=== PATIENT | male | born 1965 | race Caucasian/White ===

== ENCOUNTER 2017-06-20 23:52 | Emergency (ER) | payer OTHER ==
[2017-06-21 00:27] VITALS: BP 143/94; PULSE 102; O2SAT 96
[2017-06-21] MEDS ORDERED: PHENERGAN 25 MG PO ONE (00:47)
[2017-06-21] MEDS ORDERED: PHENERGAN 25 MG ONE (00:48)
--- NOTE | 2017-06-21 00:53 | ERPHSYRPT ---
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 pt states he lost his father a month ago and has been struggling to cope with his loss and today he had a really rough day and argued with his mother and family; pt states he was just drinking alcohol to cope with his loss and family issues. Triage Nursing Assessment: pt ambulated to room per self; a&o x3; skin p, w, & d ; pt's speech slightly slurred and slow but answers appropriately; pt denies any other distress or discomfort other than states he feels slightly nauseous. 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 pt states he lost his father a month ago and has been struggling to cope with his loss and today he had a really rough day and argued with his mother and family; pt states he was just drinking alcohol to cope with his loss and family issues. Timing/Duration: today Severity of Symptoms-Max: none Severity of Symptoms-Current: none Context related to: parent, recent Associated Symptoms: depressed, frustrated, No agitated, No anxiety, No confused , No hostile, No hallucinating, No impaired concentration, No ingestion, No injury, No insomnia, No paranoid, No suicidal ideation Previous symptoms: no prior history Allergies/Adverse Reactions: Penicillins Allergy (Mild, Verified 06/21/17 00:27) Home Medications: Pravastatin Sodium [Pravachol] 10 mg PO HS 11/14/15 [History] Hx Tetanus, Diphtheria Vaccination/Date Given: No Hx Influenza Vaccination/Date Given: No Hx Pneumococcal Vaccination/Date Given: No Immunizations Up to Date: No - Past Medical History Pertinent Past Medical History: No Cardiac History: Other Other Medical History: tendonitis rt arm. pericarditis - Past Surgical History Past Surgical History: Yes Musculoskeletal: Amputation Other Surgical History: left fifth finger amputation at [facility] - Social History Smoking Status: Current every day smoker How long have you smoked: 25 Exposure to second hand smoke: No Drug Use: none Patient Lives Alone: No - Review of Systems Constitutional: No Fever, No Chills Eyes: No Symptoms Ears, Nose, & Throat: No Symptoms Respiratory: No Cough, No Dyspnea Cardiac: No Chest Pain, No Edema, No Syncope Abdominal/Gastrointestinal: No Abdominal Pain, No Nausea, No Vomiting, No Diarrhea Genitourinary Symptoms: No Dysuria Musculoskeletal: No Back Pain, No Neck Pain Skin: No Rash Neurological: No Dizziness, No Focal Weakness, No Sensory Changes Psychological: Alcohol Abuse, Depression Endocrine: No Symptoms All Other Systems: Reviewed and Negative - Nursing Vital Signs Nursing Vital Signs: Initial Vital Signs Temperature 98 F 06/21/17 00:05 Pulse Rate 102 H 06/21/17 00:05 Respiratory Rate 14 06/21/17 00:05 Blood Pressure 143/94 06/21/17 00:05 O2 Sat by Pulse Oximetry 96 06/21/17 00:05 Pain Scale Pain Intensity 3 - Physical Exam General Appearance: no apparent distress Eyes, Ears, Nose, Throat Exam: normal ENT inspection Neck Exam: normal inspection Gastrointestinal/Abdominal Exam: soft Neurological Exam: alert, normal mood/affect, calm Appearance: appropriate appearance, no memory impairment, denies illness Behavior/Eye Contact/Speech: alert & cooperative Thoughts/Hallucinations: normal thought pattern, no apparent hallucination Skin Exam: normal color SpO2 Interpretation: normal SpO2: 96 Oxygen Delivery: Room Air - Course Nursing assessment & vital signs reviewed: Yes Ordered Tests: Medication Summary Generic Name Dose Route Start Last Admin Trade Name Freq PRN Reason Stop Dose Admin Promethazine HCl 25 mg 06/21/17 00:47 Phenergan 25 Mg PO 06/21/17 00:48 STAT ONE - Progress Progress: improved Progress Note: 06/21/17 00:50 I have a long discussion with patient and his about patient. Current situation with his mother and recent of his father. Patient is very cooperative and he understand the consequences of alcohol use and hydrocodone use to gather. I advise patient to go to [facility] for counseling which patient and his . They both agreed. Patient also agreed that he will not take anymore hydrocodone, as well as he will not drink anymore and his confirms that too. Patient wants to go home and I advised him to stay away from alcohol and hydrocodone, as well as his also agreed and she is going to take away all those hydrocodone's and alcohol of a from him and see Will take him to [facility] on Friday. She is advised that if situation worsens, she can bring him back to the emergency room. Counseled pt/family regarding: diagnosis, need for follow-up ([facility]) - Departure Time of Disposition: 00:53 Departure Disposition: Home Clinical Impression: Alcohol cessation counseling, Depressed affect, Other, mixed, or unspecified nondependent drug abuse, episodic Condition: Stable Critical Care Time: Yes Critical Care Time(excluding separately billable procedures): 30-74 minutes Referrals: GEOVANY LUX [Primary Care Provider] - Instructions: Alcohol Abuse and Alcoholism (DC), Adjustment Disorder, Depression, Screening for Depression, Tips for How to Help Your Mood Additional Instructions: Please do not drink any more alcohol, as well as do not take any more hydrocodone with alcohol, which is dangerous to your health and can cause factor liver damage. You are suffering from situational depression and you do need counseling. He should follow-up at [facility] on Friday as you can have a walk-in appointment. If your symptoms, and situation get worse. you always can come back to the emergency room KEYSNEIL was seen on 06/21/17 n the Emergency Room. At that time you were treated for an emergent condition, during your visit Laboratory, Radiology and/or other procedures may have been ordered. It is very important that you follow-up with your Primary Care Physician GEOVANY LUX within the next 24- 48 hours to review your Emergency Room visit and the final results of testing that was ordered. Some test results such as Urine Cultures, Blood Cultures, and other cultures if ordered will not be finalized for 24-48 hours. If you do not have a Primary Care Provider please call the medical records department at [phone] to obtain a copy of your results or you may sign into our patient portal to obtain these results by visiting us @ [email or web address] and completing the following steps: 1. Click on the Patient Portal link 2. Click the Patient Self Enrollment Link to complete the enrollment form and entering your 3. Once the enrollment form is completed you will receive an email with a temporary ID and password at the email address you provided. 4. Next choose a user name and password. Your user name must be at least 4 characters long and your password must be at least 4 characters long. 5. Choose a security question from the list and provide your answer to the question. If you already have signed into the Health Portal you may access your Health Care Information 14/10 by the following steps: 1. Login to our website @ [email or web address] 2. Enter your original user name and password. FAQS The [facility] Health Portal is an online tool that contains your Lab Results, Radiology Reports, Visit History, Discharge Instructions and Health Summary Lab and Radiology Results will not be available for 72 hours on the portal. The Portal is a secure site, passwords are encryted and URLs are re-written so they cannot be copied and pasted. You and authorized family members are the only ones who can access your Portal. Also there is a timeout feature that protects your information if you leave the Portal page open. If you have technical difficulty please use the Contact Us link on the page this will allow you to submit any questions you have regarding the Portal or you may contact the Medical Record Department at [phone]. Prescriptions: Promethazine HCl 12.5 mg PO Q6H PRN #20 tablet PRN Reason: Nausea
== END 2017-06-21 01:04 | disposition home or self-care (01) ==
LOC: ED 23:52
DX: F39 Unspecified mood [affective] disorder (principal); F19.10 Other psychoactive substance abuse, uncomplicated; Z71.41 Alcohol abuse counseling and surveillance of alcoholic; F10.10 Alcohol abuse, uncomplicated
CPT/HCPCS: 99283; A9270-GY

== ENCOUNTER 2018-09-07 10:11 | Emergency (ER) | payer OTHER ==
[2018-09-07] MEDS ORDERED: Sodium Chloride 0.9% 1000 ML 1,000 ML IV STA (10:20)
[2018-09-07] MEDS ORDERED: Zofran 4 MG/2 ML VIAL IV ONE (10:20)
[2018-09-07] MEDS ORDERED: PROTONIX 40 MG IV IV ONE (10:20)
--- NOTE | 2018-09-07 10:20 | ERPHSYRPT ---
- History of Present Illness Time Seen by Provider: 09/07/18 10:18 Historian: patient, EMS Exam Limitations: no limitations Physician History: 53 y/o white male presents via EMS for feeling weak, shaky and hot. sx began this am. no vomiting but has nausea. no diarrhea. no cp and no abd pain. pt denies new meds. pt does drink beer every day. last alcohol intake was at 2230 last night. pt denies illicit drug use but pt is prescribed benzodiazepines and hydrocodone. pt denies new emotional stressors Timing/Duration: today Activities at Onset: none Abdominal Pain Onset Location: other (no pain) Pain Radiation: no radiation Severity of Pain-Max: none Severity of Pain-Current: none Modifying Factors: Improves With: nothing Associated Symptoms: diaphoresis, nausea Previous symptoms: no prior history Allergies/Adverse Reactions: Penicillins Allergy (Mild, Verified 09/07/18 10:26) Home Medications: Alprazolam 0.5 mg [xanAX 0.5 MG] 0.5 mg DAILY 09/07/18 [History] Hx Tetanus, Diphtheria Vaccination/Date Given: No Hx Influenza Vaccination/Date Given: No Hx Pneumococcal Vaccination/Date Given: No - Review of Systems Constitutional: Weakness Eyes: No Symptoms Ears, Nose, & Throat: No Symptoms Cardiac: No Symptoms Abdominal/Gastrointestinal: Nausea Genitourinary Symptoms: No Symptoms Musculoskeletal: No Symptoms Skin: Other (diaphoresis) Neurological: No Symptoms Psychological: No Symptoms Endocrine: No Symptoms Hematologic/Lymphatic: No Symptoms Immunological/Allergic: No Symptoms All Other Systems: Reviewed and Negative - Past Medical History Pertinent Past Medical History: No Neurological History: No Pertinent History ENT History: No Pertinent History Cardiac History: Other Respiratory History: No Pertinent History Endocrine Medical History: No Pertinent History Musculoskeletal History: No Pertinent History GI Medical History: No Pertinent History History: No Pertinent History Psycho-Social History: No Pertinent History Male Reproductive Disorders: No Pertinent History Other Medical History: tendonitis rt arm. pericarditis - Past Surgical History Past Surgical History: Yes Neuro Surgical History: No Pertinent History Cardiac: No Pertinent History Respiratory: No Pertinent History Gastrointestinal: No Pertinent History Musculoskeletal: Amputation Male Surgical History: No Pertinent History Other Surgical History: left fifth finger amputation at [facility] - Social History Smoking Status: Current every day smoker How long have you smoked: 25 Exposure to second hand smoke: No Drug Use: none Patient Lives Alone: No - Nursing Vital Signs Nursing Vital Signs: Initial Vital Signs Temperature 97.9 F 09/07/18 10:11 Pulse Rate 74 09/07/18 10:11 Respiratory Rate 16 09/07/18 10:11 Blood Pressure 151/103 09/07/18 10:11 O2 Sat by Pulse Oximetry 100 09/07/18 10:11 Pain Scale Pain Intensity 0 - Physical Exam General Appearance: mild distress, alert, anxiety Eye Exam: PERRL/EOMI, eyes nml inspection Ears, Nose, Throat Exam: normal ENT inspection, moist mucous membranes Neck Exam: normal inspection, non-tender, supple, full range of motion Respiratory Exam: normal breath sounds, lungs clear, airway intact, No chest tenderness, No respiratory distress Cardiovascular Exam: regular rate/rhythm, normal heart sounds, normal peripheral pulses Gastrointestinal/Abdomen Exam: soft, normal bowel sounds, No tenderness Rectal Exam: not done Back Exam: normal inspection, normal range of motion, No CVA tenderness, No vertebral tenderness Extremity Exam: normal inspection, normal range of motion, pelvis stable Neurologic Exam: alert, oriented x 3, cooperative, barrel lapper II-XII nml as tested Skin Exam: normal color, warm, dry Lymphatic Exam: No adenopathy SpO2 Interpretation: normal SpO2: 100 O2 Delivery: Room Air - Course Nursing assessment & vital signs reviewed: Yes EKG Interpreted by Me: RATE ([id number]), Sinus Rhythm, NORMAL AXIS, NORMAL INTERVALS, NORMAL QRS Ordered Tests: Active Orders 24 hr Category Date Time Status Clean Catch Urine Specimen STAT Care 09/07/18 10:20 Active EKG-ER Only STAT Care 09/07/18 10:36 Active IV Insertion STAT Care 09/07/18 10:20 Active AMYLASE Stat Lab 09/07/18 10:45 Completed Alcohol [ETHYL ALCOHOL] Stat Lab 09/07/18 10:35 Completed CBC W DIFF Stat Lab 09/07/18 10:45 Completed CMP Stat Lab 09/07/18 10:45 Completed LIPASE Stat Lab 09/07/18 10:45 Completed Lactic Acid Stat Lab 09/07/18 10:45 Results UA W/RFX UR CULTURE Stat Lab 09/07/18 11:09 Completed Urine Triage Profile Stat Lab 09/07/18 11:09 Ordered Medication Summary Discontinued Medications Generic Name Dose Route Start Last Admin Trade Name Freq PRN Reason Stop Dose Admin Famotidine 20 mg 09/07/18 10:44 09/07/18 10:51 Pepcid 20 Mg Vial IV 09/07/18 10:45 20 mg STAT ONE Administration Famotidine Confirm 09/07/18 10:43 Pepcid 20 Mg Vial Administered 09/07/18 10:44 Dose 20 mg IV .STK-MED ONE Sodium Chloride 1,000 mls @ 999 mls/hr 09/07/18 10:20 09/07/18 10:51 Sodium Chloride 0.9% 1000 Ml IV 09/07/18 11:20 999 mls/hr .Q1H1M STA Administration Sodium Chloride Confirm 09/07/18 10:37 Sodium Chloride 0.9% 1000 Ml Administered 09/07/18 10:38 Dose 1,000 mls @ ud .ROUTE .STK-MED ONE Ondansetron HCl 4 mg 09/07/18 10:20 09/07/18 11:08 Zofran 4 Mg/2 Ml Vial IV 09/07/18 10:21 Not Given STAT ONE Ondansetron HCl Confirm 09/07/18 10:36 Zofran 4 Mg/2 Ml Vial Administered 09/07/18 10:37 Dose 4 mg .ROUTE .STK-MED ONE Pantoprazole Sodium 40 mg 09/07/18 10:20 09/07/18 10:40 Protonix 40 Mg Iv IV 09/07/18 10:21 Not Given STAT ONE Lab/Rad Data: Laboratory Result Diagrams 09/07/18 10:45 09/07/18 10:45 Laboratory Results 09/07/18 09/07/18 09/07/18 Range/Units 11:09 10:45 10:45 WBC (4.0-10.5) K/mm3 RBC (4.1-5.6) M/mm3 Hgb (12.5-18.0) gm/dl Hct (42-50) % MCV (78-100) fl MCH (26-32) pg MCHC (32-36) g/dl RDW (11.5-14.0) % Plt Count (150-450) K/mm3 MPV (6-9.5) fl Gran % (36.0-66.0) % Eos # (Auto) (0-0.5) Absolute Lymphs (auto) (1.0-4.6) Absolute Monos (auto) (0.0-1.3) Lymphocytes % (24.0-44.0) % Monocytes % (0.0-12.0) % Eosinophils % (0.00-5.0) % Basophils % (0.0-0.4) % Absolute Granulocytes (1.4-6.9) Basophils # (0-0.4) Sodium 140 (137-145) mmol/L Potassium 4.0 (3.5-5.1) mmol/L Chloride 105 (98-107) mmol/L Carbon Dioxide 25 (22-30) mmol/L Anion Gap 14.0 (5-15) MEQ/L BUN 6 L (9-20) mg/dL Creatinine 0.58 L (0.66-1.25) mg/dL Estimated GFR > 60.0 ML/MIN Glucose 72 L (74-106) mg/dL Lactic Acid 2.0 (0.4-2.0) Calcium 8.4 (8.4-10.2) mg/dL Total Bilirubin 0.20 (0.2-1.3) mg/dL AST 58 (17-59) U/L ALT 50 (0-50) U/L Alkaline Phosphatase 63 (38-126) U/L Serum Total Protein 6.5 (6.3-8.2) g/dL Albumin 3.6 (3.5-5.0) g/dL Amylase 39 (30-110) U/L Lipase 78 (23-300) U/L Urine Color YELLOW (YELLOW) Urine Appearance CLEAR (CLEAR) Urine pH 5.0 (5-6) Ur Specific [place] 1.013 (1.005-1.025) Urine Protein NEGATIVE (Negative) Urine Ketones NEGATIVE (NEGATIVE) Urine Blood NEGATIVE (0-5) Cristino/ul Urine Nitrite NEGATIVE (NEGATIVE) Urine Bilirubin NEGATIVE (NEGATIVE) Urine Urobilinogen NEGATIVE (0-1) mg/dL Ur Leukocyte Esterase NEGATIVE (NEGATIVE) Urine WBC (Auto) NONE (0-5) /HPF Urine RBC (Auto) NONE SEEN (0-2) /HPF U Hyaline Cast (Auto) 0-2 (0-2) /LPF U Epithel Cells (Auto) RARE (FEW) /HPF Urine Bacteria (Auto) NONE SEEN (NEGATIVE) /HPF Urine Mucus (Auto) SLIGHT (NEGATIVE) /HPF Urine Culture Reflexed NO (NO) Urine Glucose NEGATIVE (NEGATIVE) mg/dL Ethyl Alcohol (0-10) mg/dL 09/07/18 09/07/18 Range/Units 10:45 10:35 WBC 3.8 L (4.0-10.5) K/mm3 RBC 3.86 L (4.1-5.6) M/mm3 Hgb 12.8 (12.5-18.0) gm/dl Hct 38.7 L (42-50) % MCV 100.3 H (78-100) fl MCH 33.1 H (26-32) pg MCHC 33.1 (32-36) g/dl RDW 12.4 (11.5-14.0) % Plt Count 227 (150-450) K/mm3 MPV 8.4 (6-9.5) fl Gran % 55.9 (36.0-66.0) % Eos # (Auto) 0.04 (0-0.5) Absolute Lymphs (auto) 1.18 (1.0-4.6) Absolute Monos (auto) 0.44 (0.0-1.3) Lymphocytes % 31.1 (24.0-44.0) % Monocytes % 11.6 (0.0-12.0) % Eosinophils % 1.1 (0.00-5.0) % Basophils % 0.3 (0.0-0.4) % Absolute Granulocytes 2.12 (1.4-6.9) Basophils # 0.01 (0-0.4) Sodium (137-145) mmol/L Potassium (3.5-5.1) mmol/L Chloride (98-107) mmol/L Carbon Dioxide (22-30) mmol/L Anion Gap (5-15) MEQ/L BUN (9-20) mg/dL Creatinine (0.66-1.25) mg/dL Estimated GFR ML/MIN Glucose (74-106) mg/dL Lactic Acid (0.4-2.0) Calcium (8.4-10.2) mg/dL Total Bilirubin (0.2-1.3) mg/dL AST (17-59) U/L ALT (0-50) U/L Alkaline Phosphatase (38-126) U/L Serum Total Protein (6.3-8.2) g/dL Albumin (3.5-5.0) g/dL Amylase (30-110) U/L Lipase (23-300) U/L Urine Color (YELLOW) Urine Appearance (CLEAR) Urine pH (5-6) Ur Specific [place] (1.005-1.025) Urine Protein (Negative) Urine Ketones (NEGATIVE) Urine Blood (0-5) Cristino/ul Urine Nitrite (NEGATIVE) Urine Bilirubin (NEGATIVE) Urine Urobilinogen (0-1) mg/dL Ur Leukocyte Esterase (NEGATIVE) Urine WBC (Auto) (0-5) /HPF Urine RBC (Auto) (0-2) /HPF U Hyaline Cast (Auto) (0-2) /LPF U Epithel Cells (Auto) (FEW) /HPF Urine Bacteria (Auto) (NEGATIVE) /HPF Urine Mucus (Auto) (NEGATIVE) /HPF Urine Culture Reflexed (NO) Urine Glucose (NEGATIVE) mg/dL Ethyl Alcohol 94 H (0-10) mg/dL - Progress Progress: improved, re-examined Counseled pt/family regarding: lab results, diagnosis, need for follow-up - Departure Departure Disposition: Home Clinical Impression: Weakness Condition: Stable Critical Care Time: No Referrals: GEOVANY LUX [Primary Care Provider] - Additional Instructions: avoid alcohol ingestion. take your medications as prescribed. follow up with your primary doctor for further management
[2018-09-07] MEDS ORDERED: Zofran 4 MG/2 ML VIAL ONE (10:36)
[2018-09-07] MEDS ORDERED: Sodium Chloride 0.9% 1000 ML 1,000 ML ONE (10:37)
[2018-09-07] MEDS ORDERED: Pepcid 20 MG VIAL IV ONE ×2 (10:43→10:44)
[2018-09-07 10:53] LABS: BASOPHIL % 0.3 % (0.0-0.4); Basophil (Absolute #) 0.01 (0-0.4); Eosinophil % 1.1 % (0.00-5.0); Eosinophil (Absolute #) 0.04 (0-0.5); Granulocyte Absolute (ANC) 2.12 (1.4-6.9); Granulocytes % 55.9 % (36.0-66.0); Hematocrit 38.7 % (42-50); Hemoglobin 12.8 gm/dl (12.5-18.0); Lymphocyte (Absolute #) 1.18 (1.0-4.6); Lymphocytes % 31.1 % (24.0-44.0); Mean Cell Volume 100.3 fl (78-100); Mean Corpuscular Hgb Concent. 33.1 g/dl (32-36); Mean Platelet Volume 8.4 fl (6-9.5); Monocytes % 11.6 % (0.0-12.0); Platelet Count 227 K/mm3 (150-450); Red Blood Count 3.86 M/mm3 (4.1-5.6); Red Cell Distribution Width 12.4 % (11.5-14.0); White Blood Count 3.8 K/mm3 (4.0-10.5)
[2018-09-07 10:58] LABS: ALBUMIN 3.6 g/dL (3.5-5.0); ALKALINE PHOSPHATASE 63 U/L (38-126); AMYLASE 39 U/L (30-110); BLOOD UREA NITROGEN 6 mg/dL (9-20); CHLORIDE 105 mmol/L (98-107); Calcium 8.4 mg/dL (8.4-10.2); Carbon Dioxide 25 mmol/L (22-30); Creatinine 1 0.58 mg/dL (0.66-1.25); Glucose 72 mg/dL (74-106); LIPASE 78 U/L (23-300); SGOT/AST 58 U/L (17-59); SGPT/ALT 50 U/L (0-50); SODIUM 140 mmol/L (137-145); Total Protein 6.5 g/dL (6.3-8.2)
[2018-09-07 10:59] LABS: Mean Corpuscular Hemoglobin 33.1 pg (26-32)
[2018-09-07 11:55] LABS: Appearance CLEAR (CLEAR); Bacteria NONE SEEN /HPF (NEGATIVE); Bilirubin NEGATIVE (NEGATIVE); Blood NEGATIVE Ery/ul (0-5); Glucose NEGATIVE (NEGATIVE); Hyaline Casts 0-2 /LPF (0-2); Ketones NEGATIVE (NEGATIVE); Leukocyte Esterase NEGATIVE (NEGATIVE); Mucus SLIGHT /HPF (NEGATIVE); Nitrite NEGATIVE (NEGATIVE); Protein,Urine Dip NEGATIVE (Negative); RBC NONE SEEN /HPF (0-2); Specific Gravity 1.013 (1.005-1.025); Urobilinogen NEGATIVE mg/dL (0-1)
[2018-09-07 11:56] LABS: Epithelial Cells RARE /HPF (FEW)
[2018-09-07 12:35] LABS: Amphetamine,Urine NEGATIVE (NEGATIVE); Barbiturate,Urine NEGATIVE (NEGATIVE); Benzodiazepine,Urine NEGATIVE (NEGATIVE); Cocaine,Urine NEGATIVE (NEGATIVE); Methadone,Urine NEGATIVE (NEGATIVE); Opiate,Urine POSITIVE (NEGATIVE); PCP,Urine NEGATIVE (NEGATIVE); THC,Urine POSITIVE (NEGATIVE)
[2018-09-07 13:11] VITALS: BP 137/88; PULSE 86; O2SAT 98
== END 2018-09-07 13:27 | disposition home or self-care (01) ==
LOC: ED 10:11
DX: R53.1 Weakness (principal)
CPT/HCPCS: 36415; 80053; 80307; 81001; 82150; 83605; 83690; 85025; 93005; 96360; 96361; 96374; 99284; G0480; 96375; J2405

== ENCOUNTER 2019-09-02 20:14 | Emergency (ER) | payer OTHER ==
[2019-09-02] MEDS ORDERED: Sodium Chloride 0.9% 1000 ML 1,000 ML IV STA (20:18)
[2019-09-02] MEDS ORDERED: Ativan 2 MG/1 ML VIAL IV ONE (20:18)
[2019-09-02] MEDS ORDERED: Ativan 2 MG/1 ML VIAL ONE (20:26)
[2019-09-02] MEDS ORDERED: Sodium Chloride 0.9% 1000 ML 1,000 ML ONE (20:29)
[2019-09-02] MEDS ORDERED: Vitamins For Infusion 10 ML INJECTION*** 10 ML, THIAMINE 200 MG/2 ML*** 100 MG, FOLNATE... IV SCH ×4 (20:30)
[2019-09-02 20:34] LABS: Absolute Neutrophil Ct (ANC) 3.63 (1.4-6.9); BASOPHIL % 0.2 % (0.0-0.4); Basophil (Absolute #) 0.01 (0-0.4); Eosinophil % 0.5 % (0.00-5.0); Eosinophil (Absolute #) 0.03 (0-0.5); Hematocrit 42.1 % (42-50); Hemoglobin 14.2 gm/dl (12.5-18.0); Lymphocytes % 23.1 % (24.0-44.0); Mean Cell Volume 99.5 fl (78-100); Mean Corpuscular Hemoglobin 33.6 pg (26-32); Mean Corpuscular Hgb Concent. 33.7 g/dl (32-36); Mean Platelet Volume 9.1 fl (7.5-11.0); Monocyte (Absolute #) 0.66 (0.0-1.3); Monocytes % 11.7 % (0.0-12.0); Neutrophil % 64.5 % (36.0-66.0); Platelet Count 150 K/mm3 (150-450); Red Blood Count 4.23 M/mm3 (4.1-5.6); Red Cell Distribution Width 13.2 % (11.5-14.0); White Blood Count 5.6 K/mm3 (4.0-10.5)
[2019-09-02] MEDS ORDERED: THIAMINE 200 MG/2 ML ONE (20:34)
[2019-09-02] MEDS ORDERED: THIAMINE 200 MG/2 ML IV ONE (20:35)
[2019-09-02 20:45] LABS: ALBUMIN 4.7 g/dL (3.5-5.0); ALKALINE PHOSPHATASE 109 U/L (38-126); ANION GAP 22.5 MEQ/L (5-15); BLOOD UREA NITROGEN 7 mg/dL (9-20); CHLORIDE 98 mmol/L (98-107); Calcium 9.8 mg/dL (8.4-10.2); Carbon Dioxide 18 mmol/L (22-30); Creatinine 1 0.65 mg/dL (0.66-1.25); Glucose 137 mg/dL (74-106); Potassium 3.5 mmol/L (3.5-5.1); SGOT/AST 121 U/L (17-59); SODIUM 135 mmol/L (137-145); Total Protein 8.1 g/dL (6.3-8.2)
[2019-09-02 21:01] LABS: ETHYL ALCOHOL < 10 mg/dL (0-10); SGPT/ALT 101 U/L (0-50)
[2019-09-02 21:17] LABS: Appearance CLEAR (CLEAR); Bilirubin NEGATIVE (NEGATIVE); Blood SMALL Ery/ul (0-5); Glucose NEGATIVE (NEGATIVE); Ketones NEGATIVE (NEGATIVE); Leukocyte Esterase NEGATIVE (NEGATIVE); Mucus SLIGHT /HPF (NEGATIVE); Nitrite NEGATIVE (NEGATIVE); Protein,Urine Dip 30 (Negative); Specific Gravity 1.005 (1.005-1.025); Urobilinogen NEGATIVE mg/dL (0-1)
[2019-09-02 21:24] LABS: Amphetamine,Urine NEGATIVE (NEGATIVE); Barbiturate,Urine NEGATIVE (NEGATIVE); Benzodiazepine,Urine NEGATIVE (NEGATIVE); Cocaine,Urine NEGATIVE (NEGATIVE); Methadone,Urine NEGATIVE (NEGATIVE); Opiate,Urine POSITIVE (NEGATIVE); PCP,Urine NEGATIVE (NEGATIVE); THC,Urine POSITIVE (NEGATIVE)
--- NOTE | 2019-09-02 21:55 | ERPHSYRPT ---
- History of Present Illness Time Seen by Provider: 09/02/19 20:40 Patient Subjective Stated Complaint: called 911 stated she found patient ( ) on floor shaking and what appeared to be convulsing. Triage Nursing Assessment: Patient arrived via ambulance. Patient awake and A/O times 4. Patient able to answer questions appropriatley. Patient did have urinary incontinence upon arrival to ER. Patient sof spoken. Patient does not recall the incident. at bedside stated they were in [place] and were playing a dice game when she noticed his tremors got worse and then she stated he started seizing. Upon arrival patient requested bedpan that he needed to have a BM. Lungs clear bilateral A/P throughout. Patient denies SOB. Patient denies chest pain. Cap refill < 3 seconds. No S/S of respiratory distress noted. + BS times 4 quads. ABD soft flat nondistended. Patient denies any pain or discomfort upon palpitation. Bilateral pedal pulses noted. Hand bottom filler strong and equal. Bilateral pupils brisk and reactive to light. Patient able to follow commands. Patient denies any N/V. stated patient did not hit head. Patient denies pain or discomfort. Patient denies H/A. Patient denies any numbness or tingling. Physician History: Patient is a 54-year-old white male who was noted to have seizure activity. It was felt this was probably related to alcohol withdrawal. Although the patient who is somewhat jittery and anxious. Apparently he had had no alcohol for 3 days. Does not report any previous history of seizure activity. Seizure was brief lasting about 15 seconds. Seizure was observed by his . Timing/Duration: today Severity: moderate Character of Deficits: none Deficits: no difficulties Baseline/Normal Cognition: alert oriented x 3 Current Cognition: alert oriented x 3 Baseline Gait: walks w/o assistance Associated Symptoms: loss of consciousness, seizures Allergies/Adverse Reactions: Penicillins Allergy (Mild, Verified 09/02/19 20:50) Home Medications: Alprazolam 0.5 mg [xanAX 0.5 MG] 0.5 mg DAILY 09/07/18 [History] Aspirin [Aspirin EC] 81 mg PO DAILY 09/02/19 [History] Baclofen 10 mg PO HS 09/02/19 [History] Cyanocobalamin (Vitamin B-12) [B-12] 5,000 mcg PO DAILY 09/02/19 [History] Gabapentin 600 mg PO DAILY 09/02/19 [History] Metoprolol Succinate 25 mg PO DAILY 09/02/19 [History] Sertraline HCl 50 mg PO DAILY 09/02/19 [History] Trazodone HCl 50 mg [Desyrel 50 mg] 50 mg PO HS 09/02/19 [History] Hx Tetanus, Diphtheria Vaccination/Date Given: Yes Hx Influenza Vaccination/Date Given: No Hx Pneumococcal Vaccination/Date Given: No Immunizations Up to Date: Yes Travel Risk - International Travel Have you traveled outside of the country in past 3 weeks: No - Coronavirus Screening Close contact with a COVID-19 positive Pt in past 14-21 Days: No - Review of Systems Constitutional: No Fever, No Chills Eyes: No Symptoms Ears, Nose, & Throat: No Symptoms Respiratory: No Cough, No Dyspnea Cardiac: No Chest Pain, No Edema, No Syncope Abdominal/Gastrointestinal: No Abdominal Pain, No Nausea, No Vomiting, No Diarrhea Genitourinary Symptoms: No Dysuria Musculoskeletal: No Back Pain, No Neck Pain Skin: No Rash Neurological: Seizure, No Dizziness, No Focal Weakness, No Sensory Changes Psychological: No Symptoms Endocrine: No Symptoms All Other Systems: Reviewed and Negative - Past Medical History Pertinent Past Medical History: No Neurological History: No Pertinent History ENT History: No Pertinent History Cardiac History: Other Respiratory History: No Pertinent History Endocrine Medical History: No Pertinent History Musculoskeletal History: No Pertinent History GI Medical History: No Pertinent History History: No Pertinent History Psycho-Social History: No Pertinent History Male Reproductive Disorders: No Pertinent History Other Medical History: tendonitis rt arm. pericarditis - Past Surgical History Past Surgical History: Yes Neuro Surgical History: No Pertinent History Cardiac: No Pertinent History Respiratory: No Pertinent History Gastrointestinal: No Pertinent History Genitourinary: No Pertinent History Musculoskeletal: Amputation Male Surgical History: No Pertinent History Other Surgical History: left fifth finger amputation at [facility] - Social History Smoking Status: Current every day smoker How long have you smoked: 25 years Exposure to second hand smoke: Yes Drug Use: none Patient Lives Alone: No - Nursing Vital Signs Nursing Vital Signs: Initial Vital Signs Temperature 97.8 F 09/02/19 20:23 Pulse Rate 91 H 09/02/19 20:23 Respiratory Rate 17 09/02/19 20:23 Blood Pressure 152/98 09/02/19 20:23 O2 Sat by Pulse Oximetry 99 09/02/19 20:23 Pain Scale Pain Intensity 0 - [place] Coma Scale Best Eye Response ([place]): (4) open spontaneously Best Verbal Response ([place]): (5) oriented Best Motor Response ([place]): (6) obeys commands [place] Total: 15 - Physical Exam General Appearance: mild distress Eye Exam: bilateral eye: PERRL, EOMI Ears, Nose, Throat Exam: normal ENT inspection, moist mucous membranes Neck Exam: normal inspection, non-tender, supple Respiratory: normal breath sounds, lungs clear, airway intact, No respiratory distress Cardiovascular: regular rate/rhythm, No edema Gastrointestinal: soft, No tenderness, No distention Back Exam: normal inspection Extremity Exam: normal inspection, No pedal edema Mental Status: alert, 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 Coordination/Gait: normal finger to nose, normal gait Motor/Sensory: no motor deficit, no sensory deficit Skin Exam: normal color SpO2 Interpretation: normal SpO2: 97 O2 Delivery: Room Air - Course Nursing assessment & vital signs reviewed: Yes - CT Exams Head CT Interpretation: Negative Ordered Tests: Active Orders 24 hr Category Date Time Status Accucheck STAT Care 09/02/19 20:18 Active IV Insertion STAT Care 09/02/19 20:18 Active IV Insertion-2nd Peripheral STAT Care 09/02/19 20:30 Active Seizure Precautions -SCCHED STAT Care 09/02/19 20:18 Active CHEST 1 VIEW (PORTABLE) Stat Exams 09/02/19 20:19 Ordered HEAD WITHOUT CONTRAST [CT] Stat Exams 09/02/19 20:19 Ordered CBC W DIFF Stat Lab 09/02/19 20:20 Completed CMP Stat Lab 09/02/19 20:20 Completed ETHYL ALCOHOL Stat Lab 09/02/19 20:20 Completed Lactic Acid Stat Lab 09/02/19 21:52 Completed UA W/RFX UR CULTURE Stat Lab 09/02/19 21:02 Completed Urine Triage Profile Stat Lab 09/02/19 21:02 Completed Medication Summary Generic Name Dose Route Start Last Admin Trade Name Freq PRN Reason Stop Dose Admin Multivitamins/Minerals 10 ml/ 1,000 mls @ 100 mls/hr 09/02/19 20:30 09/02/19 20:34 Thiamine HCl 100 mg/ Folic IV 10/02/19 20:29 Not Given Acid 1 mg/ Sodium Chloride .Q10H VERA Discontinued Medications Generic Name Dose Route Start Last Admin Trade Name Félix PRN Reason Stop Dose Admin Sodium Chloride 1,000 mls @ 999 mls/hr 09/02/19 20:18 09/02/19 21:06 Sodium Chloride 0.9% 1000 Ml IV 09/02/19 21:18 Infused .Q1H1M STA Infusion Sodium Chloride Confirm 09/02/19 20:29 Sodium Chloride 0.9% 1000 Ml Administered 09/02/19 20:30 Dose 1,000 mls @ ud .ROUTE .STK-MED ONE Lorazepam 2 mg 09/02/19 20:18 09/02/19 20:28 Ativan 2 Mg/1 Ml Vial IV 09/02/19 20:19 2 mg STAT ONE Administration Lorazepam Confirm 09/02/19 20:26 Ativan 2 Mg/1 Ml Vial Administered 09/02/19 20:27 Dose 2 mg .ROUTE .STK-MED ONE Thiamine HCl 100 mg 09/02/19 20:35 09/02/19 20:36 Thiamine 200 Mg/2 Ml IV 09/02/19 20:36 100 mg STAT ONE Administration Thiamine HCl Confirm 09/02/19 20:34 Thiamine 200 Mg/2 Ml Administered 09/02/19 20:35 Dose 200 mg .ROUTE .STK-MED ONE Lab/Rad Data: Laboratory Result Diagrams 09/02/19 20:20 09/02/19 20:20 Laboratory Results 09/02/19 09/02/19 09/02/19 Range/Units 21:52 21:02 21:02 WBC (4.0-10.5) K/mm3 RBC (4.1-5.6) M/mm3 Hgb (12.5-18.0) gm/dl Hct (42-50) % MCV (78-100) fl MCH (26-32) pg MCHC (32-36) g/dl RDW (11.5-14.0) % Plt Count (150-450) K/mm3 MPV (7.5-11.0) fl Gran % (36.0-66.0) % Eos # (Auto) (0-0.5) Absolute Lymphs (auto) (1.0-4.6) Absolute Monos (auto) (0.0-1.3) Lymphocytes % (24.0-44.0) % Monocytes % (0.0-12.0) % Eosinophils % (0.00-5.0) % Basophils % (0.0-0.4) % Absolute Granulocytes (1.4-6.9) Basophils # (0-0.4) Sodium (137-145) mmol/L Potassium (3.5-5.1) mmol/L Chloride (98-107) mmol/L Carbon Dioxide (22-30) mmol/L Anion Gap (5-15) MEQ/L BUN (9-20) mg/dL Creatinine (0.66-1.25) mg/dL Estimated GFR ML/MIN Glucose (74-106) mg/dL Lactic Acid 1.6 (0.4-2.0) Calcium (8.4-10.2) mg/dL Total Bilirubin (0.2-1.3) mg/dL AST (17-59) U/L ALT (0-50) U/L Alkaline Phosphatase (38-126) U/L Serum Total Protein (6.3-8.2) g/dL Albumin (3.5-5.0) g/dL Urine Color YELLOW (YELLOW) Urine Appearance CLEAR (CLEAR) Urine pH 6.0 (5-6) Ur Specific [place] 1.005 (1.005-1.025) Urine Protein 30 (Negative) Urine Ketones NEGATIVE (NEGATIVE) Urine Blood SMALL (0-5) Cristino/ul Urine Nitrite NEGATIVE (NEGATIVE) Urine Bilirubin NEGATIVE (NEGATIVE) Urine Urobilinogen NEGATIVE (0-1) mg/dL Ur Leukocyte Esterase NEGATIVE (NEGATIVE) Urine WBC (Auto) 3-5 (0-5) /HPF Urine RBC (Auto) NONE (0-2) /HPF U Hyaline Cast (Auto) 3-5 (0-2) /LPF U Epithel Cells (Auto) NONE (FEW) /HPF Urine Bacteria (Auto) NONE (NEGATIVE) /HPF Urine Mucus (Auto) SLIGHT (NEGATIVE) /HPF Urine Culture Reflexed NO (NO) Urine Glucose NEGATIVE (NEGATIVE) mg/dL Urine Opiates Level POSITIVE (NEGATIVE) Ur Methadone NEGATIVE (NEGATIVE) Urine Barbiturates NEGATIVE (NEGATIVE) Ur Phencyclidine (PCP) NEGATIVE (NEGATIVE) Urine Amphetamine NEGATIVE (NEGATIVE) U Benzodiazepine Level NEGATIVE (NEGATIVE) Urine Cocaine NEGATIVE (NEGATIVE) Urine Marijuana (THC) POSITIVE (NEGATIVE) Ethyl Alcohol (0-10) mg/dL 09/02/19 09/02/19 Range/Units 20:20 20:20 WBC 5.6 (4.0-10.5) K/mm3 RBC 4.23 (4.1-5.6) M/mm3 Hgb 14.2 (12.5-18.0) gm/dl Hct 42.1 (42-50) % MCV 99.5 (78-100) fl MCH 33.6 H (26-32) pg MCHC 33.7 (32-36) g/dl RDW 13.2 (11.5-14.0) % Plt Count 150 (150-450) K/mm3 MPV 9.1 (7.5-11.0) fl Gran % 64.5 (36.0-66.0) % Eos # (Auto) 0.03 (0-0.5) Absolute Lymphs (auto) 1.30 (1.0-4.6) Absolute Monos (auto) 0.66 (0.0-1.3) Lymphocytes % 23.1 L (24.0-44.0) % Monocytes % 11.7 (0.0-12.0) % Eosinophils % 0.5 (0.00-5.0) % Basophils % 0.2 (0.0-0.4) % Absolute Granulocytes 3.63 (1.4-6.9) Basophils # 0.01 (0-0.4) Sodium 135 L (137-145) mmol/L Potassium 3.5 (3.5-5.1) mmol/L Chloride 98 (98-107) mmol/L Carbon Dioxide 18 L (22-30) mmol/L Anion Gap 22.5 H (5-15) MEQ/L BUN 7 L (9-20) mg/dL Creatinine 0.65 L (0.66-1.25) mg/dL Estimated GFR > 60.0 ML/MIN Glucose 137 H (74-106) mg/dL Lactic Acid (0.4-2.0) Calcium 9.8 (8.4-10.2) mg/dL Total Bilirubin 0.70 (0.2-1.3) mg/dL AST 121 H (17-59) U/L ALT 101 H (0-50) U/L Alkaline Phosphatase 109 (38-126) U/L Serum Total Protein 8.1 (6.3-8.2) g/dL Albumin 4.7 (3.5-5.0) g/dL Urine Color (YELLOW) Urine Appearance (CLEAR) Urine pH (5-6) Ur Specific [place] (1.005-1.025) Urine Protein (Negative) Urine Ketones (NEGATIVE) Urine Blood (0-5) Cristino/ul Urine Nitrite (NEGATIVE) Urine Bilirubin (NEGATIVE) Urine Urobilinogen (0-1) mg/dL Ur Leukocyte Esterase (NEGATIVE) Urine WBC (Auto) (0-5) /HPF Urine RBC (Auto) (0-2) /HPF U Hyaline Cast (Auto) (0-2) /LPF U Epithel Cells (Auto) (FEW) /HPF Urine Bacteria (Auto) (NEGATIVE) /HPF Urine Mucus (Auto) (NEGATIVE) /HPF Urine Culture Reflexed (NO) Urine Glucose (NEGATIVE) mg/dL Urine Opiates Level (NEGATIVE) Ur Methadone (NEGATIVE) Urine Barbiturates (NEGATIVE) Ur Phencyclidine (PCP) (NEGATIVE) Urine Amphetamine (NEGATIVE) U Benzodiazepine Level (NEGATIVE) Urine Cocaine (NEGATIVE) Urine Marijuana (THC) (NEGATIVE) Ethyl Alcohol < 10 (0-10) mg/dL - Progress Progress: improved Counseled pt/family regarding: drug and/or alcohol abuse, lab results, diagnosis , need for follow-up - Departure Departure Disposition: Home Clinical Impression: Alcohol withdrawal seizure Condition: Stable Critical Care Time: No Referrals: GEOVANY LUX [Primary Care Provider] - Instructions: Seizures, Adult (DC) Prescriptions: Lorazepam 1 mg [Ativan 1 MG] 2 mg PO Q8H PRN PRN #24 tablet PRN Reason: Agitation
[2019-09-02] MEDS ORDERED: Ativan 1 MG ONE (23:11)
[2019-09-02 23:28] VITALS: BP 141/93; PULSE 78; O2SAT 98
--- NOTE | 2019-09-03 13:33 | XRAY ---
Exam: AP upright portable chest film from 09/02/2019. Comparison: Two-view chest from 12/16/2015. Indication: Seizure. Findings: The transverse heart size is normal. There is mild tortuosity of the aortic arch and distal descending thoracic aorta. The meggan and mediastinal structures appear unremarkable. Costochondral calcification is seen at the anterior margin of both first ribs. The lungs are adequately inflated. No air space infiltrates, vascular congestion, pneumothorax, or pleural fluid is seen. Slight mid thoracic dextroscoliosis is again seen. No acute osseous process is seen. Impression: 1. No infiltrates to suggest focal pneumonia or other acute cardiopulmonary disease is seen. The radiographic appearance is essentially unchanged from 12/16/2015.
--- NOTE | 2019-09-03 18:15 | XRAY ---
Exam: CT of the head without IV contrast from 09/02/2019. CTDI: 53.92 mGy Comparison: CT of the head without IV contrast from 08/20/2015. Indication: 54-year-old male with seizures/convulsions. No known injury. Technique: Non-IV contrast axial images were obtained through the brain. Reconstructed coronal and sagittal images were created and reviewed. Findings: The ventricles appear of unremarkable size. No focal mass effect or midline shift is seen. No acute intracranial bleed or abnormal extra-axial fluid collection is seen. Some subtle scattered foci of decreased attenuation are noted within the periventricular and subcortical white matter which may represent mild chronic microvascular disease. This is slightly more prominent on the current study as compared to the prior exam. Specifically, there is more apparent focal decreased attenuation within the white matter just above the right lateral ventricle on coronal images #42 and #43 and sagittal images #36 through #38. I believe this is partially seen on axial image #45 as well. No low attenuation territorial infarct is seen within a major cerebral or cerebellar artery distribution. There is occasional prominence of the cortical sulci. The basilar cisterns appear unremarkable. The calvarium of the skull appears intact without fracture. The right maxillary sinus appears extremely small, perhaps due to the sequela of chronic sinusitis. This is unchanged. There is moderate scattered mucosal thickening within the left maxillary sinus, most prominent inferiorly. There also appears to be a 1.5 cm in diameter retention cyst or polyp within the inferior aspect of the left maxillary sinus. A mild amount of scattered mucosal thickening is seen within the ethmoid sinuses, right slightly greater than left, which is unchanged. No paranasal sinus air-fluid levels are seen. The mastoid air cells appear clear without effusion. Mild deviation of the anterior nasal septum toward the right is seen. The orbits appear unremarkable. Impression: 1. There are subtle changes suggesting chronic microvascular disease. Compared to 08/20/2015, this is a bit more prominent just superior to the right lateral ventricle within the upper right parietal white matter. See above. 2. No acute intracranial bleed or other acute intracranial process is seen. 3. Stable chronic paranasal sinus disease, as discussed above.
[2019-09-03] MEDS ORDERED: Ativan 1 MG PO ONE (23:10)
== END 2019-09-02 23:25 | disposition home or self-care (01) ==
LOC: ED 20:14
DX: F10.239 Alcohol dependence with withdrawal, unspecified (principal); G40.89 Other seizures
CPT/HCPCS: 36000; 36415; 70450; 71045; 80053; 80307; 81001; 82962; 83605; 84146; 85025; 96374; 96375; 99284; G0480; J2060; A9270-GY

== ENCOUNTER 2019-10-26 11:09 | Emergency (ER) | payer OTHER ==
[2019-10-26 11:42] VITALS: O2SAT 100
[2019-10-26] MEDS: Catapres-TTS 1 PATCH TOP SCH (11:57)
--- NOTE | 2019-10-26 11:58 | ERPHSYRPT ---
- History of Present Illness Source: patient Exam Limitations: other (Poor historian) Patient Subjective Stated Complaint: HTN, FATIGUE Triage Nursing Assessment: PT AMBULATED TO ROOM, A/O, DENIES PAIN, LUNGS CLEAR, DENIES SOB, HEART SOUNDS NORMAL REGULAR Physician History: 54 yo wm who is a poor historian presents w elevated BP. He denies CP/focal weakness/Shortness of breath/AYALA/fever/neck stiffness. Pt is supposed to be taking Lopressor 25mg Qd and aldactone 25mg daily. He seems a little confused about his htn regimen, as he appears to take one or the other, instead of both daily. Timing/Duration: other (1-2 wks) Modifying Factors: Improves With: nothing Associated Symptoms: No nausea, No vomiting, No abdominal pain, No shortness of breath, No heartburn, No diaphoresis, No cough, No chills, No chest pain, No fever, No headaches, No loss of appetite, No malaise, No rash, No syncope, No seizure Allergies/Adverse Reactions: Penicillins Allergy (Mild, Verified 09/02/19 20:50) Home Medications: Alprazolam 0.5 mg [xanAX 0.5 MG] 0.5 mg DAILY 09/07/18 [History] Aspirin [Aspirin EC] 81 mg PO DAILY 09/02/19 [History] Baclofen 10 mg PO HS 09/02/19 [History] Cyanocobalamin (Vitamin B-12) [B-12] 5,000 mcg PO DAILY 09/02/19 [History] Gabapentin 600 mg PO DAILY 09/02/19 [History] Metoprolol Succinate 25 mg PO DAILY 09/02/19 [History] Sertraline HCl 50 mg PO DAILY 09/02/19 [History] Trazodone HCl 50 mg [Desyrel 50 mg] 50 mg PO HS 09/02/19 [History] Spironolactone 25 mg PO DAILY 10/26/19 [History] Hx Tetanus, Diphtheria Vaccination/Date Given: Yes Hx Influenza Vaccination/Date Given: No Hx Pneumococcal Vaccination/Date Given: No Immunizations Up to Date: Yes Travel Risk - International Travel Have you traveled outside of the country in past 3 weeks: No - Coronavirus Screening Are you exhibiting any of the following symptoms?: No Close contact with a COVID-19 positive Pt in past 14-21 Days: No - Review of Systems Constitutional: No Symptoms Eyes: No Symptoms Ears, Nose, & Throat: No Symptoms Respiratory: No Symptoms Cardiac: No Symptoms Abdominal/Gastrointestinal: No Symptoms Genitourinary Symptoms: No Symptoms Musculoskeletal: No Symptoms Skin: No Symptoms Neurological: No Symptoms Psychological: No Symptoms Endocrine: No Symptoms Hematologic/Lymphatic: No Symptoms Immunological/Allergic: No Symptoms - Past Medical History Pertinent Past Medical History: No Neurological History: No Pertinent History ENT History: No Pertinent History Cardiac History: Other Respiratory History: No Pertinent History Endocrine Medical History: No Pertinent History Musculoskeletal History: No Pertinent History GI Medical History: No Pertinent History History: No Pertinent History Psycho-Social History: No Pertinent History Male Reproductive Disorders: No Pertinent History Other Medical History: tendonitis rt arm. pericarditis - Past Surgical History Past Surgical History: Yes Neuro Surgical History: No Pertinent History Cardiac: No Pertinent History Respiratory: No Pertinent History Gastrointestinal: No Pertinent History Genitourinary: No Pertinent History Musculoskeletal: Amputation Male Surgical History: No Pertinent History Other Surgical History: left fifth finger amputation at [facility], [facility] - Social History Smoking Status: Current every day smoker How long have you smoked: 30 YRS Exposure to second hand smoke: Yes Drug Use: none Patient Lives Alone: No Significant Family History: no pertinent family hx - Nursing Vital Signs Nursing Vital Signs: Initial Vital Signs Temperature 98.0 F 10/26/19 11:23 Pulse Rate 80 10/26/19 11:23 Respiratory Rate 18 10/26/19 11:23 Blood Pressure 177/104 10/26/19 11:23 O2 Sat by Pulse Oximetry 100 10/26/19 11:23 - Physical Exam General Appearance: no apparent distress Eye Exam: PERRL/EOMI, eyes nml inspection Ears, Nose, Throat Exam: normal ENT inspection, TMs normal, pharynx normal, moist mucous membranes Neck Exam: normal inspection, non-tender, supple, full range of motion, No meningismus, No Brudzinski, No Kernig's, No carotid bruit Respiratory Exam: normal breath sounds, lungs clear, airway intact Cardiovascular Exam: regular rate/rhythm, normal heart sounds, normal peripheral pulses, No murmur Gastrointestinal/Abdomen Exam: soft, normal bowel sounds, No tenderness Back Exam: normal inspection, normal range of motion, No CVA tenderness Extremity Exam: normal inspection, normal range of motion Neurologic Exam: alert, oriented x 3, cooperative, 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 He is supposed to see his PCP on . Pt advised to thoroughly review his hypertensive meds with his PCP. He is instructed to return to ER for chest pain/focal weakness/AYALA. Counseled pt/family regarding: need for follow-up - Departure Departure Disposition: Home Clinical Impression: Hypertension Condition: Stable Critical Care Time: No Referrals: GEOVANY LUX [Primary Care Provider] - Instructions: High Blood Pressure in Adults, High Blood Pressure (DC) Additional Instructions: Follow up with your family MD on Keep patch on for one week or as direcrted by your doctor on Return to ER for focal weakness/chest pain/bad headaches/shortness of breath/heart rate less than 55
[2019-10-26] MEDS: Catapres-TTS 1 PATCH TOP STA (12:01)
[2019-10-26 12:04] VITALS: BP 142/94; PULSE 92
== END 2019-10-26 12:10 | disposition home or self-care (01) ==
LOC: ED 11:09
DX: I10 Essential (primary) hypertension (principal)
CPT/HCPCS: 99283; A9270-GY

== ENCOUNTER 2019-11-22 15:16 | Emergency (ER) | payer OTHER ==
--- NOTE | 2019-11-22 15:23 | ERPHSYRPT ---
- History of Present Illness Time Seen by Provider: 11/22/19 15:23 Source: patient, police Exam Limitations: no limitations Physician History: Is a 54-year-old gentleman who has a history of hypertension and chronic back problems who presents to the emergency department escorted by police because of suicidal ideation with a threat of hanging himself. The patient and his spouse are having difficulties. The patient called [facility] and made that statement. Patient states his mind is not right. Timing/Duration: today Severity of Symptoms-Max: mild Severity of Symptoms-Current: mild Context related to: spouse Suicidal thoughts: specific plan (Hanging himself) Associated Symptoms: suicidal ideation Previous symptoms: no prior history Allergies/Adverse Reactions: Penicillins Allergy (Mild, Verified 11/22/19 15:51) Home Medications: Aspirin [Aspirin EC] 81 mg PO DAILY 09/02/19 [History] Baclofen 10 mg PO HS 09/02/19 [History] Cyanocobalamin (Vitamin B-12) [B-12] 5,000 mcg PO DAILY 09/02/19 [History] Gabapentin 600 mg PO DAILY 09/02/19 [History] Metoprolol Succinate 25 mg PO DAILY 09/02/19 [History] Sertraline HCl 50 mg PO DAILY 09/02/19 [History] Trazodone HCl 50 mg [Desyrel 50 mg] 50 mg PO HS 09/02/19 [History] Spironolactone 25 mg PO DAILY 10/26/19 [History] Lorazepam 0.5 mg [Ativan 0.5 MG] 0.5 mg PO BID 11/22/19 [History] Hx Tetanus, Diphtheria Vaccination/Date Given: Yes Hx Influenza Vaccination/Date Given: No Hx Pneumococcal Vaccination/Date Given: No Travel Risk - International Travel Have you traveled outside of the country in past 3 weeks: No - Coronavirus Screening Are you exhibiting any of the following symptoms?: No Close contact with a COVID-19 positive Pt in past 14-21 Days: No - Past Medical History Pertinent Past Medical History: No Neurological History: No Pertinent History ENT History: No Pertinent History Cardiac History: Other Respiratory History: No Pertinent History Endocrine Medical History: No Pertinent History Musculoskeletal History: No Pertinent History GI Medical History: No Pertinent History History: No Pertinent History Psycho-Social History: No Pertinent History Male Reproductive Disorders: No Pertinent History Other Medical History: tendonitis rt arm. pericarditis - Past Surgical History Past Surgical History: Yes Neuro Surgical History: No Pertinent History Cardiac: No Pertinent History Respiratory: No Pertinent History Gastrointestinal: No Pertinent History Genitourinary: No Pertinent History Musculoskeletal: Amputation Male Surgical History: No Pertinent History Other Surgical History: left fifth finger amputation at [facility] - Social History Smoking Status: Current every day smoker How long have you smoked: 25 years Exposure to second hand smoke: Yes Drug Use: none Patient Lives Alone: No Significant Family History: no pertinent family hx - Review of Systems Constitutional: No Symptoms Eyes: No Symptoms Ears, Nose, & Throat: No Symptoms Respiratory: No Symptoms Cardiac: No Symptoms Abdominal/Gastrointestinal: No Symptoms Genitourinary Symptoms: No Symptoms Musculoskeletal: No Symptoms Skin: No Symptoms Neurological: No Symptoms Psychological: Suicidal Ideations Endocrine: No Symptoms Hematologic/Lymphatic: No Symptoms Immunological/Allergic: No Symptoms All Other Systems: Reviewed and Negative - Nursing Vital Signs Nursing Vital Signs: Initial Vital Signs Temperature 98.6 F 11/22/19 15:50 Pulse Rate 116 H 11/22/19 15:50 Blood Pressure 134/100 11/22/19 15:50 O2 Sat by Pulse Oximetry 98 11/22/19 15:50 Pain Scale Pain Intensity 0 - Physical Exam General Appearance: no apparent distress, alert, anxiety Eyes, Ears, Nose, Throat Exam: normal ENT inspection, moist mucous membranes Neck Exam: normal inspection, non-tender, supple, full range of motion Respiratory Exam: normal breath sounds, lungs clear, airway intact, No chest tenderness, No respiratory distress Cardiovascular Exam: regular rate/rhythm, normal heart sounds, normal peripheral pulses Gastrointestinal/Abdominal Exam: soft, normal bowel sounds, No tenderness Extremities Exam: normal inspection, normal range of motion, No evidence of injury Current Suicidality: has suicide plan (Hanging himself) Neurological Exam: alert, normal mood/affect, calm, mandrel cleaner II-XII nml as tested, oriented x 3 Appearance: appropriate appearance, appropriate insight Behavior/Eye Contact/Speech: alert & cooperative, avoids eye contact Thoughts/Hallucinations: no apparent hallucination Skin Exam: normal color, warm, dry SpO2 Interpretation: normal O2 Delivery: Room Air Ordered Tests: Active Orders 24 hr Category Date Time Status Clean Catch Urine Specimen STAT Care 08/31/20 15:23 Active EKG-ER Only STAT Care 11/22/19 15:23 Active Psychiatric Consult STAT Cons 11/22/19 15:24 Active ACETAMINOPHEN Stat Lab 11/22/19 15:40 Completed Alcohol [ETHYL ALCOHOL] Stat Lab 11/22/19 20:05 Completed CBC W DIFF Stat Lab 11/22/19 15:40 Completed CMP Stat Lab 11/22/19 15:40 Completed ETHYL ALCOHOL Stat Lab 11/22/19 15:40 Completed SALICYLATE Stat Lab 11/22/19 15:40 Completed UA W/RFX UR CULTURE Stat Lab 11/22/19 15:30 Completed Urine Triage Profile Stat Lab 11/22/19 15:30 Completed Lab/Rad Data: Laboratory Result Diagrams 11/22/19 15:40 11/22/19 15:40 Laboratory Results 11/22/19 11/22/19 11/22/19 Range/Units 20:05 15:40 15:40 WBC 6.3 (4.0-10.5) K/mm3 RBC 4.40 (4.1-5.6) M/mm3 Hgb 14.9 (12.5-18.0) gm/dl Hct 42.8 (42-50) % MCV 97.3 (78-100) fl MCH 33.9 H (26-32) pg MCHC 34.8 (32-36) g/dl RDW 13.2 (11.5-14.0) % Plt Count 226 (150-450) K/mm3 MPV 8.4 (7.5-11.0) fl Gran % 64.8 (36.0-66.0) % Eos # (Auto) 0.05 (0-0.5) Absolute Lymphs (auto) 1.32 (1.0-4.6) Absolute Monos (auto) 0.82 (0.0-1.3) Lymphocytes % 21.1 L (24.0-44.0) % Monocytes % 13.1 H (0.0-12.0) % Eosinophils % 0.8 (0.00-5.0) % Basophils % 0.2 (0.0-0.4) % Absolute Granulocytes 4.06 (1.4-6.9) Basophils # 0.01 (0-0.4) Sodium 135 L (137-145) mmol/L Potassium 3.7 (3.5-5.1) mmol/L Chloride 100 (98-107) mmol/L Carbon Dioxide 20 L (22-30) mmol/L Anion Gap 18.0 H (5-15) MEQ/L BUN 3 L (9-20) mg/dL Creatinine 0.56 L (0.66-1.25) mg/dL Estimated GFR > 60.0 ML/MIN Glucose 107 H (74-106) mg/dL Calcium 9.3 (8.4-10.2) mg/dL Total Bilirubin 0.40 (0.2-1.3) mg/dL AST 64 H (17-59) U/L ALT 46 (0-50) U/L Alkaline Phosphatase 98 (38-126) U/L Serum Total Protein 8.7 H (6.3-8.2) g/dL Albumin 4.9 (3.5-5.0) g/dL Urine Color (YELLOW) Urine Appearance (CLEAR) Urine pH (5-6) Ur Specific [place] (1.005-1.025) Urine Protein (Negative) Urine Ketones (NEGATIVE) Urine Blood (0-5) Cristino/ul Urine Nitrite (NEGATIVE) Urine Bilirubin (NEGATIVE) Urine Urobilinogen (0-1) mg/dL Ur Leukocyte Esterase (NEGATIVE) Urine WBC (Auto) (0-5) /HPF Urine RBC (Auto) (0-2) /HPF U Epithel Cells (Auto) (FEW) /HPF Urine Bacteria (Auto) (NEGATIVE) /HPF Urine Mucus (Auto) (NEGATIVE) /HPF Urine Culture Reflexed (NO) Urine Glucose (NEGATIVE) mg/dL Salicylates 1.1 L (2-20) mg/dL Urine Opiates Level (NEGATIVE) Ur Methadone (NEGATIVE) Acetaminophen < 10 L (10-30) ug/ml Urine Barbiturates (NEGATIVE) Ur Phencyclidine (PCP) (NEGATIVE) Urine Amphetamine (NEGATIVE) U Benzodiazepine Level (NEGATIVE) Urine Cocaine (NEGATIVE) Urine Marijuana (THC) (NEGATIVE) Ethyl Alcohol 167 H 259 H (0-10) mg/dL 11/22/19 11/22/19 Range/Units 15:30 15:30 WBC (4.0-10.5) K/mm3 RBC (4.1-5.6) M/mm3 Hgb (12.5-18.0) gm/dl Hct (42-50) % MCV (78-100) fl MCH (26-32) pg MCHC (32-36) g/dl RDW (11.5-14.0) % Plt Count (150-450) K/mm3 MPV (7.5-11.0) fl Gran % (36.0-66.0) % Eos # (Auto) (0-0.5) Absolute Lymphs (auto) (1.0-4.6) Absolute Monos (auto) (0.0-1.3) Lymphocytes % (24.0-44.0) % Monocytes % (0.0-12.0) % Eosinophils % (0.00-5.0) % Basophils % (0.0-0.4) % Absolute Granulocytes (1.4-6.9) Basophils # (0-0.4) Sodium (137-145) mmol/L Potassium (3.5-5.1) mmol/L Chloride (98-107) mmol/L Carbon Dioxide (22-30) mmol/L Anion Gap (5-15) MEQ/L BUN (9-20) mg/dL Creatinine (0.66-1.25) mg/dL Estimated GFR ML/MIN Glucose (74-106) mg/dL Calcium (8.4-10.2) mg/dL Total Bilirubin (0.2-1.3) mg/dL AST (17-59) U/L ALT (0-50) U/L Alkaline Phosphatase (38-126) U/L Serum Total Protein (6.3-8.2) g/dL Albumin (3.5-5.0) g/dL Urine Color STRAW (YELLOW) Urine Appearance CLEAR (CLEAR) Urine pH 6.0 (5-6) Ur Specific [place] 1.002 (1.005-1.025) Urine Protein NEGATIVE (Negative) Urine Ketones NEGATIVE (NEGATIVE) Urine Blood NEGATIVE (0-5) Cristino/ul Urine Nitrite NEGATIVE (NEGATIVE) Urine Bilirubin NEGATIVE (NEGATIVE) Urine Urobilinogen NEGATIVE (0-1) mg/dL Ur Leukocyte Esterase NEGATIVE (NEGATIVE) Urine WBC (Auto) NONE (0-5) /HPF Urine RBC (Auto) NONE (0-2) /HPF U Epithel Cells (Auto) NONE (FEW) /HPF Urine Bacteria (Auto) NONE (NEGATIVE) /HPF Urine Mucus (Auto) SLIGHT (NEGATIVE) /HPF Urine Culture Reflexed NO (NO) Urine Glucose NEGATIVE (NEGATIVE) mg/dL Salicylates (2-20) mg/dL Urine Opiates Level NEGATIVE (NEGATIVE) Ur Methadone NEGATIVE (NEGATIVE) Acetaminophen (10-30) ug/ml Urine Barbiturates NEGATIVE (NEGATIVE) Ur Phencyclidine (PCP) NEGATIVE (NEGATIVE) Urine Amphetamine NEGATIVE (NEGATIVE) U Benzodiazepine Level NEGATIVE (NEGATIVE) Urine Cocaine NEGATIVE (NEGATIVE) Urine Marijuana (THC) NEGATIVE (NEGATIVE) Ethyl Alcohol (0-10) mg/dL - Progress Progress Note: 11/22/19 17:23 Medical decision making: This patient eloped in the presence of the police here in the emergency department. They retrieved him. Patient will be placed on a 72-hour hold. 11/22/19 22:37 Patient is under emergency long term. Dr. Reina accepts the patient for transfer/admission. Counseled pt/family regarding: lab results, diagnosis - Departure Departure Disposition: Transfer Clinical Impression: Suicidal ideation Condition: Stable Critical Care Time: No Referrals: GEOVANY LUX [Primary Care Provider] -
[2019-11-22 15:47] LABS: Absolute Neutrophil Ct (ANC) 4.06 (1.4-6.9); BASOPHIL % 0.2 % (0.0-0.4); Basophil (Absolute #) 0.01 (0-0.4); Eosinophil % 0.8 % (0.00-5.0); Eosinophil (Absolute #) 0.05 (0-0.5); Hematocrit 42.8 % (42-50); Hemoglobin 14.9 gm/dl (12.5-18.0); Lymphocyte (Absolute #) 1.32 (1.0-4.6); Lymphocytes % 21.1 % (24.0-44.0); Mean Cell Volume 97.3 fl (78-100); Mean Corpuscular Hemoglobin 33.9 pg (26-32); Mean Corpuscular Hgb Concent. 34.8 g/dl (32-36); Mean Platelet Volume 8.4 fl (7.5-11.0); Monocyte (Absolute #) 0.82 (0.0-1.3); Monocytes % 13.1 % (0.0-12.0); Neutrophil % 64.8 % (36.0-66.0); Platelet Count 226 K/mm3 (150-450); Red Cell Distribution Width 13.2 % (11.5-14.0); White Blood Count 6.3 K/mm3 (4.0-10.5)
[2019-11-22 15:50] LABS: Appearance CLEAR (CLEAR); Bilirubin NEGATIVE (NEGATIVE); Blood NEGATIVE Ery/ul (0-5); Glucose NEGATIVE (NEGATIVE); Ketones NEGATIVE (NEGATIVE); Leukocyte Esterase NEGATIVE (NEGATIVE); Mucus SLIGHT /HPF (NEGATIVE); Nitrite NEGATIVE (NEGATIVE); Protein,Urine Dip NEGATIVE (Negative); Specific Gravity 1.002 (1.005-1.025); Urobilinogen NEGATIVE mg/dL (0-1)
[2019-11-22 15:59] LABS: ALBUMIN 4.9 g/dL (3.5-5.0); ALKALINE PHOSPHATASE 98 U/L (38-126); BLOOD UREA NITROGEN 3 mg/dL (9-20); CHLORIDE 100 mmol/L (98-107); Calcium 9.3 mg/dL (8.4-10.2); Carbon Dioxide 20 mmol/L (22-30); Creatinine 1 0.56 mg/dL (0.66-1.25); EST GLOMERULAR FILTRATION RATE > 60.0 ML/MIN; ETHYL ALCOHOL 259 mg/dL (0-10); Glucose 107 mg/dL (74-106); Potassium 3.7 mmol/L (3.5-5.1); SALICYLATE 1.1 mg/dL (2-20); SGOT/AST 64 U/L (17-59); SGPT/ALT 46 U/L (0-50); SODIUM 135 mmol/L (137-145); Total Protein 8.7 g/dL (6.3-8.2)
[2019-11-22 16:01] LABS: ACETAMINOPHEN < 10 ug/ml (10-30)
[2019-11-22 16:10] LABS: Amphetamine,Urine NEGATIVE (NEGATIVE); Barbiturate,Urine NEGATIVE (NEGATIVE); Benzodiazepine,Urine NEGATIVE (NEGATIVE); Cocaine,Urine NEGATIVE (NEGATIVE); Methadone,Urine NEGATIVE (NEGATIVE); Opiate,Urine NEGATIVE (NEGATIVE); PCP,Urine NEGATIVE (NEGATIVE); THC,Urine NEGATIVE (NEGATIVE)
[2019-11-23 00:17] VITALS: BP 158/98
[2019-11-23] MEDS ORDERED: Toprol-Xl 25MG Tablets PO ONE (00:24)
[2019-11-23] MEDS ORDERED: Toprol-Xl 25MG Tablets ONE (00:35)
[2019-11-23 01:41] VITALS: PULSE 99; O2SAT 98
== END 2019-11-23 02:00 | disposition short-term general hospital (02) ==
LOC: ED 15:16
DX: R45.851 Suicidal ideations (principal); I10 Essential (primary) hypertension
CPT/HCPCS: 36415; 80053; 80307; 81001; 85025; 93005; 99285; G0480; A9270-GY

== ENCOUNTER 2020-11-13 01:20 | Emergency (ER) | payer OTHER ==
[2020-11-13 01:25] VITALS: BP 135/87; PULSE 100; O2SAT 98
--- NOTE | 2020-11-13 02:21 | ERPHSYRPT ---
- History of Present Illness Time Seen by Provider: 11/13/20 01:57 Historian: patient Exam Limitations: no limitations Patient Subjective Stated Complaint: Patient states " My stomach has been hurting since yesterday but the pain got worse after I ate French this evening to the point I was scared to go to sleep." Triage Nursing Assessment: Patient arrived to ED via Ambulance. Patient A/O times 4. Patient able to follow instructions without difficulty. Patient able to ambulate without difficulty with steady gait. Patient states the left side of ABD has been hurting since yesterday but after eating French it became worse. Patient stated he tried to go home and go to sleep but the pain continued to get worse and then he was scared to go to sleep so he called 911. + BS times 4 quads. ABD soft, flat, non-distended. Patient complains of tenderness when RN palpitated upper and lower left side of ABD. Patient denies any pain or burning upon urination. Patient stated he was nauseated yesterday and vomited several times of undigested food but no further vomiting today. Patient stated he has had about 5-6 alcoholic drinks throughout the day. RN can smell alcohol on breath during assessment. Patient denies any chest pain or SOB. Patient with no edema present. + Radial and pedal pulses noted bilateral. Patient denies ABD pain radiates into back or bilateral flanks. Patient states pain is localized on left side of ABD. Patient denies any pain or trauma to ABD. Patient denies any loose stools. Physician History: 55 years old male with history of alcohol abuse presented in the ER by EMS with chief complaint of left-sided abdominal pain since yesterday. Patient report having multiple episodes of nonprojectile, nonbilious vomiting yesterday but no vomiting since morning and did eat some French food and his pain got worse. Patient reports earlier it was 7/10 intensity and currently 34/10 without any known significant aggravating or relieving factors. Denies any nausea or vomiting today. Did have 6-8 beers in all day last drink was almost 4 hours ago. Denies any urinary symptoms. No fever or chills reported. Patient is anxious and does not want anything to be done as he is scared of needles. Patient states "I am feeling much better and do not think I need to be in here and I would like to go home". Patient is not confused or altered at all although breath smells of alcohol. Timing/Duration: yesterday, intermittent, gradual onset, worse Activities at Onset: rest Quality: burning, cramping, dullness Abdominal Pain Onset Location: LUQ, LLQ Pain Radiation: no radiation Severity of Pain-Max: moderate Severity of Pain-Current: mild Modifying Factors: Worsens With: eating Associated Symptoms: heartburn, nausea, vomiting Previous symptoms: same symptoms as today Allergies/Adverse Reactions: Penicillins Allergy (Mild, Verified 11/13/20 01:26) Home Medications: No Reportable Medications [No Reported Medications] 11/13/20 [History] Hx Tetanus, Diphtheria Vaccination/Date Given: Yes Hx Influenza Vaccination/Date Given: No Hx Pneumococcal Vaccination/Date Given: No Travel Risk - International Travel Have you traveled outside of the country in past 3 weeks: No - Coronavirus Screening Are you exhibiting any of the following symptoms?: No Close contact with a COVID-19 positive Pt in past 14-21 Days: No - Vaccine Status Have you recieved a Covid-19 vaccination: Yes 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: [employer] - Review of Systems Constitutional: No Symptoms Eyes: No Symptoms Ears, Nose, & Throat: No Symptoms Respiratory: No Symptoms Cardiac: No Symptoms Abdominal/Gastrointestinal: Abdominal Pain, Nausea, Vomiting Genitourinary Symptoms: No Symptoms Musculoskeletal: No Symptoms Skin: No Symptoms Neurological: No Symptoms Psychological: Alcohol Abuse, Anxiety Endocrine: No Symptoms Hematologic/Lymphatic: No Symptoms Immunological/Allergic: No Symptoms - Past Medical History Pertinent Past Medical History: Yes Neurological History: No Pertinent History ENT History: No Pertinent History Cardiac History: Hypertension Respiratory History: No Pertinent History Endocrine Medical History: No Pertinent History Musculoskeletal History: No Pertinent History GI Medical History: No Pertinent History History: No Pertinent History Psycho-Social History: No Pertinent History Male Reproductive Disorders: No Pertinent History Other Medical History: tendonitis rt arm. pericarditis - Past Surgical History Past Surgical History: Yes Neuro Surgical History: No Pertinent History Cardiac: No Pertinent History Respiratory: No Pertinent History Gastrointestinal: No Pertinent History Genitourinary: No Pertinent History Musculoskeletal: Amputation Male Surgical History: No Pertinent History Other Surgical History: left fifth finger amputation at [facility] - Social History Smoking Status: Current every day smoker How long have you smoked: 15 years Exposure to second hand smoke: Yes Drug Use: none Patient Lives Alone: Yes Significant Family History: no pertinent family hx - Nursing Vital Signs Nursing Vital Signs: Initial Vital Signs Temperature 98.2 F 11/13/20 01:21 Pulse Rate 100 H 11/13/20 01:21 Respiratory Rate 20 11/13/20 01:21 Blood Pressure 135/87 11/13/20 01:21 O2 Sat by Pulse Oximetry 98 11/13/20 01:21 Pain Scale Pain Intensity 6 - Physical Exam General Appearance: no apparent distress, alert Eye Exam: PERRL/EOMI, eyes nml inspection Ears, Nose, Throat Exam: normal ENT inspection, pharynx normal Neck Exam: normal inspection, supple, full range of motion Respiratory Exam: normal breath sounds, lungs clear Cardiovascular Exam: regular rate/rhythm, normal heart sounds Gastrointestinal/Abdomen Exam: soft, normal bowel sounds, tenderness (Minimal tenderness in the left flank area/left lower quadrant.) Back Exam: normal inspection, normal range of motion Extremity Exam: normal inspection, normal range of motion, pelvis stable Neurologic Exam: alert, oriented x 3, cooperative Skin Exam: normal color SpO2 Interpretation: normal SpO2: 98 O2 Delivery: Room Air - Course EKG Interpreted by Me: RATE (92), Sinus Rhythm, NORMAL AXIS, NORMAL INTERVALS, Non-specific ST Changes - Progress Progress: unchanged Progress Note: Patient did not want anything to be done. Discussed with patient about risk of leaving without any work-up and he might have some serious pathology going on but he reports "I will come back if I have worsening in the right now I am feeling much better". Patient is not confused or altered. He is scared of needles and cannot wait for any imaging. He walked out of the ER in stable condition. Counseled pt/family regarding: diagnosis, need for follow-up - Departure Departure Disposition: AMA Clinical Impression: Left sided abdominal pain Condition: Stable Critical Care Time: No Referrals: GEOVANY LUX [Primary Care Provider] - Instructions: Acute Abdomen (Belly Pain), Adult (DC)
== END 2020-11-13 02:16 | disposition left against medical advice (07) ==
LOC: ED 01:20
DX: R10.9 Unspecified abdominal pain (principal)
CPT/HCPCS: 99283

== ENCOUNTER 2021-04-30 06:14 | Emergency (ER) | payer OTHER ==
--- NOTE | 2021-04-30 06:39 | ERPHSYRPT ---
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 He takes BP med in form of a patch. He feels tight spasm in left pectoralis. he has reproducible pain in the left chest and left upper abdomen to palpation in these areas. chest is clear. Ht is regular without murmur . abdomen is very tender with guarding. He reports a hx of pericarditis 4 years ago but no other heart problems. As pain is not typical for cardiac and there could be internal bleeding as a source we are holding ASA and nitro at this time. Timing/Duration: today Activities at Onset: other (after reaching to tile picker object ) Quality: sharpness, stabbing Location: other (left chest and abdomen) Chest Pain Radiation: abdomen Severity of Pain-Max: moderate Severity of Pain-Current: moderate Modifying Factors: Improves With: breathing, coughing, palpation Associated Symptoms: abdominal pain Nitro Today/Relief: no nitro taken today (could be internal chest or abd condition) Aspirin Treatment Today: no aspirin today (not typical cardiac pain - could be internal bleeding) Allergies/Adverse Reactions: Penicillins Allergy (Mild, Verified 04/30/21 07:00) Home Medications: Bp Patch 1 patch TD WEEKLY 04/30/21 [History] Lorazepam 0.5 mg [Ativan 0.5 MG] 0.5 mg PO BID 04/30/21 [History] Metoprolol Succinate 25 mg Xl* [Toprol-Xl 25MG Tablets] 25 mg PO BID 04/30/21 [History] Sertraline HCl 50 mg [Zoloft 50 mg Tablet] 50 mg PO DAILY 04/30/21 [History] Hx Tetanus, Diphtheria Vaccination/Date Given: Yes Hx Influenza Vaccination/Date Given: No Hx Pneumococcal Vaccination/Date Given: No Travel Risk - Vaccine Status Have you recieved a Covid-19 vaccination: Yes [employer]: [employer] - Review of Systems Constitutional: No Fever, No Chills Eyes: No Symptoms Ears, Nose, & Throat: No Symptoms Respiratory: No Cough, No Dyspnea Cardiac: Chest Pain, No Edema, No Syncope Abdominal/Gastrointestinal: Abdominal Pain, No Nausea, No Vomiting, No Diarrhea Genitourinary Symptoms: No Dysuria Musculoskeletal: No Back Pain, No Neck Pain Skin: No Rash Neurological: No Dizziness, No Focal Weakness, No Sensory Changes Psychological: No Symptoms Endocrine: No Symptoms All Other Systems: Reviewed and Negative - Past Medical History Pertinent Past Medical History: Yes Neurological History: No Pertinent History ENT History: No Pertinent History Cardiac History: Hypertension Respiratory History: No Pertinent History Endocrine Medical History: No Pertinent History Musculoskeletal History: No Pertinent History GI Medical History: No Pertinent History History: No Pertinent History Psycho-Social History: No Pertinent History Male Reproductive Disorders: No Pertinent History Other Medical History: tendonitis rt arm. pericarditis - Past Surgical History Past Surgical History: Yes Neuro Surgical History: No Pertinent History Cardiac: No Pertinent History Respiratory: No Pertinent History Gastrointestinal: No Pertinent History Genitourinary: No Pertinent History Musculoskeletal: Amputation Male Surgical History: No Pertinent History Other Surgical History: left fifth finger amputation at [facility] - Social History Smoking Status: Current every day smoker How long have you smoked: 15 years Exposure to second hand smoke: Yes Drug Use: none Patient Lives Alone: Yes Significant Family History: no pertinent family hx - Physical Exam General Appearance: no apparent distress, alert Eye Exam: PERRL/EOMI, eyes nml inspection Ears, Nose, Throat Exam: normal ENT inspection, moist mucous membranes Neck Exam: normal inspection, non-tender, supple, full range of motion Respiratory Exam: normal breath sounds, chest tenderness, lungs clear, airway intact, No respiratory distress Cardiovascular Exam: regular rate/rhythm, normal heart sounds Gastrointestinal/Abdomen Exam: soft, tenderness, guarding, No mass Rectal Exam: deferred Back Exam: normal inspection, No CVA tenderness, No vertebral tenderness Extremity Exam: normal inspection, normal range of motion Neurologic Exam: alert, oriented x 3, cooperative, normal mood/affect, sensation nml, No motor deficits Skin Exam: normal color, warm, dry SpO2 Interpretation: normal SpO2: 97 O2 Delivery: Room Air - Course Nursing assessment & vital signs reviewed: Yes EKG Interpreted by Me: Sinus Rhythm, ST Elev (in v2 slight ), Non-specific ST Changes - Progress Progress: improved, re-examined Air Movement: good Progress Note: 04/30/21 06:49 pt turned over to Dr. Dumont at change of shift for final interpretation of results and treatment and disposition, after introduction and discussion of pending labs and imaging. Blood Culture(s) Obtained: No Antibiotics given: No Counseled pt/family regarding: lab results, diagnosis, need for follow-up, rad results - Departure Clinical Impression: Renal cyst, Muscle strain of chest wall Condition: Stable Referrals: GEOVANY LUX [Primary Care Provider] - Follow up/PCP as directed Instructions: Chest Pain That Is Not Caused by the Heart (DC) Additional Instructions: Discharge/Care Plan NEIL TUCKER was seen on 04/30/21 in the Emergency Room. The patient was counseled regarding Diagnosis,Lab results, Imaging studies, need for follow up and when to return to the Emergency Room. Prescriptions given: Discharge Note I have spoken with the patient and/or caregivers. I have explained the patient's condition, diagnosis and treatment plan based on the information available to me at this time. I have answered the patient's and/or caregiver's questions and addressed any concerns. The patient and/or caregivers have as good understanding of the patient's diagnosis, condition and treatment plan as can be expected at this point. The vital signs have been stable. The patient's condition is stable and appropriate for discharge from the emergency department. The patient will pursue further outpatient evaluation with the primary care physician or other designated or consulting physician as outlined in the discharge instructions. The patient and/or caregivers are agreeable to this plan of care and follow-up instructions have been explained in detail. The patient and/or caregivers have received these instruction. The patient/and or caregivers are aware that any significant change in condition or worsening of symptoms should prompt an immediate return to this or the closest emergency department or call 911. <KRISHNA DUMONT - Last Filed: 04/30/21 12:02> - Nursing Vital Signs Nursing Vital Signs: Initial Vital Signs Temperature 98.7 F 04/30/21 06:17 Pulse Rate 80 04/30/21 06:17 Respiratory Rate 16 04/30/21 06:17 Blood Pressure 129/90 04/30/21 06:17 O2 Sat by Pulse Oximetry 97 04/30/21 06:17 Pain Scale Pain Intensity 4 - Radiology Exams Chest X-ray Interpretation: Teleradiologist Report (Portable chest again demonstrates normal heart and lungs. Bony thorax intact with mild degenerative changes and mild dextroscoliosis. No new acute findings.) - CT Exams Abdomen/Pelvis CT Interpretation: Tele-radiologist Report (Small left renal cyst. Remaining CT abdomen pelvis without contrast is negative.) Ordered Tests: Active Orders 24 hr Category Date Time Status EKG-ER Only STAT Care 04/30/21 06:44 Completed IV Insertion STAT Care 04/30/21 06:44 Completed ABDOMEN AND PELVIS W/0 CONTRAS [CT] Stat Exams 04/30/21 06:45 Completed CHEST 1 VIEW (PORTABLE) Stat Exams 04/30/21 06:45 Completed AMYLASE Stat Lab 04/30/21 06:45 Completed CBC W DIFF Stat Lab 04/30/21 06:45 Completed CMP Stat Lab 04/30/21 06:45 Completed D-DIMER QUANTITATIVE Stat Lab 04/30/21 06:45 Completed LIPASE Stat Lab 04/30/21 06:45 Completed Lactic Acid Stat Lab 04/30/21 06:45 Completed TROPONIN Q3H Lab 04/30/21 06:45 Completed TROPONIN Q3H Lab 04/30/21 10:00 Completed TROPONIN Q3H Lab 04/30/21 12:45 Ordered TROPONIN Q3H Lab 04/30/21 15:45 Ordered TROPONIN Q3H Lab 04/30/21 18:45 Ordered UA W/RFX UR CULTURE Stat Lab 04/30/21 06:59 Completed Medication Summary Discontinued Medications Generic Name Dose Route Start Last Admin Trade Name Freq PRN Reason Stop Dose Admin Famotidine 20 mg 04/30/21 06:44 04/30/21 07:25 Famotidine 20 Mg/1 Vial IV 04/30/21 06:45 20 mg STAT ONE Administration Famotidine Confirm 04/30/21 07:20 Famotidine 20 Mg/1 Vial Administered 04/30/21 07:21 Dose 20 mg IV .STK-MED ONE Sodium Chloride 1,000 mls @ 100 mls/hr 04/30/21 06:45 04/30/21 07:26 Sodium Chloride 0.9% 1000 Ml IV 05/30/21 06:44 100 mls/hr .Q10H VERA Administration Sodium Chloride Confirm 04/30/21 07:21 Sodium Chloride 0.9% 1000 Ml Administered 04/30/21 07:22 Dose 1,000 mls @ ud .ROUTE .STK-MED ONE Ketorolac Tromethamine 30 mg 04/30/21 06:44 04/30/21 07:24 Ketorolac Tromethamine 30 Mg/Ml Inj IV 04/30/21 06:45 30 mg STAT ONE Administration Ketorolac Tromethamine Confirm 04/30/21 07:20 Ketorolac Tromethamine 30 Mg/Ml Inj Administered 04/30/21 07:21 Dose 30 mg .ROUTE .STK-MED ONE Orphenadrine Citrate 60 mg 04/30/21 06:47 04/30/21 07:26 Orphenadrine Citrate 60 Mg/2 Ml Amp IM 04/30/21 06:48 60 mg STAT ONE Administration Orphenadrine Citrate Confirm 04/30/21 07:21 Orphenadrine Citrate 60 Mg/2 Ml Amp Administered 04/30/21 07:22 Dose 60 mg .ROUTE .STK-MED ONE Pantoprazole Sodium 40 mg 04/30/21 06:44 04/30/21 07:23 Pantoprazole 40 Mg Vial IV 04/30/21 06:45 40 mg STAT ONE Administration Pantoprazole Sodium Confirm 04/30/21 07:21 Pantoprazole 40 Mg Vial Administered 04/30/21 07:22 Dose 40 mg IV .STK-MED ONE Lab/Rad Data: Laboratory Result Diagrams 04/30/21 06:45 04/30/21 06:45 Laboratory Results 04/30/21 04/30/21 04/30/21 Range/Units 10:00 06:59 06:45 WBC (4.0-10.5) K/mm3 RBC (4.1-5.6) M/mm3 Hgb (12.5-18.0) gm/dl Hct (42-50) % MCV (78-100) fl MCH (26-32) pg MCHC (32-36) g/dl RDW (11.5-14.0) % Plt Count (150-450) K/mm3 MPV (7.5-11.0) fl Gran % (36.0-66.0) % Eos # (Auto) (0-0.5) Absolute Lymphs (auto) (1.0-4.6) Absolute Monos (auto) (0.0-1.3) Lymphocytes % (24.0-44.0) % Monocytes % (0.0-12.0) % Eosinophils % (0.00-5.0) % Basophils % (0.0-0.4) % Absolute Granulocytes (1.4-6.9) Basophils # (0-0.4) D-Dimer 400 (215-500) ng/mL Sodium (137-145) mmol/L Potassium (3.5-5.1) mmol/L Chloride (98-107) mmol/L Carbon Dioxide (22-30) mmol/L Anion Gap (5-15) MEQ/L BUN (9-20) mg/dL Creatinine (0.66-1.25) mg/dL Estimated GFR ML/MIN Glucose (74-106) mg/dL Lactic Acid (0.4-2.0) Calcium (8.4-10.2) mg/dL Total Bilirubin (0.2-1.3) mg/dL AST (17-59) U/L ALT (0-50) U/L Alkaline Phosphatase (38-126) U/L Troponin I < 0.012 (0.000-0.034) ng/mL Serum Total Protein (6.3-8.2) g/dL Albumin (3.5-5.0) g/dL Amylase (30-110) U/L Lipase (23-300) U/L Urine Color STRAW (YELLOW) Urine Appearance CLEAR (CLEAR) Urine pH 5.0 (5-6) Ur Specific [place] 1.002 (1.005-1.025) Urine Protein NEGATIVE (Negative) Urine Ketones NEGATIVE (NEGATIVE) Urine Blood NEGATIVE (0-5) Cristino/ul Urine Nitrite NEGATIVE (NEGATIVE) Urine Bilirubin NEGATIVE (NEGATIVE) Urine Urobilinogen NEGATIVE (0-1) mg/dL Ur Leukocyte Esterase NEGATIVE (NEGATIVE) Urine WBC (Auto) NONE (0-5) /HPF Urine RBC (Auto) NONE SEEN (0-2) /HPF U Epithel Cells (Auto) NONE (FEW) /HPF Urine Bacteria (Auto) NONE SEEN (NEGATIVE) /HPF Urine Culture Reflexed NO (NO) Urine Glucose NEGATIVE (NEGATIVE) mg/dL 04/30/21 04/30/21 04/30/21 Range/Units 06:45 06:45 06:45 WBC (4.0-10.5) K/mm3 RBC (4.1-5.6) M/mm3 Hgb (12.5-18.0) gm/dl Hct (42-50) % MCV (78-100) fl MCH (26-32) pg MCHC (32-36) g/dl RDW (11.5-14.0) % Plt Count (150-450) K/mm3 MPV (7.5-11.0) fl Gran % (36.0-66.0) % Eos # (Auto) (0-0.5) Absolute Lymphs (auto) (1.0-4.6) Absolute Monos (auto) (0.0-1.3) Lymphocytes % (24.0-44.0) % Monocytes % (0.0-12.0) % Eosinophils % (0.00-5.0) % Basophils % (0.0-0.4) % Absolute Granulocytes (1.4-6.9) Basophils # (0-0.4) D-Dimer (215-500) ng/mL Sodium 144 (137-145) mmol/L Potassium 3.9 (3.5-5.1) mmol/L Chloride 108 H (98-107) mmol/L Carbon Dioxide 23 (22-30) mmol/L Anion Gap 17.6 H (5-15) MEQ/L BUN 3 L (9-20) mg/dL Creatinine 0.58 L (0.66-1.25) mg/dL Estimated GFR > 60.0 ML/MIN Glucose 94 (74-106) mg/dL Lactic Acid 1.9 (0.4-2.0) Calcium 9.2 (8.4-10.2) mg/dL Total Bilirubin 0.30 (0.2-1.3) mg/dL AST 55 (17-59) U/L ALT 41 (0-50) U/L Alkaline Phosphatase 62 (38-126) U/L Troponin I < 0.012 (0.000-0.034) ng/mL Serum Total Protein 7.3 (6.3-8.2) g/dL Albumin 4.4 (3.5-5.0) g/dL Amylase 32 (30-110) U/L Lipase 254 (23-300) U/L Urine Color (YELLOW) Urine Appearance (CLEAR) Urine pH (5-6) Ur Specific [place] (1.005-1.025) Urine Protein (Negative) Urine Ketones (NEGATIVE) Urine Blood (0-5) Cristino/ul Urine Nitrite (NEGATIVE) Urine Bilirubin (NEGATIVE) Urine Urobilinogen (0-1) mg/dL Ur Leukocyte Esterase (NEGATIVE) Urine WBC (Auto) (0-5) /HPF Urine RBC (Auto) (0-2) /HPF U Epithel Cells (Auto) (FEW) /HPF Urine Bacteria (Auto) (NEGATIVE) /HPF Urine Culture Reflexed (NO) Urine Glucose (NEGATIVE) mg/dL 04/30/21 Range/Units 06:45 WBC 5.8 (4.0-10.5) K/mm3 RBC 4.35 (4.1-5.6) M/mm3 Hgb 14.4 (12.5-18.0) gm/dl Hct 44.7 (42-50) % MCV 102.8 H (78-100) fl MCH 33.1 H (26-32) pg MCHC 32.2 (32-36) g/dl RDW 13.0 (11.5-14.0) % Plt Count 317 (150-450) K/mm3 MPV 8.5 (7.5-11.0) fl Gran % 58.8 (36.0-66.0) % Eos # (Auto) 0.26 (0-0.5) Absolute Lymphs (auto) 1.52 (1.0-4.6) Absolute Monos (auto) 0.59 (0.0-1.3) Lymphocytes % 26.2 (24.0-44.0) % Monocytes % 10.2 (0.0-12.0) % Eosinophils % 4.5 (0.00-5.0) % Basophils % 0.3 (0.0-0.4) % Absolute Granulocytes 3.41 (1.4-6.9) Basophils # 0.02 (0-0.4) D-Dimer (215-500) ng/mL Sodium (137-145) mmol/L Potassium (3.5-5.1) mmol/L Chloride (98-107) mmol/L Carbon Dioxide (22-30) mmol/L Anion Gap (5-15) MEQ/L BUN (9-20) mg/dL Creatinine (0.66-1.25) mg/dL Estimated GFR ML/MIN Glucose (74-106) mg/dL Lactic Acid (0.4-2.0) Calcium (8.4-10.2) mg/dL Total Bilirubin (0.2-1.3) mg/dL AST (17-59) U/L ALT (0-50) U/L Alkaline Phosphatase (38-126) U/L Troponin I (0.000-0.034) ng/mL Serum Total Protein (6.3-8.2) g/dL Albumin (3.5-5.0) g/dL Amylase (30-110) U/L Lipase (23-300) U/L Urine Color (YELLOW) Urine Appearance (CLEAR) Urine pH (5-6) Ur Specific [place] (1.005-1.025) Urine Protein (Negative) Urine Ketones (NEGATIVE) Urine Blood (0-5) Cristino/ul Urine Nitrite (NEGATIVE) Urine Bilirubin (NEGATIVE) Urine Urobilinogen (0-1) mg/dL Ur Leukocyte Esterase (NEGATIVE) Urine WBC (Auto) (0-5) /HPF Urine RBC (Auto) (0-2) /HPF U Epithel Cells (Auto) (FEW) /HPF Urine Bacteria (Auto) (NEGATIVE) /HPF Urine Culture Reflexed (NO) Urine Glucose (NEGATIVE) mg/dL - Progress Progress Note: Patient endorsed to Dr. Dumont at approximately 7 AM. Patient reassessed. He is pain-free. Troponin negative x2. Patient requesting discharge. Heart score: 2 History: 0 EK Age: 3 Risk Factors: 1 Troponin 0 Heart score 2. Patient's pain reproduced via palpation to chest and abdomen. Y ou likely strained himself while leaning forward. No indication for further work-up at this time. Will discharge home. Patient agrees to follow-up with primary care doctor within 48 hours for evaluation. Patient voices no other complaints or concerns at this time. Portions of this note were created with voice recognition technology. There may be grammatical, spelling, punctuation or sound alike errors 04/30/21 11:58 - Departure Departure Disposition: Home Critical Care Time: No
[2021-04-30] MEDS ORDERED: PROTONIX 40 MG IV IV ONE ×2 (06:44→07:21)
[2021-04-30] MEDS ORDERED: Pepcid 20 MG VIAL IV ONE ×2 (06:44→07:20)
[2021-04-30] MEDS ORDERED: TORAdol 30 mg Injection IV ONE (06:44)
[2021-04-30] MEDS ORDERED: Sodium Chloride 0.9% 1000 ML 1,000 ML IV SCH (06:45)
[2021-04-30] MEDS ORDERED: Norflex 60 MG/2 ML IM ONE (06:47)
[2021-04-30 07:04] LABS: Absolute Neutrophil Ct (ANC) 3.41 (1.4-6.9); Basophil (Absolute #) 0.02 (0-0.4); Eosinophil % 4.5 % (0.00-5.0); Eosinophil (Absolute #) 0.26 (0-0.5); Hematocrit 44.7 % (42-50); Hemoglobin 14.4 gm/dl (12.5-18.0); Lymphocyte (Absolute #) 1.52 (1.0-4.6); Lymphocytes % 26.2 % (24.0-44.0); Mean Cell Volume 102.8 fl (78-100); Mean Corpuscular Hemoglobin 33.1 pg (26-32); Mean Corpuscular Hgb Concent. 32.2 g/dl (32-36); Mean Platelet Volume 8.5 fl (7.5-11.0); Monocyte (Absolute #) 0.59 (0.0-1.3); Monocytes % 10.2 % (0.0-12.0); Neutrophil % 58.8 % (36.0-66.0); Platelet Count 317 K/mm3 (150-450); Red Blood Count 4.35 M/mm3 (4.1-5.6); White Blood Count 5.8 K/mm3 (4.0-10.5)
[2021-04-30] MEDS ORDERED: TORAdol 30 mg Injection ONE (07:20)
[2021-04-30] MEDS ORDERED: Sodium Chloride 0.9% 1000 ML 1,000 ML ONE (07:21)
[2021-04-30] MEDS ORDERED: Norflex 60 MG/2 ML ONE (07:21)
[2021-04-30 07:25] LABS: ALBUMIN 4.4 g/dL (3.5-5.0); ALKALINE PHOSPHATASE 62 U/L (38-126); AMYLASE 32 U/L (30-110); ANION GAP 17.6 MEQ/L (5-15); BLOOD UREA NITROGEN 3 mg/dL (9-20); CHLORIDE 108 mmol/L (98-107); Calcium 9.2 mg/dL (8.4-10.2); Carbon Dioxide 23 mmol/L (22-30); Creatinine 1 0.58 mg/dL (0.66-1.25); EST GLOMERULAR FILTRATION RATE > 60.0 ML/MIN; Glucose 94 mg/dL (74-106); LIPASE 254 U/L (23-300); Potassium 3.9 mmol/L (3.5-5.1); SGOT/AST 55 U/L (17-59); SGPT/ALT 41 U/L (0-50); SODIUM 144 mmol/L (137-145); Total Protein 7.3 g/dL (6.3-8.2)
[2021-04-30 07:37] VITALS: O2SAT 99
[2021-04-30 07:40] LABS: Appearance CLEAR (CLEAR); Bilirubin NEGATIVE (NEGATIVE); Blood NEGATIVE Ery/ul (0-5); Glucose NEGATIVE (NEGATIVE); Ketones NEGATIVE (NEGATIVE); Leukocyte Esterase NEGATIVE (NEGATIVE); Nitrite NEGATIVE (NEGATIVE); Protein,Urine Dip NEGATIVE (Negative); Specific Gravity 1.002 (1.005-1.025); Urobilinogen NEGATIVE mg/dL (0-1)
[2021-04-30 07:43] LABS: Bacteria NONE SEEN /HPF (NEGATIVE); RBC NONE SEEN /HPF (0-2)
--- NOTE | 2021-04-30 08:38 | XRAY ---
Indication: Abdomen pain and tenderness. Multiple contiguous axial images obtained through the abdomen and pelvis without contrast. Comparison: None Lung bases are clear. Heart not enlarged. Noncontrasted stomach and bowel loops nonobstructed. Normal appendix. No free fluid/air. 1.1 cm left mid renal cortical cyst. Remaining liver, gallbladder, pancreas, spleen, adrenal glands, kidneys, ureters, bladder, and aorta are unremarkable for noncontrast exam. Osseous structures intact with minimal degenerative changes throughout the spine. No ventral or inguinal hernias. Impression: 1. Small left renal cyst. 2. Remaining CT abdomen/pelvis without contrast exam is negative.
--- NOTE | 2021-04-30 08:40 | XRAY ---
Indication: Chest pain. Comparison: September 02, 2019. Portable chest again demonstrates normal heart and lungs. Bony thorax intact with mild degenerative changes and mild dextroscoliosis. No new/acute findings.
[2021-04-30 11:49] VITALS: BP 124/83; PULSE 68
== END 2021-04-30 11:58 | disposition home or self-care (01) ==
LOC: ED 06:14
DX: S29.011A Strain of muscle and tendon of front wall of thorax, initial encounter (principal); X50.1XXA Overexertion from prolonged static or awkward postures, initial encounter; Y99.0 Civilian activity done for income or pay; R07.9 Chest pain, unspecified; R10.12 Left upper quadrant pain; I10 Essential (primary) hypertension; Z72.0 Tobacco use; Z79.899 Other long term (current) drug therapy; Q61.01 Congenital single renal cyst
CPT/HCPCS: 36000; 36415; 71045; 74176; 80053; 81001; 82150; 83605; 83690; 84484; 85025; 85379; 93005; 96372; 96374; 96375; 99285; J1885; J2360

== ENCOUNTER 2021-07-09 23:50 | Emergency (ER) | payer OTHER ==
[2021-07-10 00:14] LABS: Basophil (Absolute #) 0.03 (0-0.4); Eosinophil % 4.9 % (0.00-5.0); Eosinophil (Absolute #) 0.44 (0-0.5); Hematocrit 50.2 % (42-50); Hemoglobin 16.8 gm/dl (12.5-18.0); Lymphocyte (Absolute #) 4.05 (1.0-4.6); Lymphocytes % 45.4 % (24.0-44.0); Mean Cell Volume 96.9 fl (78-100); Mean Corpuscular Hemoglobin 32.4 pg (26-32); Mean Corpuscular Hgb Concent. 33.5 g/dl (32-36); Mean Platelet Volume 8.5 fl (7.5-11.0); Monocyte (Absolute #) 0.71 (0.0-1.3); Neutrophil % 41.4 % (36.0-66.0); Platelet Count 340 K/mm3 (150-450); Red Blood Count 5.18 M/mm3 (4.1-5.6); White Blood Count 8.9 K/mm3 (4.0-10.5)
[2021-07-10 00:26] LABS: ACETAMINOPHEN < 10 ug/ml (10-30); ALBUMIN 5.3 g/dL (3.5-5.0); ALKALINE PHOSPHATASE 90 U/L (38-126); ANION GAP 23.2 MEQ/L (5-15); BLOOD UREA NITROGEN 5 mg/dL (9-20); CHLORIDE 100 mmol/L (98-107); Calcium 10.1 mg/dL (8.4-10.2); Carbon Dioxide 24 mmol/L (22-30); Creatinine 1 0.61 mg/dL (0.66-1.25); EST GLOMERULAR FILTRATION RATE > 60.0 ML/MIN; ETHYL ALCOHOL 236 mg/dL (0-10); Glucose 91 mg/dL (74-106); Potassium 4.1 mmol/L (3.5-5.1); SALICYLATE < 1.0 mg/dL (2-20); SGOT/AST 37 U/L (17-59); SGPT/ALT 23 U/L (0-50); SODIUM 143 mmol/L (137-145); Total Protein 8.9 g/dL (6.3-8.2)
--- NOTE | 2021-07-10 01:22 | ERPHSYRPT ---
- History of Present Illness Time Seen by Provider: 07/09/21 23:59 Source: patient Exam Limitations: no limitations Patient Subjective Stated Complaint: pt called [facility] and said he took a bunch of his pills from his bubble packs and he just wanted to go to sleep tonight and not wake up tonight. Triage Nursing Assessment: pt called [facility] Me[facility] this evening and informed them that he took a bunch of pills from his bubble packs and he just wanted to go to sleep tonight and not wake up. Pt is living with his ex and states, "she is cheating on me with several people and I just can't take it anymore". Pt drinks daily approx 12-15 beers a day. Pt is appropriate, alert and oriented. Pt arrived with several bubble pack of medicines and cannot tell me what he took or how much of the meds, but states, "I thought I was taking a few of the sleeping pills and depressions pills". Physician History: Patient is a 52-year-old male presents to our ED via EMS for evaluation of suicidal attempt/overdose. Patient states he he overdosed on his home medications. Patient called [facility] meza to inform them of what he had done. Police were notified. Patient states that he took his pills with the intent that he would not wake up. Patient states he is upset as his ex- has been cheating on him with multiple people. Patient states he is overwhelmed. Patient states that he drinks beers regularly and also drink beers along with this medication. Patient is not sure exactly which medication he ingested. Patient has multiple blister packs with various medications. Patient cannot give accounts of the medication that he took and how many. Patient denies pain. No nausea or vomiting. No diaphoresis. No rash. No diarrhea. Patient has had suicide attempt in the past. Patient voices no other complaints or concerns at this time. Timing/Duration: today Severity of Symptoms-Max: moderate Severity of Symptoms-Current: moderate Context related to: spouse Suicidal thoughts: attempt Associated Symptoms: angry, depressed, frustrated, ingestion, suicidal ideation Previous symptoms: different symptoms Allergies/Adverse Reactions: Penicillins Allergy (Mild, Verified 07/10/21 00:23) Home Medications: Metoprolol Succinate 25 mg Xl* [Toprol-Xl 25MG Tablets] 25 mg PO BID 04/30/21 [History] Sertraline HCl 50 mg [Zoloft 50 mg Tablet] 25 mg PO DAILY 04/30/21 [History] Acetaminophen 325 mg [Tylenol 325 mg] 2 tab PO Q4HPRN PRN 07/10/21 [History] Clonidine HCl [Clonidine HCl ER] 1 tab PO TID PRN PRN 07/10/21 [History] Docusate Sodium 100 mg [Docusate Sodium 100 MG] 100 mg PO DAILY PRN PRN 07/10/21 [History] Folic Acid 1 mg [Folate 1 mg] 1 mg PO DAILY 07/10/21 [History] Ibuprofen [Ibu] 600 mg PO TID PRN PRN 07/10/21 [History] M-Vit,Tx,Iron,Mins/Calc/Folic [Thera-M Caplet] 1 tab PO DAILY 07/10/21 [History] Magnesium Oxide 1 tab PO DAILY 07/10/21 [History] Melatonin 5 mg PO HS PRN PRN 07/10/21 [History] Prazosin HCl 1 mg PO HS 07/10/21 [History] Thiamine HCl 100 mg [Vitamin B-1 100 mg] 1 tab PO DAILY 07/10/21 [History] hydrOXYzine pamoate [Hydroxyzine Pamoate] 1 tab PO Q6HPRN PRN 07/10/21 [History] Hx Tetanus, Diphtheria Vaccination/Date Given: Yes Hx Influenza Vaccination/Date Given: No Hx Pneumococcal Vaccination/Date Given: No Immunizations Up to Date: Yes Travel Risk - International Travel Have you traveled outside of the country in past 3 weeks: No - Coronavirus Screening Are you exhibiting any of the following symptoms?: No Close contact with a COVID-19 positive Pt in past 14-21 Days: No - Vaccine Status Have you recieved a Covid-19 vaccination: Yes [employer] 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 pericarditis - Past Surgical History Past Surgical History: Yes Neuro Surgical History: No Pertinent History Cardiac: No Pertinent History Respiratory: No Pertinent History Gastrointestinal: No Pertinent History Genitourinary: No Pertinent History Musculoskeletal: Amputation Male Surgical History: No Pertinent History Other Surgical History: left fifth finger amputation at [facility]. nose and sinus surgery - Social History Smoking Status: Current every day smoker How long have you smoked: 40 yrs Exposure to second hand smoke: Yes Drug Use: marijuana Patient Lives Alone: No Significant Family History: no pertinent family hx - Review of Systems Constitutional: No Symptoms, No Fever, No Chills Eyes: No Symptoms Ears, Nose, & Throat: No Symptoms Respiratory: No Symptoms, No Cough, No Dyspnea Cardiac: No Symptoms, No Chest Pain, No Edema, No Syncope Abdominal/Gastrointestinal: No Symptoms, No Abdominal Pain, No Nausea, No Vomiting, No Diarrhea Genitourinary Symptoms: No Symptoms, No Dysuria Musculoskeletal: No Symptoms, No Back Pain, No Neck Pain Skin: No Symptoms, No Rash Neurological: No Symptoms, No Dizziness, No Focal Weakness, No Sensory Changes Psychological: No Symptoms Endocrine: No Symptoms Hematologic/Lymphatic: No Symptoms Immunological/Allergic: No Symptoms All Other Systems: Reviewed and Negative - Nursing Vital Signs Nursing Vital Signs: Initial Vital Signs Temperature 97.4 F 07/09/21 23:56 Pulse Rate 112 H 07/09/21 23:56 Respiratory Rate 18 07/09/21 23:56 Blood Pressure 154/114 07/09/21 23:56 O2 Sat by Pulse Oximetry 98 07/09/21 23:56 Pain Scale Pain Intensity 0 - Physical Exam General Appearance: no apparent distress Eyes, Ears, Nose, Throat Exam: normal ENT inspection, TMs normal, pharynx normal, moist mucous membranes Neck Exam: normal inspection, non-tender, supple, full range of motion Respiratory Exam: normal breath sounds, lungs clear, airway intact, No chest tenderness, No respiratory distress Cardiovascular Exam: regular rate/rhythm, normal heart sounds, normal peripheral pulses, No edema Gastrointestinal/Abdominal Exam: soft, normal bowel sounds, No tenderness, No distention Extremities Exam: normal inspection, normal range of motion, No evidence of injury, No edema Peripheral Pulses: dorsalis-pedis (R): 2+, dorsalis-pedis (L): 2+ Current Suicidality: denies suicide plan Neurological Exam: alert, normal mood/affect, docket specialist II-XII nml as tested, oriented x 3, anxious Appearance: appropriate appearance, appropriate insight, neat Behavior/Eye Contact/Speech: alert & cooperative, good eye contact, normal speech Thoughts/Hallucinations: normal thought pattern, no apparent hallucination, No auditory hallucinations Skin Exam: normal color, warm, dry, No rash SpO2 Interpretation: normal SpO2: 98 O2 Delivery: Room Air - Course Nursing assessment & vital signs reviewed: Yes EKG Interpreted by Me: RATE (97), Sinus Rhythm, NORMAL AXIS, NORMAL INTERVALS Ordered Tests: Active Orders 24 hr Category Date Time Status Feed In Worker STAT Care 07/10/21 00:05 Active EKG-ER Only STAT Care 07/10/21 00:03 Active IV Insertion STAT Care 07/10/21 00:03 Active ACETAMINOPHEN Stat Lab 07/10/21 00:10 Completed Alcohol [ETHYL ALCOHOL] Stat Lab 07/10/21 04:15 Completed Alcohol [ETHYL ALCOHOL] Stat Lab 07/10/21 07:00 Ordered CBC W DIFF Stat Lab 07/10/21 00:10 Completed CMP Stat Lab 07/10/21 00:10 Completed CMP Stat Lab 07/10/21 06:45 Ordered ETHYL ALCOHOL Stat Lab 07/10/21 00:10 Completed SALICYLATE Stat Lab 07/10/21 00:10 Completed Urine Triage Profile Stat Lab 07/10/21 00:51 Completed Medication Summary Generic Name Dose Route Start Last Admin Trade Name Freq PRN Reason Stop Dose Admin Sodium Chloride 1,000 mls @ 999 mls/hr 07/10/21 06:44 07/10/21 06:45 Sodium Chloride 0.9% 1000 Ml IV 07/10/21 07:44 999 mls/hr .Q1H1M STA Administration Discontinued Medications Generic Name Dose Route Start Last Admin Trade Name Freq PRN Reason Stop Dose Admin Acetaminophen 1,000 mg 07/10/21 04:46 07/10/21 04:49 Acetaminophen 500 Mg Tablet PO 07/10/21 04:47 1,000 mg STAT STA Administration Acetaminophen Confirm 07/10/21 04:48 Acetaminophen 500 Mg Tablet Administered 07/10/21 04:49 Dose 1,000 mg .ROUTE .[facility] Lab/Rad Data: Laboratory Result Diagrams 07/10/21 00:10 07/10/21 00:10 Laboratory Results 07/10/21 07/10/21 07/10/21 Range/Units 04:20 04:15 00:51 WBC (4.0-10.5) K/mm3 RBC (4.1-5.6) M/mm3 Hgb (12.5-18.0) gm/dl Hct (42-50) % MCV (78-100) fl MCH (26-32) pg MCHC (32-36) g/dl RDW (11.5-14.0) % Plt Count (150-450) K/mm3 MPV (7.5-11.0) fl Gran % (36.0-66.0) % Eos # (Auto) (0-0.5) Absolute Lymphs (auto) (1.0-4.6) Absolute Monos (auto) (0.0-1.3) Lymphocytes % (24.0-44.0) % Monocytes % (0.0-12.0) % Eosinophils % (0.00-5.0) % Basophils % (0.0-0.4) % Absolute Granulocytes (1.4-6.9) Basophils # (0-0.4) Sodium (137-145) mmol/L Potassium (3.5-5.1) mmol/L Chloride (98-107) mmol/L Carbon Dioxide (22-30) mmol/L Anion Gap (5-15) MEQ/L BUN (9-20) mg/dL Creatinine (0.66-1.25) mg/dL Estimated GFR ML/MIN Glucose (74-106) mg/dL Calcium (8.4-10.2) mg/dL Total Bilirubin (0.2-1.3) mg/dL AST (17-59) U/L ALT (0-50) U/L Alkaline Phosphatase (38-126) U/L Serum Total Protein (6.3-8.2) g/dL Albumin (3.5-5.0) g/dL Salicylates (2-20) mg/dL Urine Opiates Level NEGATIVE (NEGATIVE) Ur Methadone NEGATIVE (NEGATIVE) Acetaminophen (10-30) ug/ml Urine Barbiturates NEGATIVE (NEGATIVE) Ur Phencyclidine (PCP) NEGATIVE (NEGATIVE) Urine Amphetamine NEGATIVE (NEGATIVE) U Benzodiazepine Level NEGATIVE (NEGATIVE) Urine Cocaine NEGATIVE (NEGATIVE) Urine Marijuana (THC) NEGATIVE (NEGATIVE) Ethyl Alcohol 137 H (0-10) mg/dL Influenza Type A Ag NEGATIVE (NEGATIVE) Influenza Type B Ag NEGATIVE (NEGATIVE) RSV (PCR) NEGATIVE (Negative) SARS-CoV-2 (PCR) NEGATIVE (NEGATIVE) 07/10/21 07/10/21 Range/Units 00:10 00:10 WBC 8.9 (4.0-10.5) K/mm3 RBC 5.18 (4.1-5.6) M/mm3 Hgb 16.8 (12.5-18.0) gm/dl Hct 50.2 H (42-50) % MCV 96.9 (78-100) fl MCH 32.4 H (26-32) pg MCHC 33.5 (32-36) g/dl RDW 13.0 (11.5-14.0) % Plt Count 340 (150-450) K/mm3 MPV 8.5 (7.5-11.0) fl Gran % 41.4 (36.0-66.0) % Eos # (Auto) 0.44 (0-0.5) Absolute Lymphs (auto) 4.05 (1.0-4.6) Absolute Monos (auto) 0.71 (0.0-1.3) Lymphocytes % 45.4 H (24.0-44.0) % Monocytes % 8.0 (0.0-12.0) % Eosinophils % 4.9 (0.00-5.0) % Basophils % 0.3 (0.0-0.4) % Absolute Granulocytes 3.70 (1.4-6.9) Basophils # 0.03 (0-0.4) Sodium 143 (137-145) mmol/L Potassium 4.1 (3.5-5.1) mmol/L Chloride 100 (98-107) mmol/L Carbon Dioxide 24 (22-30) mmol/L Anion Gap 23.2 H (5-15) MEQ/L BUN 5 L (9-20) mg/dL Creatinine 0.61 L (0.66-1.25) mg/dL Estimated GFR > 60.0 ML/MIN Glucose 91 (74-106) mg/dL Calcium 10.1 (8.4-10.2) mg/dL Total Bilirubin 0.40 (0.2-1.3) mg/dL AST 37 (17-59) U/L ALT 23 (0-50) U/L Alkaline Phosphatase 90 (38-126) U/L Serum Total Protein 8.9 H (6.3-8.2) g/dL Albumin 5.3 H (3.5-5.0) g/dL Salicylates < 1.0 L (2-20) mg/dL Urine Opiates Level (NEGATIVE) Ur Methadone (NEGATIVE) Acetaminophen < 10 L (10-30) ug/ml Urine Barbiturates (NEGATIVE) Ur Phencyclidine (PCP) (NEGATIVE) Urine Amphetamine (NEGATIVE) U Benzodiazepine Level (NEGATIVE) Urine Cocaine (NEGATIVE) Urine Marijuana (THC) (NEGATIVE) Ethyl Alcohol 236 H (0-10) mg/dL Influenza Type A Ag (NEGATIVE) Influenza Type B Ag (NEGATIVE) RSV (PCR) (Negative) SARS-CoV-2 (PCR) (NEGATIVE) - Progress Progress: improved Progress Note: Patient reassessed. Patient stable in our ED. We contacted poison control for direction. Poison control advised observation for 6 hours from the time of ingestion. Poison control return call. Patient medically cleared from their perspective. We are working on placement. Alcohol level still elevated. Repeat alcohol level will need to be performed at 7 AM. We will consult telemetry psych once alcohol level is under 100. 07/10/21 06:39 Anion gap elevated. We will bolus patient 1 L. Once bolus is complete we will run a chemistry and a repeat alcohol level. Patient endorsed to Dr. Bartlett final disposition. 07/10/21 06:47 Counseled pt/family regarding: lab results, diagnosis - Departure Clinical Impression: Suicidal overdose, Suicidal intent Condition: Stable Critical Care Time: No Referrals: GEOVANY LUX [Primary Care Provider] - Follow up/PCP as directed
[2021-07-10 01:53] LABS: Amphetamine,Urine NEGATIVE (NEGATIVE); Barbiturate,Urine NEGATIVE (NEGATIVE); Benzodiazepine,Urine NEGATIVE (NEGATIVE); Cocaine,Urine NEGATIVE (NEGATIVE); Methadone,Urine NEGATIVE (NEGATIVE); Opiate,Urine NEGATIVE (NEGATIVE); PCP,Urine NEGATIVE (NEGATIVE); THC,Urine NEGATIVE (NEGATIVE)
[2021-07-10] MEDS ORDERED: TYLENOL EXTRA STRENGTH 500 MG PO STA (04:46)
[2021-07-10] MEDS ORDERED: TYLENOL EXTRA STRENGTH 500 MG ONE (04:48)
[2021-07-10 05:05] LABS: INFLUENZA A NEGATIVE (NEGATIVE); INFLUENZA B NEGATIVE (NEGATIVE); RESPIRATORY SYNCTIAL VIRUS NEGATIVE (Negative); SARS-CoV-2 Xpert Express NEGATIVE (NEGATIVE)
[2021-07-10] MEDS ORDERED: Sodium Chloride 0.9% 1000 ML 1,000 ML IV STA (06:44)
[2021-07-10] MEDS ORDERED: Sodium Chloride 0.9% 1000 ML 1,000 ML ONE (06:44)
[2021-07-10 08:31] LABS: ALBUMIN 4.3 g/dL (3.5-5.0); ALKALINE PHOSPHATASE 69 U/L (38-126); ANION GAP 14.9 MEQ/L (5-15); BLOOD UREA NITROGEN 7 mg/dL (9-20); CHLORIDE 105 mmol/L (98-107); Calcium 8.6 mg/dL (8.4-10.2); Carbon Dioxide 25 mmol/L (22-30); Creatinine 1 0.68 mg/dL (0.66-1.25); EST GLOMERULAR FILTRATION RATE > 60.0 ML/MIN; ETHYL ALCOHOL 43 mg/dL (0-10); Glucose 111 mg/dL (74-106); Potassium 4.1 mmol/L (3.5-5.1); SGOT/AST 30 U/L (17-59); SGPT/ALT 19 U/L (0-50); SODIUM 141 mmol/L (137-145); Total Protein 7.3 g/dL (6.3-8.2)
[2021-07-10 11:08] VITALS: O2SAT 98
[2021-07-10] MEDS ORDERED: Ativan 2 MG/1 ML VIAL IM ONE (13:48)
[2021-07-10] MEDS ORDERED: Ativan 2 MG/1 ML VIAL ONE (13:50)
[2021-07-10 14:07] VITALS: BP 134/87; PULSE 79
== END 2021-07-10 16:18 | disposition short-term general hospital (02) ==
LOC: ED 23:50
DX: T14.91XA Suicide attempt, initial encounter (principal); T50.912A Poisoning by multiple unspecified drugs, medicaments and biological substances, intentional self-harm, initial encounter; Z63.5 Disruption of family by separation and divorce; I10 Essential (primary) hypertension; F41.8 Other specified anxiety disorders; Z72.0 Tobacco use; Z79.899 Other long term (current) drug therapy
CPT/HCPCS: 0241U; 36000; 36415; 80053; 80307; 85025; 93005; 93041; 96360; 96372; 99285; G0480; J2060; A9270-GY

== ENCOUNTER 2021-10-06 19:22 | Emergency (ER) | payer OTHER ==
[2021-10-06] MEDS ORDERED: GlucaGen 1 MG IV ONE (19:23)
[2021-10-06] MEDS ORDERED: GlucaGen 1 MG ONE (19:27)
[2021-10-06] MEDS ORDERED: PROTONIX 40 MG IV IV ONE ×2 (19:28→19:29)
--- NOTE | 2021-10-06 19:48 | ERPHSYRPT ---
- History of Present Illness Source: patient, EMS Exam Limitations: no limitations Patient Subjective Stated Complaint: pt states he was eating steak tonight and a piece got stuck in his throat. Triage Nursing Assessment: pt alert and oriented, answers questions approp. pt arrive per ambulance and ambulates into room to stretcher. respirations nonlabored with lungs cta. skin warma nd dry. upon arrival to er, pt spitting in emesis bag and states he is not able to swallow his saliva very well. Physician History: Steak caught in esophagus for 30minutes. Timing/Duration: abrupt onset Severity: mild ENT Location: throat Prearrival Treatment: no prearrival treatment Associated Symptoms: denies symptoms Allergies/Adverse Reactions: Penicillins Allergy (Mild, Verified 10/06/21 19:37) Home Medications: Metoprolol Succinate 25 mg Xl* [Toprol-Xl 25MG Tablets] 25 mg PO BID 04/30/21 [History] Sertraline HCl 50 mg [Zoloft 50 mg Tablet] 25 mg PO DAILY 04/30/21 [History] Acetaminophen 325 mg [Tylenol 325 mg] 2 tab PO Q4HPRN PRN 07/10/21 [History] Clonidine HCl [Clonidine HCl ER] 1 tab PO TID PRN PRN 07/10/21 [History] Docusate Sodium 100 mg [Docusate Sodium 100 MG] 100 mg PO DAILY PRN PRN 07/10/21 [History] Folic Acid 1 mg [Folate 1 mg] 1 mg PO DAILY 07/10/21 [History] Ibuprofen [Ibu] 600 mg PO TID PRN PRN 07/10/21 [History] M-Vit,Tx,Iron,Mins/Calc/Folic [Thera-M Caplet] 1 tab PO DAILY 07/10/21 [History] Magnesium Oxide 1 tab PO DAILY 07/10/21 [History] Melatonin 5 mg PO HS PRN PRN 07/10/21 [History] Prazosin HCl 1 mg PO HS 07/10/21 [History] Thiamine HCl 100 mg [Vitamin B-1 100 mg] 1 tab PO DAILY 07/10/21 [History] hydrOXYzine pamoate [Hydroxyzine Pamoate] 1 tab PO Q6HPRN PRN 07/10/21 [History] Hx Tetanus, Diphtheria Vaccination/Date Given: Yes Hx Influenza Vaccination/Date Given: No Hx Pneumococcal Vaccination/Date Given: No Immunizations Up to Date: Yes Travel Risk - International Travel Have you traveled outside of the country in past 3 weeks: No - Coronavirus Screening Are you exhibiting any of the following symptoms?: No Close contact with a COVID-19 positive Pt in past 14-21 Days: No - Vaccine Status Have you recieved a Covid-19 vaccination: Yes Glass Vial Filler: Bucky Box - Review of Systems Constitutional: No Symptoms Eyes: No Symptoms Ears, Nose, & Throat: No Symptoms, Painful Swallowing Respiratory: No Symptoms Cardiac: No Symptoms Abdominal/Gastrointestinal: No Symptoms Genitourinary Symptoms: No Symptoms Musculoskeletal: No Symptoms Skin: No Symptoms Neurological: No Symptoms Psychological: No Symptoms Endocrine: No Symptoms Hematologic/Lymphatic: No Symptoms Immunological/Allergic: No Symptoms - Past Medical History Pertinent Past Medical History: Yes Neurological History: No Pertinent History ENT History: No Pertinent History Cardiac History: Hypertension, Other Respiratory History: No Pertinent History Endocrine Medical History: No Pertinent History Musculoskeletal History: No Pertinent History GI Medical History: No Pertinent History History: No Pertinent History Psycho-Social History: Anxiety, Depression Male Reproductive Disorders: No Pertinent History Other Medical History: tendonitis rt arm. pericarditis - Past Surgical History Past Surgical History: Yes Neuro Surgical History: No Pertinent History Cardiac: No Pertinent History Respiratory: No Pertinent History Gastrointestinal: No Pertinent History Genitourinary: No Pertinent History Musculoskeletal: Amputation Male Surgical History: No Pertinent History Other Surgical History: left fifth finger amputation at [facility]. nose and sinus surgery - Social History Smoking Status: Current every day smoker How long have you smoked: 40 yrs Exposure to second hand smoke: Yes Drug Use: marijuana Patient Lives Alone: No Significant Family History: no pertinent family hx - Nursing Vital Signs Nursing Vital Signs: Initial Vital Signs Temperature 97.9 F 10/06/21 19:23 Pulse Rate 75 10/06/21 19:23 Respiratory Rate 18 10/06/21 19:23 Blood Pressure 126/91 10/06/21 19:23 O2 Sat by Pulse Oximetry 100 10/06/21 19:23 Pain Scale Pain Intensity 3 WNL - Physical Exam General Appearance: no apparent distress Eye Exam: bilateral eye: normal inspection, PERRL, EOMI Ear Exam: bilateral ear: auricle normal, canal normal, TM normal Nasal Exam: normal inspection Throat Exam: normal, pharynx normal Neck Exam: normal inspection, non-tender, supple, full range of motion, trachea midline, No JVD Cardiovascular/Respiratory Exam: normal breath sounds, regular rate/rhythm, heart sounds normal Abdominal Exam: non-tender, soft Neurologic Exam: alert, oriented x 3, cooperative, hair stylist II-XII nml as tested, normal mood/affect, nml cerebellar function, nml station & gait, sensation nml Skin Exam: normal color, warm, dry, No rash SpO2 Interpretation: normal SpO2: 100 O2 Delivery: Room Air - Course Nursing assessment & vital signs reviewed: Yes Ordered Tests: Active Orders 24 hr Category Date Time Status IV Insertion STAT Care 10/06/21 19:26 Completed Medication Summary Discontinued Medications Generic Name Dose Route Start Last Admin Trade Name Gutierrezq PRN Reason Stop Dose Admin Glucagon 1 mg 10/06/21 19:23 10/06/21 19:28 Glucagon 1 Mg/Vial Vial IV 10/06/21 19:24 Not Given STAT ONE Glucagon Confirm 10/06/21 19:27 Glucagon 1 Mg/Vial Vial Administered 10/06/21 19:28 Dose 1 mg .ROUTE .STK-MED ONE Pantoprazole Sodium 40 mg 10/06/21 19:28 10/06/21 19:30 Pantoprazole 40 Mg Vial IV 10/06/21 19:29 40 mg STAT ONE Administration Pantoprazole Sodium Confirm 10/06/21 19:29 Pantoprazole 40 Mg Vial Administered 10/06/21 19:30 Dose 40 mg IV .STK-MED ONE - Progress Progress: improved Progress Note: 10/06/21 19:44 Pt given cup of water and food bolus of steak resolved. 40mg IV Protonix Counseled pt/family regarding: diagnosis, need for follow-up - Departure Departure Disposition: Home Clinical Impression: Food impaction of esophagus Condition: Stable Critical Care Time: No Instructions: Removal of Foreign Body, Swallowed, Adult Additional Instructions: Follow up with your family MD or GI physician Return to ER as needed Start Prevacid, Nexium, or Prilosec daily
[2021-10-06 19:50] VITALS: BP 118/85; PULSE 72
[2021-10-06 20:44] VITALS: O2SAT 100
== END 2021-10-06 19:53 | disposition home or self-care (01) ==
LOC: ED 19:22
DX: T18.128A Food in esophagus causing other injury, initial encounter (principal); I10 Essential (primary) hypertension; Z72.0 Tobacco use; Z79.899 Other long term (current) drug therapy
CPT/HCPCS: 36000; 96374; 99283; J1610

== ENCOUNTER 2021-11-12 08:18 | Observation (INO) | payer OTHER ==
[2021-11-12] MEDS ORDERED: Nitrostat 0.4 MG (ED) SL ONE (08:35)
[2021-11-12] MEDS ORDERED: BABY ASPIRIN 81 MG CHEW PO ONE (08:35)
[2021-11-12 08:53] LABS: Basophil (Absolute #) 0.02 x10^3/uL (0-0.4); Eosinophil % 3.9 % (0.00-5.0); Eosinophil (Absolute #) 0.18 x10^3/uL (0-0.5); Hematocrit 39.1 % (42-50); Hemoglobin 13.2 g/dL (12.5-18.0); Lymphocyte (Absolute #) 1.43 x10^3/uL (1.0-4.6); Lymphocytes % 31.1 % (24.0-44.0); Mean Cell Volume 99.5 fL (78-100); Mean Corpuscular Hemoglobin 33.6 pg (26-32); Mean Corpuscular Hgb Concent. 33.8 g/dL (32-36); Mean Platelet Volume 8.7 fL (7.5-11.0); Monocyte (Absolute #) 0.56 x10^3/uL (0.0-1.3); Monocytes % 12.2 % (0.0-12.0); Neutrophil % 52.2 % (36.0-66.0); Platelet Count 241 x10^3/uL (150-450); Red Blood Count 3.93 x10^6/uL (4.1-5.6); Red Cell Distribution Width 12.9 % (11.5-14.0); White Blood Count 4.6 x10^3/uL (4.0-10.5)
--- NOTE | 2021-11-12 08:55 | ERPHSYRPT ---
- History of Present Illness Time Seen by Provider: 11/12/21 08:19 Patient Subjective Stated Complaint: PT states "They are sending me home for covid symptoms but when I got to the parking lot I started to have chest pain." Triage Nursing Assessment: PT presented alert and oriented X3, skin pwd Pt ambulates with an upright steady gait, able to speak in clear full setnences pt in no apparent respiratory distress. Pt resting comfortably on the bed. Physician History: This is a 56-year-old patient comes in with chest pain. - Patient reports that he has had intermittent chest pain since last night-rates the pain at about 6/10, shooting pain, lasts a few seconds, nonradiating, increases with taking a deep breath, no relieving factor. -Reports similar pain 4 to 5 years ago-evaluated for pericarditis at a different facility. States that he has had an echo and a catheterization done. He takes 81 mg aspirin. -Patient reports that his mom and sister both tested positive for COVID, morning he had a COVID test done and was advised to go home. -Ports that on his way home he felt the chest pain again which prompted the ED visit. -States that he does have a mild frontal headache and some chronic sinus problems. -Denies any cough/ fever -Patient reports that he is seeing a new primary care physician and has been taken off of all his anxiety medications for the past few weeks. That he has been using these medications for the past 5 years. -On exam he did have left lower quadrant tenderness to palpation-did not know he has had the pain, prior abdominal problems. Denies any urinary symptoms. He said he is not constipated. He denies any nausea/vomiting/recent antibiotic use. Timing/Duration: day(s) (last night) Activities at Onset: none Quality: sharpness Location: substernal Chest Pain Radiation: no radiation Severity of Pain-Max: moderate Severity of Pain-Current: none Modifying Factors: Improves With: breathing Associated Symptoms: headache, No shortness of breath, No cough, No fever, No fatigue Prior Chest Pain/Cardiac Workup: cardiac cath, echocardiography Nitro Today/Relief: 0.4 mg x 1, provided by ED Aspirin Treatment Today: 325 mg x 1, provided by ED Allergies/Adverse Reactions: Penicillins Allergy (Mild, Verified 10/06/21 19:37) Home Medications: Aspirin EC 81 mg [Ecotrin 81 mg] 11/12/21 [History] Gabapentin 600 mg PO DAILY 11/12/21 [History] Omeprazole 40 mg PO DAILY 11/12/21 [History] cloNIDine [Clonidine] 1 each TD DAILY 11/12/21 [History] Hx Tetanus, Diphtheria Vaccination/Date Given: Yes Hx Influenza Vaccination/Date Given: No Hx Pneumococcal Vaccination/Date Given: No Immunizations Up to Date: Yes Travel Risk - International Travel Have you traveled outside of the country in past 3 weeks: No - Coronavirus Screening Are you exhibiting any of the following symptoms?: No - Vaccine Status Have you recieved a Covid-19 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: 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 - Review of Systems Constitutional: No Fever, No Chills, No Fatigue Eyes: No Symptoms Ears, Nose, & Throat: No Symptoms Respiratory: No Symptoms Cardiac: Chest Pain, No Palpitations, No Syncope, No Orthopnea, No PND Abdominal/Gastrointestinal: Abdominal Pain, No Nausea, No Vomiting, No Constipation, No Appetite Changes Genitourinary Symptoms: No Symptoms Musculoskeletal: No Symptoms Skin: No Symptoms Neurological: No Symptoms Psychological: No Symptoms Endocrine: No Symptoms Hematologic/Lymphatic: No Symptoms Immunological/Allergic: No Symptoms All Other Systems: Reviewed and Negative - Past Medical History Pertinent Past Medical History: Yes Neurological History: No Pertinent History ENT History: No Pertinent History Cardiac History: Hypertension, Other Respiratory History: No Pertinent History Endocrine Medical History: No Pertinent History Musculoskeletal History: No Pertinent History GI Medical History: No Pertinent History History: No Pertinent History Psycho-Social History: Anxiety, Depression Male Reproductive Disorders: No Pertinent History Other Medical History: tendonitis rt arm. pericarditis - Past Surgical History Past Surgical History: Yes Neuro Surgical History: No Pertinent History Cardiac: No Pertinent History Respiratory: No Pertinent History Gastrointestinal: No Pertinent History Genitourinary: No Pertinent History Musculoskeletal: Amputation Male Surgical History: No Pertinent History Other Surgical History: left fifth finger amputation at [facility]. nose and sinus surgery - Social History Smoking Status: Current every day smoker How long have you smoked: 40 yrs Exposure to second hand smoke: Yes Drug Use: marijuana Patient Lives Alone: No Significant Family History: no pertinent family hx - Nursing Vital Signs Nursing Vital Signs: Initial Vital Signs Temperature 98.5 F 11/12/21 08:19 Pulse Rate 85 11/12/21 08:19 Respiratory Rate 22 08/22/22 08:19 Blood Pressure 140/89 11/12/21 08:19 O2 Sat by Pulse Oximetry 96 11/12/21 08:19 Pain Scale Pain Intensity 0 - Physical Exam General Appearance: no apparent distress Eye Exam: PERRL/EOMI, eyes nml inspection Ears, Nose, Throat Exam: normal ENT inspection, TMs normal, pharynx normal, moist mucous membranes Neck Exam: normal inspection, non-tender, supple, full range of motion Respiratory Exam: normal breath sounds, lungs clear, No chest tenderness, No respiratory distress, No accessory muscle use Cardiovascular Exam: regular rate/rhythm, normal heart sounds, normal peripheral pulses Gastrointestinal/Abdomen Exam: soft, normal bowel sounds, No tenderness, No distention Rectal Exam: deferred Back Exam: normal inspection, normal range of motion, No CVA tenderness Extremity Exam: normal inspection, normal range of motion Neurologic Exam: alert, oriented x 3, cooperative Skin Exam: normal color Lymphatic Exam: No adenopathy SpO2 Interpretation: normal SpO2: 96 O2 Delivery: Room Air - Course EKG Interpreted by Me: RATE (75), Sinus Rhythm, NORMAL INTERVALS Ordered Tests: Active Orders 24 hr Category Date Time Status ABDOMEN AND PELVIS W/0 CONTRAS [CT] Stat Exams 11/12/21 08:46 Completed CHEST 2 VIEWS (PA AND LAT) Stat Exams 11/12/21 08:36 Completed CBC W DIFF Stat Lab 11/12/21 08:30 Completed CMP Stat Lab 11/12/21 08:30 Completed D-DIMER QUANTITATIVE Stat Lab 11/12/21 08:30 Completed NT PRO BNP Stat Lab 11/12/21 08:30 Completed TROPONIN Q4H Lab 11/12/21 08:30 Completed TROPONIN Q4H Lab 11/12/21 12:45 Ordered TROPONIN Q4H Lab 11/12/21 16:45 Ordered Urine Triage Profile Stat Lab 11/12/21 10:43 Received Transfer Order Routine Transfer 11/12/21 Ordered Medication Summary Discontinued Medications Generic Name Dose Route Start Last Admin Trade Name Freq PRN Reason Stop Dose Admin Aspirin 324 mg 11/12/21 08:35 11/12/21 08:41 Aspirin 81 Mg Tab.Chew PO 11/12/21 08:36 324 mg STAT ONE Administration Nitroglycerin 0.4 mg 11/12/21 08:35 11/12/21 08:41 Nitroglycerin 0.4 Mg (Ed) 0.4 Mg Tab.Subl SL 11/12/21 08:36 0.4 mg STAT ONE Administration Lab/Rad Data: Laboratory Result Diagrams 11/12/21 08:30 11/12/21 08:30 Laboratory Results 11/12/21 11/12/21 11/12/21 Range/Units 08:30 08:30 08:30 WBC (4.0-10.5) x10^3/uL RBC (4.1-5.6) x10^6/uL Hgb (12.5-18.0) g/dL Hct (42-50) % MCV (78-100) fL MCH (26-32) pg MCHC (32-36) g/dL RDW (11.5-14.0) % Plt Count (150-450) x10^3/uL MPV (7.5-11.0) fL Gran % (36.0-66.0) % Immature Gran % (Auto) (0.00-0.4) % Nucleat RBC Rel Count (0.00-0.1) % Eos # (Auto) (0-0.5) x10^3/uL Immature Gran # (Auto) (0.00-0.03) x10^3u/L Absolute Lymphs (auto) (1.0-4.6) x10^3/uL Absolute Monos (auto) (0.0-1.3) x10^3/uL Absolute Nucleated RBC (0.00-0.01) x10^3u/L Lymphocytes % (24.0-44.0) % Monocytes % (0.0-12.0) % Eosinophils % (0.00-5.0) % Basophils % (0.0-0.4) % Absolute Granulocytes (1.4-6.9) x10^3/uL Basophils # (0-0.4) x10^3/uL D-Dimer 0.26 (0.0-0.50) mg/L Sodium 141 (137-145) mmol/L Potassium 4.0 (3.5-5.1) mmol/L Chloride 105 (98-107) mmol/L Carbon Dioxide 27 (22-30) mmol/L Anion Gap 13.4 (5-15) MEQ/L BUN 7 L (9-20) mg/dL Creatinine 0.61 L (0.66-1.25) mg/dL Estimated GFR > 60.0 ML/MIN Glucose 97 (74-106) mg/dL Calcium 8.9 (8.4-10.2) mg/dL Total Bilirubin 0.30 (0.2-1.3) mg/dL AST 66 H (17-59) U/L ALT 51 H (0-50) U/L Alkaline Phosphatase 71 (38-126) U/L Troponin I < 0.012 (0.000-0.034) ng/mL NT-Pro-B Natriuret Pep 40.2 (0-900) pg/mL Serum Total Protein 7.5 (6.3-8.2) g/dL Albumin 4.5 (3.5-5.0) g/dL 11/12/21 Range/Units 08:30 WBC 4.6 (4.0-10.5) x10^3/uL RBC 3.93 L (4.1-5.6) x10^6/uL Hgb 13.2 (12.5-18.0) g/dL Hct 39.1 L (42-50) % MCV 99.5 (78-100) fL MCH 33.6 H (26-32) pg MCHC 33.8 (32-36) g/dL RDW 12.9 (11.5-14.0) % Plt Count 241 (150-450) x10^3/uL MPV 8.7 (7.5-11.0) fL Gran % 52.2 (36.0-66.0) % Immature Gran % (Auto) 0.2 (0.00-0.4) % Nucleat RBC Rel Count 0.0 (0.00-0.1) % Eos # (Auto) 0.18 (0-0.5) x10^3/uL Immature Gran # (Auto) 0.01 (0.00-0.03) x10^3u/L Absolute Lymphs (auto) 1.43 (1.0-4.6) x10^3/uL Absolute Monos (auto) 0.56 (0.0-1.3) x10^3/uL Absolute Nucleated RBC 0.00 (0.00-0.01) x10^3u/L Lymphocytes % 31.1 (24.0-44.0) % Monocytes % 12.2 H (0.0-12.0) % Eosinophils % 3.9 (0.00-5.0) % Basophils % 0.4 (0.0-0.4) % Absolute Granulocytes 2.40 (1.4-6.9) x10^3/uL Basophils # 0.02 (0-0.4) x10^3/uL D-Dimer (0.0-0.50) mg/L Sodium (137-145) mmol/L Potassium (3.5-5.1) mmol/L Chloride (98-107) mmol/L Carbon Dioxide (22-30) mmol/L Anion Gap (5-15) MEQ/L BUN (9-20) mg/dL Creatinine (0.66-1.25) mg/dL Estimated GFR ML/MIN Glucose (74-106) mg/dL Calcium (8.4-10.2) mg/dL Total Bilirubin (0.2-1.3) mg/dL AST (17-59) U/L ALT (0-50) U/L Alkaline Phosphatase (38-126) U/L Troponin I (0.000-0.034) ng/mL NT-Pro-B Natriuret Pep (0-900) pg/mL Serum Total Protein (6.3-8.2) g/dL Albumin (3.5-5.0) g/dL - Progress Progress Note: 11/12/21 10:33 . -This is a 56-year-old gentleman presenting to the ED for evaluation of chest pain -Initially given a dose of aspirin and Nitro -VSS As patient had abdominal tenderness to palpation with prior abdominal history CT abdomen pelvis without contrast was done which shows . I see no acute intra- abdominal or pelvic process. There again appears to be a probable small left hepatic lobe cyst, small fatty umbilical hernia, which is a bit more prominent to the left of midline, and a small probable cyst at the posterior aspect of the middle third of the left kidney. 11/12/21 10:36 Chest x-ray shows No acute cardiopulmonary disease is radiographically seen. 11/12/21 11:11 CBC.CMP, troponin x 1, CK, D-dimer, BNP - WNL Covid - negative P. has a HEART score of 4 and needs further monitoring- hence d/w who has agreed to admit the pt. D/w pt. who has no further questions. Blood Culture(s) Obtained: No Antibiotics given: No Discussed with : Marianna Will see patient in: hospital (observation) - Departure Departure Disposition: Observation Clinical Impression: Chest pain Condition: Stable Critical Care Time: No Referrals: Provider,Unknown [NON-STAFF PHY W/O PRIVILEGES] - Follow up/PCP as directed
[2021-11-12 09:14] LABS: ALBUMIN 4.5 g/dL (3.5-5.0); ALKALINE PHOSPHATASE 71 U/L (38-126); ANION GAP 13.4 MEQ/L (5-15); BLOOD UREA NITROGEN 7 mg/dL (9-20); CHLORIDE 105 mmol/L (98-107); Calcium 8.9 mg/dL (8.4-10.2); Carbon Dioxide 27 mmol/L (22-30); Creatinine 1 0.61 mg/dL (0.66-1.25); EST GLOMERULAR FILTRATION RATE > 60.0 ML/MIN; Glucose 97 mg/dL (74-106); NT PRO BNP 40.2 pg/mL (0-900); SGOT/AST 66 U/L (17-59); SGPT/ALT 51 U/L (0-50); SODIUM 141 mmol/L (137-145); Total Protein 7.5 g/dL (6.3-8.2)
--- NOTE | 2021-11-12 09:43 | XRAY ---
Exam: Two-view chest from 11/12/2021. Comparison: AP portable chest film from 04/30/2021. Indication: 56-year-old male with onset of chest pain starting this morning. Findings: Upright PA and lateral chest films are submitted for evaluation. EKG leads are seen in place The heart size and contour are normal. The meggan and mediastinal structures appear unremarkable. There has been a good inspiratory effort. There is a suggestion of small nipple shadows overlying each lung base. No air space infiltrates, vascular congestion, pneumothorax, or pleural fluid is seen. There is questionable minimal scarring/atelectasis within the peripheral right upper lung field. I again note a mid thoracic dextroscoliosis. There is also a mild mid dorsal kyphosis present on the lateral image. Small anterior vertebral endplate spurs are also seen on the lateral radiograph. No acute osseous process is seen. Impression: 1. No acute cardiopulmonary disease is radiographically seen.
--- NOTE | 2021-11-12 10:25 | XRAY ---
Exam: CT of the abdomen and pelvis without IV contrast from 11/12/2021. CTDI: 3.54 mGy Comparison: CT of the abdomen and pelvis without IV contrast from 04/30/2021. Indication: 56-year-old male with left upper quadrant abdominal pain and chest pain for one day. Technique: Non-IV contrast axial images were obtained through the abdomen and pelvis. No oral contrast was given. Reconstructed coronal and sagittal images were created and reviewed. Findings: The heart size is normal. The visualized lung bases appear clear. Assessment of the solid organs is limited without the use of IV contrast. The liver appears of unremarkable size. Within the posterior aspect of the superior left hepatic lobe, I note a 1.4 cm in width hypoattenuated lesion which I believe in retrospect is present on the prior CT study from 04/30/2021 and appears about the same. This likely represents a small hepatic cyst. It measures +12.1 Hounsfield units. The remainder of the liver appears of uniform attenuation without intrahepatic biliary duct distention. The gallbladder is of unremarkable size and reveals no dense calcifications within it. The spleen, pancreas, and adrenal glands appear unremarkable. Within the posterior aspect of the middle third of the left kidney there is a 1.1 cm in diameter relatively round low-attenuation lesion measuring +7.9 Hounsfield units, likely representing a small renal cortical cyst. This is best seen on axial images #26 and #27. This appears similar to 04/30/2021. Otherwise, the kidneys appear unremarkable revealing no hydronephrosis or renal calculi. The ureters are not dilated. No urinary bladder stone is seen. The abdominal aorta appears of normal diameter. No abnormal retroperitoneal lymphadenopathy is seen. No free intraperitoneal air is identified. A small fatty umbilical hernia is again seen in retrospect. No bowel containing ventral hernia is seen. Nonopacified bowel loops appear nonobstructed. Scattered stool is seen within the ascending colon and transverse colon. The appendix appears unremarkable within the right lower quadrant. I see no evidence of diverticulitis. The pelvis reveals no suspicious mass, abnormal lymphadenopathy, or free intraperitoneal fluid. The urinary bladder appears unremarkable. The seminal vesicles and prostate gland remain normal. The skeleton reveals no acute fracture or aggressive bone lesion. I do note some mild degenerative disc disease at L5-S1 with a small amount of new vacuum disc phenomena at L5-S1. There is also a small bubble of air density seen posterior to the upper aspect of the sacrum just to the right of midline, best seen on sagittal image #88. This is new. Small vertebral endplate spurs are noted within the visualized spine. There is also some mild degenerative disc disease at T10-T11 and T11-T12, the latter site containing some vacuum disc phenomena as well. This appears about the same as 04/30/2021. Impression: 1. I see no acute intra-abdominal or pelvic process. There again appears to be a probable small left hepatic lobe cyst, small fatty umbilical hernia, which is a bit more prominent to the left of midline, and a small probable cyst at the posterior aspect of the middle third of the left kidney. 2. Early degenerative disc disease is seen within the lower thoracic spine and at L5-S1, as discussed.
[2021-11-12 11:10] LABS: Amphetamine,Urine NEGATIVE (NEGATIVE); Barbiturate,Urine NEGATIVE (NEGATIVE); Benzodiazepine,Urine NEGATIVE (NEGATIVE); Cocaine,Urine NEGATIVE (NEGATIVE); Methadone,Urine NEGATIVE (NEGATIVE); Opiate,Urine NEGATIVE (NEGATIVE); PCP,Urine NEGATIVE (NEGATIVE); THC,Urine POSITIVE (NEGATIVE)
[2021-11-12] MEDS ORDERED: Zofran 4 MG/2 ML VIAL IV PRN (11:35)
[2021-11-12] MEDS ORDERED: Senokot-S Tablet PO PRN (11:35)
[2021-11-12] MEDS ORDERED: MAALOX ES 30 ML UNIT DOSE PO PRN (11:35)
[2021-11-12] MEDS ORDERED: TYLENOL 325 MG PO PRN (11:35)
[2021-11-12] MEDS ORDERED: MILK OF MAGNESIA 30 ML PO PRN (11:35)
--- NOTE | 2021-11-12 16:25 | PCM.HP ---
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 states he was feeling like there were waves in floor but that has resolved. he is a daily drinker and has been in court ordered treatment previously, admits to having 2-3 drinks daily after work, denies hx of withdrawal or DTs. - Review of Systems Constitutional: No Fever, No Chills Respiratory: No Cough, No Short Of Breath Cardiac: Chest Pain Abdominal/Gastrointestinal: No Abdominal Pain, No Nausea, No Vomiting, No Diarrhea Genitourinary Symptoms: No Dysuria Psychological: Alcohol Abuse, Anxiety Medications & Allergies Home Medications: Home Medication List Aspirin EC 81 mg [Ecotrin 81 mg] 81 mg PO DAILY 11/12/21 [History Confirmed 11/12/21] Metoprolol Succinate 25 mg Xl* [Toprol-Xl 25MG Tablets] 25 mg PO BID 11/12/21 [History Confirmed 11/12/21] Omeprazole 40 mg PO DAILY 11/12/21 [History Confirmed 11/12/21] Sertraline HCl 50 mg [Zoloft 50 mg Tablet] 50 mg PO DAILY 11/12/21 [History Confirmed 11/12/21] cloNIDine [Clonidine] 1 each TD DAILY 11/12/21 [History Confirmed 11/12/21] Allergies/Adverse Reactions: Allergies Allergy/AdvReac Type Severity Reaction Status Date / Time Penicillins Allergy Mild Verified 10/06/21 19:37 - Past Medical History Past Medical History: Yes Neurological History: No Pertinent History ENT History: No Pertinent History Cardiac History: Hypertension, Other Respiratory History: No Pertinent History Endocrine Medical History: No Pertinent History Musculoskelatal History: No Pertinent History GI Medical History: No Pertinent History History: No Pertinent History Pyscho-Social History: Anxiety, Depression Male Reproductive Disorders: No Pertinent History Comment: tendonitis rt arm. pericarditis - Past Surgical History Past Surgical History: Yes Neuro Surgical History: No Pertinent History Cardiac History: No Pertinent History Respiratory Surgery: No Pertinent History GI Surgical History: No Pertinent History Genitourinary Surgical Hx: No Pertinent History Musculskeletal Surgical Hx: Amputation Male Surgical History: No Pertinent History Other Surgical History: left fifth finger amputation at [facility]. nose and sinus surgery - Social History Smoking Status: Current every day smoker How long have you smoked: 40 yrs Exposure to second hand smoke: Yes Alcohol: Daily Drug Use: marijuana Significant Family History: no pertinent family hx - Physical Exam Vital Signs: Vital Signs - 24 hr Temp Pulse Pulse Resp BP Pulse Ox 11/12/21 16:00 97.9 F 62 16 134/82 96 11/12/21 11:53 97.5 F 70 20 137/95 97 11/12/21 11:14 96 11/12/21 11:02 97.8 F 69 20 127/82 98 11/12/21 10:00 62 18 115/71 96 11/12/21 09:18 63 18 104/69 97 11/12/21 08:19 98.5 F 85 87 22 140/89 96 General Appearance: no apparent distress, alert Neurologic Exam: alert Respiratory Exam: normal breath sounds, lungs clear, No respiratory distress Cardiovascular Exam: regular rate/rhythm, normal heart sounds, normal peripheral pulses Gastrointestinal/Abdomen Exam: soft, normal bowel sounds, No tenderness, No mass Extremity Exam: normal inspection, normal range of motion, pelvis stable Skin Exam: normal color, warm, dry, No rash Results - Labs Lab/Micro Results: Lab Results-Last 24 Hours 11/12/21 11/12/21 11/12/21 Range/Units 08:30 08:30 08:30 WBC 4.6 (4.0-10.5) x10^3/uL RBC 3.93 L (4.1-5.6) x10^6/uL Hgb 13.2 (12.5-18.0) g/dL Hct 39.1 L (42-50) % MCV 99.5 (78-100) fL MCH 33.6 H (26-32) pg MCHC 33.8 (32-36) g/dL RDW 12.9 (11.5-14.0) % Plt Count 241 (150-450) x10^3/uL MPV 8.7 (7.5-11.0) fL Gran % 52.2 (36.0-66.0) % Immature Gran % (Auto) 0.2 (0.00-0.4) % Nucleat RBC Rel Count 0.0 (0.00-0.1) % Eos # (Auto) 0.18 (0-0.5) x10^3/uL Immature Gran # (Auto) 0.01 (0.00-0.03) x10^3u/L Absolute Lymphs (auto) 1.43 (1.0-4.6) x10^3/uL Absolute Monos (auto) 0.56 (0.0-1.3) x10^3/uL Absolute Nucleated RBC 0.00 (0.00-0.01) x10^3u/L Lymphocytes % 31.1 (24.0-44.0) % Monocytes % 12.2 H (0.0-12.0) % Eosinophils % 3.9 (0.00-5.0) % Basophils % 0.4 (0.0-0.4) % Absolute Granulocytes 2.40 (1.4-6.9) x10^3/uL Basophils # 0.02 (0-0.4) x10^3/uL D-Dimer 0.26 (0.0-0.50) mg/L Sodium 141 (137-145) mmol/L Potassium 4.0 (3.5-5.1) mmol/L Chloride 105 (98-107) mmol/L Carbon Dioxide 27 (22-30) mmol/L Anion Gap 13.4 (5-15) MEQ/L BUN 7 L (9-20) mg/dL Creatinine 0.61 L (0.66-1.25) mg/dL Estimated GFR > 60.0 ML/MIN Glucose 97 (74-106) mg/dL Calcium 8.9 (8.4-10.2) mg/dL Total Bilirubin 0.30 (0.2-1.3) mg/dL AST 66 H (17-59) U/L ALT 51 H (0-50) U/L Alkaline Phosphatase 71 (38-126) U/L Troponin I (0.000-0.034) ng/mL NT-Pro-B Natriuret Pep 40.2 (0-900) pg/mL Serum Total Protein 7.5 (6.3-8.2) g/dL Albumin 4.5 (3.5-5.0) g/dL Urine Opiates Level (NEGATIVE) Ur Methadone (NEGATIVE) Urine Barbiturates (NEGATIVE) Ur Phencyclidine (PCP) (NEGATIVE) Urine Amphetamine (NEGATIVE) U Benzodiazepine Level (NEGATIVE) Urine Cocaine (NEGATIVE) Urine Marijuana (THC) (NEGATIVE) 11/12/21 11/12/21 11/12/21 Range/Units 08:30 10:43 12:56 WBC (4.0-10.5) x10^3/uL RBC (4.1-5.6) x10^6/uL Hgb (12.5-18.0) g/dL Hct (42-50) % MCV (78-100) fL MCH (26-32) pg MCHC (32-36) g/dL RDW (11.5-14.0) % Plt Count (150-450) x10^3/uL MPV (7.5-11.0) fL Gran % (36.0-66.0) % Immature Gran % (Auto) (0.00-0.4) % Nucleat RBC Rel Count (0.00-0.1) % Eos # (Auto) (0-0.5) x10^3/uL Immature Gran # (Auto) (0.00-0.03) x10^3u/L Absolute Lymphs (auto) (1.0-4.6) x10^3/uL Absolute Monos (auto) (0.0-1.3) x10^3/uL Absolute Nucleated RBC (0.00-0.01) x10^3u/L Lymphocytes % (24.0-44.0) % Monocytes % (0.0-12.0) % Eosinophils % (0.00-5.0) % Basophils % (0.0-0.4) % Absolute Granulocytes (1.4-6.9) x10^3/uL Basophils # (0-0.4) x10^3/uL D-Dimer (0.0-0.50) mg/L Sodium (137-145) mmol/L Potassium (3.5-5.1) mmol/L Chloride (98-107) mmol/L Carbon Dioxide (22-30) mmol/L Anion Gap (5-15) MEQ/L BUN (9-20) mg/dL Creatinine (0.66-1.25) mg/dL Estimated GFR ML/MIN Glucose (74-106) mg/dL Calcium (8.4-10.2) mg/dL Total Bilirubin (0.2-1.3) mg/dL AST (17-59) U/L ALT (0-50) U/L Alkaline Phosphatase (38-126) U/L Troponin I < 0.012 < 0.012 (0.000-0.034) ng/mL NT-Pro-B Natriuret Pep (0-900) pg/mL Serum Total Protein (6.3-8.2) g/dL Albumin (3.5-5.0) g/dL Urine Opiates Level NEGATIVE (NEGATIVE) Ur Methadone NEGATIVE (NEGATIVE) Urine Barbiturates NEGATIVE (NEGATIVE) Ur Phencyclidine (PCP) NEGATIVE (NEGATIVE) Urine Amphetamine NEGATIVE (NEGATIVE) U Benzodiazepine Level NEGATIVE (NEGATIVE) Urine Cocaine NEGATIVE (NEGATIVE) Urine Marijuana (THC) POSITIVE (NEGATIVE) - Radiology Impressions Radiology Exams & Impressions: Radiology Procedures Category Date Time Status ABDOMEN AND PELVIS W/0 CONTRAS [CT] Stat Exams 11/12/21 08:46 Completed CHEST 2 VIEWS (PA AND LAT) Stat Exams 11/12/21 08:36 Completed - Other Procedures and Tests Respiratory Therapy 11/12/21 16:22 EKG ONCE 11/13/21 05:00 EKG ONCE 11/14/21 05:00 EKG ONCE 11/15/21 05:00 EKG ONCE Assessment/Plan (1) Chest pain Current Visit: Yes Status: Acute Assessment & Plan: complaints are atypical, likely related to viral illness. covid negative, will r/o [place] Code(s): R07.9 - CHEST PAIN, UNSPECIFIED (2) Alcoholism Current Visit: Yes Status: Acute Code(s): F10.20 - ALCOHOL DEPENDENCE, UNCOMPLICATED (3) Anxiety Current Visit: Yes Status: Acute Assessment & Plan: prn ativan ordered, advised nursing. I suspect his alcohol use is heavier than he admits, will watch for withdrawal symptoms. Code(s): F41.9 - ANXIETY DISORDER, UNSPECIFIED
[2021-11-12] MEDS: Ativan 2 MG/1 ML VIAL IV PRN ×2 (17:45→21:48)
[2021-11-12] MEDS ORDERED: Catapres TTS-2 PATCH TOP SCH (18:00)
[2021-11-12] MEDS: Toprol-Xl 25MG Tablets PO SCH (21:48)
[2021-11-13] MEDS: Ativan 2 MG/1 ML VIAL IV PRN (04:32)
[2021-11-13 04:53] LABS: Basophil (Absolute #) 0.02 x10^3/uL (0-0.4); Red Cell Distribution Width 12.7 % (11.5-14.0)
[2021-11-13 05:18] LABS: ALBUMIN 4.1 g/dL (3.5-5.0); ALKALINE PHOSPHATASE 73 U/L (38-126); ANION GAP 9.4 MEQ/L (5-15); BLOOD UREA NITROGEN 11 mg/dL (9-20); CHLORIDE 101 mmol/L (98-107); Calcium 9.1 mg/dL (8.4-10.2); Carbon Dioxide 30 mmol/L (22-30); Creatinine 1 0.69 mg/dL (0.66-1.25); EST GLOMERULAR FILTRATION RATE > 60.0 ML/MIN; Glucose 105 mg/dL (74-106); Potassium 3.7 mmol/L (3.5-5.1); SGOT/AST 52 U/L (17-59); SGPT/ALT 43 U/L (0-50); SODIUM 137 mmol/L (137-145); Total Protein 7.1 g/dL (6.3-8.2)
[2021-11-13 05:26] LABS: Risk Ratio 4.2
[2021-11-13 05:34] LABS: Absolute Neutrophil Ct (ANC) 2.24 x10^3/uL (1.4-6.9); Eosinophil % 2.9 % (0.00-5.0); Eosinophil (Absolute #) 0.12 x10^3/uL (0-0.5); Hematocrit 41.3 % (42-50); Hemoglobin 13.5 g/dL (12.5-18.0); Lymphocyte (Absolute #) 1.28 x10^3/uL (1.0-4.6); Lymphocytes % 30.6 % (24.0-44.0); Mean Corpuscular Hemoglobin 32.7 pg (26-32); Mean Corpuscular Hgb Concent. 32.7 g/dL (32-36); Monocyte (Absolute #) 0.51 x10^3/uL (0.0-1.3); Monocytes % 12.2 % (0.0-12.0); Neutrophil % 53.6 % (36.0-66.0); Platelet Count 227 x10^3/uL (150-450); Red Blood Count 4.13 x10^6/uL (4.1-5.6); White Blood Count 4.2 x10^3/uL (4.0-10.5)
[2021-11-13 07:35] VITALS: BP 128/68; PULSE 52; O2SAT 99
[2021-11-13] MEDS: Toprol-Xl 25MG Tablets PO SCH (09:09)
--- NOTE | 2021-11-13 09:42 | PCM.DS ---
Discharge Summary Date of Admission: 11/12/21 11:28 Admitting Physician: JOANNE GARCIA Primary Care Provider: JOANNE GARCIA Allergies Allergies Penicillins Allergy (Mild, Verified 10/06/21 19:37) Hospital Summary - Hospital Course Hospital Course: Pt is a 56 yo male pt of Dr. Garcia' with hx HTN, anxiety, alcoholism, and chronic back pain and cervical spine disc herniation who was admitted through ER [facility]. 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 Also felt like was walking on "waves on the floor." Dr. Garcia elicited hx drinking 2-3 alcoholic drinks every evening after work. He ruled out for [place]. Was having some anxiety and given ativan, which he said made him feel "druggie." Getting up ok to the bathroom now, just has to wait a minute after waking. No longer having any chest pain. Never had stress test - will do lexiscan cardiolyte outpatient (due to chronic neck and back pain, sees Dr. Walters). f/u with Dr. Garcia in 1 week regarding his elevated cholesterol. - Vitals & Intake/Output Vital Signs: Vital Signs Temperature 98.1 F 11/13/21 07:34 Pulse Rate 52 L 11/13/21 07:34 Respiratory Rate 16 11/13/21 07:34 Blood Pressure 128/68 11/13/21 07:34 O2 Sat by Pulse Oximetry 99 11/13/21 07:34 Intake & Output: Intake & Output 11/10/21 11/11/21 11/12/21 11/13/21 11:59 11:59 11:59 11:59 Intake Total 2019 Balance 2019 Weight 65.9 kg 65.8 kg - Lab Result Diagrams: 11/13/21 04:49 11/13/21 04:49 Lab Results-Last 24 Hrs: Lab Results-Last 24 Hours 11/12/21 11/12/21 11/12/21 Range/Units 10:43 12:56 18:11 WBC (4.0-10.5) x10^3/uL RBC (4.1-5.6) x10^6/uL Hgb (12.5-18.0) g/dL Hct (42-50) % MCV (78-100) fL MCH (26-32) pg MCHC (32-36) g/dL RDW (11.5-14.0) % Plt Count (150-450) x10^3/uL MPV (7.5-11.0) fL Gran % (36.0-66.0) % Immature Gran % (Auto) (0.00-0.4) % Nucleat RBC Rel Count (0.00-0.1) % Eos # (Auto) (0-0.5) x10^3/uL Immature Gran # (Auto) (0.00-0.03) x10^3u/L Absolute Lymphs (auto) (1.0-4.6) x10^3/uL Absolute Monos (auto) (0.0-1.3) x10^3/uL Absolute Nucleated RBC (0.00-0.01) x10^3u/L Lymphocytes % (24.0-44.0) % Monocytes % (0.0-12.0) % Eosinophils % (0.00-5.0) % Basophils % (0.0-0.4) % Absolute Granulocytes (1.4-6.9) x10^3/uL Basophils # (0-0.4) x10^3/uL Sodium (137-145) mmol/L Potassium (3.5-5.1) mmol/L Chloride (98-107) mmol/L Carbon Dioxide (22-30) mmol/L Anion Gap (5-15) MEQ/L BUN (9-20) mg/dL Creatinine (0.66-1.25) mg/dL Estimated GFR ML/MIN Glucose (74-106) mg/dL Calcium (8.4-10.2) mg/dL Total Bilirubin (0.2-1.3) mg/dL AST (17-59) U/L ALT (0-50) U/L Alkaline Phosphatase (38-126) U/L Troponin I < 0.012 < 0.012 (0.000-0.034) ng/mL Serum Total Protein (6.3-8.2) g/dL Albumin (3.5-5.0) g/dL Triglycerides (30-150) mg/dL Cholesterol (50-200) mg/dL LDL Cholesterol (30-100) mg/dL HDL Cholesterol (40-60) mg/dL Heart Disease Risk Ratio Urine Opiates Level NEGATIVE (NEGATIVE) Ur Methadone NEGATIVE (NEGATIVE) Urine Barbiturates NEGATIVE (NEGATIVE) Ur Phencyclidine (PCP) NEGATIVE (NEGATIVE) Urine Amphetamine NEGATIVE (NEGATIVE) U Benzodiazepine Level NEGATIVE (NEGATIVE) Urine Cocaine NEGATIVE (NEGATIVE) Urine Marijuana (THC) POSITIVE (NEGATIVE) 11/13/21 11/13/21 11/13/21 Range/Units 04:49 04:49 04:49 WBC 4.2 (4.0-10.5) x10^3/uL RBC 4.13 (4.1-5.6) x10^6/uL Hgb 13.5 (12.5-18.0) g/dL Hct 41.3 L (42-50) % MCV 100.0 (78-100) fL MCH 32.7 H (26-32) pg MCHC 32.7 (32-36) g/dL RDW 12.7 (11.5-14.0) % Plt Count 227 (150-450) x10^3/uL MPV 9.0 (7.5-11.0) fL Gran % 53.6 (36.0-66.0) % Immature Gran % (Auto) 0.2 (0.00-0.4) % Nucleat RBC Rel Count 0.0 (0.00-0.1) % Eos # (Auto) 0.12 (0-0.5) x10^3/uL Immature Gran # (Auto) 0.01 (0.00-0.03) x10^3u/L Absolute Lymphs (auto) 1.28 (1.0-4.6) x10^3/uL Absolute Monos (auto) 0.51 (0.0-1.3) x10^3/uL Absolute Nucleated RBC 0.00 (0.00-0.01) x10^3u/L Lymphocytes % 30.6 (24.0-44.0) % Monocytes % 12.2 H (0.0-12.0) % Eosinophils % 2.9 (0.00-5.0) % Basophils % 0.5 (0.0-0.4) % Absolute Granulocytes 2.24 (1.4-6.9) x10^3/uL Basophils # 0.02 (0-0.4) x10^3/uL Sodium 137 (137-145) mmol/L Potassium 3.7 (3.5-5.1) mmol/L Chloride 101 (98-107) mmol/L Carbon Dioxide 30 (22-30) mmol/L Anion Gap 9.4 (5-15) MEQ/L BUN 11 (9-20) mg/dL Creatinine 0.69 (0.66-1.25) mg/dL Estimated GFR > 60.0 ML/MIN Glucose 105 (74-106) mg/dL Calcium 9.1 (8.4-10.2) mg/dL Total Bilirubin 0.50 (0.2-1.3) mg/dL AST 52 (17-59) U/L ALT 43 (0-50) U/L Alkaline Phosphatase 73 (38-126) U/L Troponin I (0.000-0.034) ng/mL Serum Total Protein 7.1 (6.3-8.2) g/dL Albumin 4.1 (3.5-5.0) g/dL Triglycerides 247 H (30-150) mg/dL Cholesterol 239 H (50-200) mg/dL LDL Cholesterol 134 H (30-100) mg/dL HDL Cholesterol 57 (40-60) mg/dL Heart Disease Risk Ratio 4.2 Urine Opiates Level (NEGATIVE) Ur Methadone (NEGATIVE) Urine Barbiturates (NEGATIVE) Ur Phencyclidine (PCP) (NEGATIVE) Urine Amphetamine (NEGATIVE) U Benzodiazepine Level (NEGATIVE) Urine Cocaine (NEGATIVE) Urine Marijuana (THC) (NEGATIVE) - Radiology Exams Ordered Rad Exams-Entire Visit: Radiology Procedures Category Date Time Status ABDOMEN AND PELVIS W/0 CONTRAS [CT] Stat Exams 11/12/21 08:46 Completed CHEST 2 VIEWS (PA AND LAT) Stat Exams 11/12/21 08:36 Completed - Procedures and Test Procedures and Tests throughout Hospitalization: Therapy Orders & Screens 11/12/21 11:35 EKG Q8HX2,QAMX3,PRN Comment: 11/12/21 16:22 EKG ONCE Comment: Diagnosis: Chest pain 11/13/21 05:00 EKG ONCE Comment: Diagnosis: Chest pain 11/14/21 05:00 EKG ONCE Comment: Diagnosis: Chest pain 11/15/21 05:00 EKG ONCE Comment: Diagnosis: Chest pain Discharge Exam General Appearance: no apparent distress, alert Neurologic Exam: oriented x 3, cooperative Eye Exam: eyes nml inspection Ears, Nose, Throat Exam: moist mucous membranes Neck Exam: normal inspection Respiratory Exam: normal breath sounds, lungs clear, No crackles/rales, No rhonchi, No wheezing Cardiovascular Exam: regular rate/rhythm, normal heart sounds, No murmur Gastrointestinal/Abdomen Exam: soft, normal bowel sounds, No tenderness, No distention, No mass, No guarding, No rebound Back Exam: normal inspection, No rash Extremity Exam: normal inspection, No pedal edema, No swelling Skin Exam: normal color, warm, dry, No rash Final Diagnosis/Problem List - Final Discharge Diagnosis/Problem (1) Chest pain Current Visit: Yes Status: Resolved Assessment & Plan: [place] ruled out. Outpatient stress test. F/u with Dr. garcia on possible tx for hyperlipidemia. Code(s): R07.9 - CHEST PAIN, UNSPECIFIED (2) Alcoholism Current Visit: Yes Status: Chronic Assessment & Plan: Discussed with pt, he doesn't see any need to change his habits at this time. S ays, "thank goodness, my liver has been fine." Code(s): F10.20 - ALCOHOL DEPENDENCE, UNCOMPLICATED (3) Anxiety Current Visit: Yes Status: Chronic Code(s): F41.9 - ANXIETY DISORDER, UNSPECIFIED (4) Hypertension Current Visit: No Status: Chronic Code(s): I10 - ESSENTIAL (PRIMARY) HYPE RTENSION (5) Hyperlipidemia Current Visit: Yes Status: Chronic Code(s): E78.5 - HYPERLIPIDEMIA, UNSPECIF IED - Discharge Disposition: Home, Self-Care Condition: Good Prescriptions: Continue cloNIDine [Clonidine] 1 each TD DAILY Omeprazole 40 mg PO DAILY Aspirin EC 81 mg [Ecotrin 81 mg] 81 mg PO DAILY Sertraline HCl 50 mg [Zoloft 50 mg Tablet] 50 mg PO DAILY Metoprolol Succinate 25 mg Xl* [Toprol-Xl 25MG Tablets] 25 mg PO BID Follow up with: JOANNE GARCIA MD [Primary Care Provider] - 11/21/21 10:00 am Forms: Work/School Release Form
[2021-11-13] MEDS ORDERED: ECOTRIN 81 MG PO SCH (10:00)
[2021-11-13] MEDS ORDERED: Catapres-TTS 1 PATCH TD SCH (10:00)
[2021-11-13] MEDS ORDERED: NON-FORMULARY ITEM (Omeprazole [Omeprazole] 40 MG Capsule.Dr) PO SCH (10:00)
[2021-11-13] MEDS ORDERED: Protonix 40MG Tablet PO SCH (10:00)
[2021-11-13] MEDS ORDERED: ZOLOFT 50 MG TABLET PO SCH (10:00)
== END 2021-11-13 10:36 | disposition home or self-care (01) ==
LOC: ED 08:18 → MED SURG 11:28
PROVIDERS: ADMIT Family Medicine; ATTEND Family Medicine
DX: R07.9 Chest pain, unspecified (principal); F10.20 Alcohol dependence, uncomplicated; F41.9 Anxiety disorder, unspecified; I10 Essential (primary) hypertension; E78.5 Hyperlipidemia, unspecified; Z79.899 Other long term (current) drug therapy; Z20.828 Contact with and (suspected) exposure to other viral communicable diseases; Z72.0 Tobacco use
CPT/HCPCS: 36415; 71046; 74176; 80053; 80061; 80307; 82550; 82552; 83721; 83880; 84484; 85025; 85379; 93005; 93268; 99284; J2060; A9270-GY; G0378

== ENCOUNTER 2022-01-14 03:49 | Emergency (ER) | payer OTHER ==
[2022-01-14] MEDS ORDERED: TYLENOL EXTRA STRENGTH 500 MG PO STA (04:09)
[2022-01-14] MEDS ORDERED: TYLENOL EXTRA STRENGTH 500 MG ONE (04:11)
[2022-01-14] MEDS ORDERED: TORAdol 30 mg Injection IM ONE (05:59)
[2022-01-14] MEDS ORDERED: TORAdol 30 mg Injection ONE (06:01)
--- NOTE | 2022-01-14 06:14 | ERPHSYRPT ---
- History of Present Illness Time Seen by Provider: 01/14/22 05:59 Source: patient Exam Limitations: no limitations Patient Subjective Stated Complaint: pt states he was in bed on the top bunk in the [facility] where he lives, states he fell out of the top bunk and hurt left shoulder, head, l elbow, l knee and states pain is 10/10 all over. Triage Nursing Assessment: pt is alert and oriented x4. pt has two raised bumps on head, pain in l shoulder, pain and scrapes to l knee. Physician History: 56 years old incarcerated male is brought in the ER after he accidentally fell off off top bunk bed while asleep and hit his head, left elbow and knee against the ground. No loss of consciousness. Patient was able to get up and ambulate, complaining of pain in the knee elbow/shoulder, head and some discomfort on the chest as well. Range of motion intact with minimal pain. No difficulty breathing. Denies any visual disturbance, numbness tingling or focal weakness. Denies any neck pain or difficulty movements of neck. No abdominal pain nausea or vomiting. Occurred: just prior to arrival Injuries/Pain Location: head, upper extremity, chest, lower extremity Loss of Consciousness: no loss of consciousness Quality: sharpness Severity of Pain-Max: moderate Severity of Pain-Current: moderate Associated Symptoms (Fall): chest pain, extremity injury, headache, muscle spasms, No abdominal pain, No shortness of breath, No vomiting, No vision changes Allergies/Adverse Reactions: Penicillins Allergy (Mild, Verified 10/06/21 19:37) Home Medications: Aspirin EC 81 mg [Ecotrin 81 mg] 81 mg PO DAILY 11/12/21 [History] Metoprolol Succinate 25 mg Xl* [Toprol-Xl 25MG Tablets] 25 mg PO BID 11/12/21 [History] Omeprazole 40 mg PO DAILY 11/12/21 [History] Sertraline HCl 50 mg [Zoloft 50 mg Tablet] 50 mg PO DAILY 11/12/21 [History] cloNIDine [Clonidine] 1 each TD DAILY 11/12/21 [History] Hx Tetanus, Diphtheria Vaccination/Date Given: Yes Hx Influenza Vaccination/Date Given: No Hx Pneumococcal Vaccination/Date Given: No Travel Risk - International Travel Have you traveled outside of the country in past 3 weeks: No - Coronavirus Screening Are you exhibiting any of the following symptoms?: No Close contact with a COVID-19 positive Pt in past 14-21 Days: No - Vaccine Status Have you recieved a 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-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[employer]: [employer] - Vaccination Dates Comment: UNSURE OF EXACT DATE - Review of Systems Constitutional: No Symptoms Eyes: No Symptoms Ears, Nose, & Throat: No Symptoms Respiratory: No Symptoms Cardiac: Chest Pain Abdominal/Gastrointestinal: No Symptoms Genitourinary Symptoms: No Symptoms Musculoskeletal: Fall, Injury, Joint Pain, Myalgias, No Neck Pain Skin: No Symptoms Neurological: Headache Psychological: No Symptoms Endocrine: No Symptoms Hematologic/Lymphatic: No Symptoms Immunological/Allergic: No Symptoms - Past Medical History Pertinent Past Medical History: Yes Neurological History: No Pertinent History ENT History: No Pertinent History Cardiac History: Hypertension, Other Respiratory History: No Pertinent History Endocrine Medical History: No Pertinent History Musculoskeletal History: No Pertinent History GI Medical History: No Pertinent History History: No Pertinent History Psycho-Social History: Anxiety, Depression Male Reproductive Disorders: No Pertinent History Other Medical History: tendonitis rt arm. pericarditis - Past Surgical History Past Surgical History: Yes Neuro Surgical History: No Pertinent History Cardiac: No Pertinent History Respiratory: No Pertinent History Gastrointestinal: No Pertinent History Genitourinary: No Pertinent History Musculoskeletal: Amputation Male Surgical History: No Pertinent History Other Surgical History: left fifth finger amputation at [facility]. nose and sinus surgery - Social History Smoking Status: Current every day smoker How long have you smoked: 40 yrs Exposure to second hand smoke: Yes Drug Use: marijuana Patient Lives Alone: No Significant Family History: no pertinent family hx - Nursing Vital Signs Nursing Vital Signs: Initial Vital Signs Temperature 97.5 F 01/14/22 03:53 Pulse Rate 60 01/14/22 03:53 Respiratory Rate 18 01/14/22 03:53 Blood Pressure 192/98 01/14/22 03:53 O2 Sat by Pulse Oximetry 100 01/14/22 03:53 Pain Scale Pain Intensity 4 - Woodman Coma Score Best Eye Response (Woodman): (4) open spontaneously Best Verbal Response ([place]): (5) oriented Best Motor Response ([place]): (6) obeys commands [place] Total: 15 - Physical Exam General Appearance: no apparent distress, alert Head Injury: contusions (Left parietal/temporal area), swelling, tenderness, No lacerations, No raccoon eyes Eye Exam: PERRL/EOMI, eyes nml inspection ENT Exam: airway nml, No evidence of ENT injury, No dental injury Neck Exam: supple, trachea midline, full range of motion, normal alignment, normal inspection Respiratory/Chest Exam: chest tenderness (Minimal left lateral without crepitus or swelling.), normal breath sounds Cardiovascular Exam: normal heart sounds, regular rate/rhythm Gastrointestinal Exam: soft, normal bowel sounds, No tenderness Back Exam: normal inspection, normal range of motion, No CVA tenderness Extremity Exam: normal range of motion, tenderness (Abrasion left knee. Intact range of motion. No swelling. Bruise left elbow with no tenderness and normal range of motion.) Neurologic Exam: alert, oriented x 3, cooperative, operating room rn II-XII nml as tested Skin Exam: normal color SpO2 Interpretation: normal SpO2: 99 O2 Delivery: Room Air Ordered Tests: Active Orders 24 hr Category Date Time Status CERVICAL SPINE (2 OR 3 VIEW) Stat Exams 01/14/22 04:56 Taken CERVICAL SPINE WO CONTRAST [CT] Stat Exams 01/14/22 05:59 Taken CHEST 2 VIEWS (PA AND LAT) Stat Exams 01/14/22 04:56 Taken CHEST WITHOUT CONTRAST [CT] Stat Exams 01/14/22 05:59 Taken HEAD WITHOUT CONTRAST [CT] Stat Exams 01/14/22 04:13 Taken KNEE (1 OR 2 VIEW) Stat Exams 01/14/22 04:56 Taken Medication Summary Discontinued Medications Generic Name Dose Route Start Last Admin Trade Name Félix PRN Reason Stop Dose Admin Acetaminophen 1,000 mg 01/14/22 04:09 01/14/22 04:12 Acetaminophen 500 Mg Tablet PO 01/14/22 04:10 1,000 mg STAT STA Administration Acetaminophen Confirm 01/14/22 04:11 Acetaminophen 500 Mg Tablet Administered 01/14/22 04:12 Dose 500 mg .ROUTE .STK-MED ONE Ketorolac Tromethamine 30 mg 01/14/22 05:59 01/14/22 06:02 Ketorolac Tromethamine 30 Mg/Ml Inj IM 01/14/22 06:00 30 mg STAT ONE Administration Ketorolac Tromethamine Confirm 01/14/22 06:01 Ketorolac Tromethamine 30 Mg/Ml Inj Administered 01/14/22 06:02 Dose 30 mg .ROUTE .STK-MED ONE - Progress Progress: improved, re-examined Progress Note: 01/14/22 06:45 56-year-old is evaluated for fall with injury to the head, shoulder chest and knee. Is given symptomatic treatment with Tylenol and Toradol, on reevaluation feeling much better. CT head negative for any acute intracranial findings. No skull fracture. I believe he has contusion scalp. CT cervical spine negative. CT chest negative for any acute cardiopulmonary findings. X-ray is left knee negative reviewed by me, official report is pending. Recommended Tylenol/ibuprofen, intermittent ice application and outpatient follow-up. Discussed signs symptoms of worsening needing return to ER which he seems understanding. Counseled pt/family regarding: diagnosis, need for follow-up, rad results - Departure Departure Disposition: Home Clinical Impression: Scalp contusion, Contusion, chest wall, Knee abrasion Fall Qualifiers: Encounter type: initial encounter Qualified Code(s): W19.XXXA - Unspecified fall, initial encounter Condition: Stable Critical Care Time: No Referrals: JOANNE MARROQUIN MD [Primary Care Provider] - Follow up/PCP as directed (1-2 days for reevaluation) Instructions: Head Injury Observation (DC) Additional Instructions: Take Tylenol/ibuprofen as needed for pain. Follow head injury instructions and return to ER for any worsening. Prescriptions: Ibuprofen 600 mg PO Q6HPRN PRN 10 Days #20 tablet PRN Reason: Pain
[2022-01-14 06:26] VITALS: BP 148/95; PULSE 59
[2022-01-14 06:49] VITALS: O2SAT 99
--- NOTE | 2022-01-14 08:50 | XRAY ---
Indication: Posterior head injury following fall. Headache. Multiple contiguous axial images obtained through the head without contrast. Comparison: September 02, 2019 Age-appropriate global atrophy and minimal periventricular degenerative micro-ischemia bilaterally. No acute intracranial hemorrhage, abnormal extra-axial fluid collection, or mass effect. Fourth ventricle is midline without hydrocephalus. Pelaez-white matter differentiation preserved. New small left posterior scalp hematoma near the vertex. Bony calvarium intact. Visualized paranasal sinuses and mastoid air cells are clear. Impression: Left scalp hematoma. No underlying fracture or acute intracranial abnormalities. Atrophy and degenerative micro-ischemia within normal limits for patient's age. Comment: Preliminary interpretation made by [facility]. No critical discrepancy.
--- NOTE | 2022-01-14 08:52 | XRAY ---
Indication: Neck pain and stiffness following fall with head injury. Headache. Multiple contiguous axial images obtained through the cervical spine. Sagittal and coronal reformatted images obtained. Comparison: August 20, 2015 Axial images negative for acute fracture, suspicious bony lesions, or spinal canal stenosis. Again mild C5-C7 degenerative endplate spurring with now tiny vacuum disc phenomena. Progressive worsening mild multilevel bilateral degenerative facet arthropathy. Sagittal and coronal reformatted images again demonstrates normal alignment with C5-C7 disc space loss. No acute compression fracture, subluxation, or jumped facet. Normal appearing craniocervical junction. Visualized noncontrasted soft tissues unremarkable. CT chest reported separately. Impression: Again multilevel degenerative changes. Negative for acute fracture/subluxation. Comment: Preliminary interpretation made by [facility]. No critical discrepancy.
--- NOTE | 2022-01-14 08:54 | XRAY ---
Indication: Pain and stiffness following fall. Comparison: CT cervical spine August 20, 2015 3 view cervical spine again demonstrates normal alignment with moderate C5-C7 degenerative changes. No new/acute bony, articular, or soft tissue abnormalities.
--- NOTE | 2022-01-14 08:58 | XRAY ---
Indication: Pain following fall. Comparison: November 12, 2021 PA/lateral chest again demonstrates normal heart and lungs with incidental tiny right lung calcified granulomas. Bony thorax intact again with mild multilevel degenerative spondylosis and minimal dextroscoliosis. No new/acute findings.
--- NOTE | 2022-01-14 08:58 | XRAY ---
Indication: Left chest pain following fall. Multiple contiguous axial images obtained through the chest without contrast. Comparison: None Lungs are underinflated with a few tiny right lung calcified granulomas. No suspicious pulmonary mass, infiltrate, effusion, or pneumothorax. Heart not enlarged. Aorta is normal in course and caliber. Small right suprahilar calcified nodes. No pathologic mediastinal lymphadenopathy. Bony thorax intact with mild degenerative changes throughout the spine and minimal dextroscoliosis. Limited upper abdomen demonstrates at least 2 left lobe hepatic cysts/hemangiomas, largest 1.4 cm both unchanged with respect to CT abdomen/pelvis April 30, 2021. Impression: 1. Hepatic cysts/hemangiomas, chronic bony findings, and evidence for old granulomatous disease. 2. Remaining CT chest without contrast exam is negative. Comment: Preliminary interpretation made by [facility]. No critical discrepancy.
--- NOTE | 2022-01-14 08:59 | XRAY ---
Indication: Pain following fall. Comparison: None 2 view left knee demonstrates minimal medial joint space narrowing. No other bony, articular, or soft tissue abnormalities.
== END 2022-01-14 07:21 | disposition home or self-care (01) ==
LOC: ED 03:49 → EEVIPCON 03:49 → ED 07:21
DX: S00.03XA Contusion of scalp, initial encounter (principal); S20.212A Contusion of left front wall of thorax, initial encounter; S80.212A Abrasion, left knee, initial encounter; W06.XXXA Fall from bed, initial encounter; Y93.84 Activity, sleeping; Y92.143 Cell of prison as the place of occurrence of the external cause; R51.9 Headache, unspecified; M25.522 Pain in left elbow; I10 Essential (primary) hypertension; Z72.0 Tobacco use; Z79.899 Other long term (current) drug therapy
CPT/HCPCS: 70450; 71046; 71250; 72040; 72125; 73560; 96372; 99283; J1885; A9270-GY

== ENCOUNTER 2023-10-13 14:49 | Emergency (ER) | payer OTHER ==
--- NOTE | 2023-10-13 15:07 | ERPHSYRPT ---
- History of Present Illness Time Seen by Provider: 10/13/23 15:00 Historian: patient Exam Limitations: no limitations Physician History: This is a 58-year-old white male patient of Dr. Marroquin who presents with left anterior chest pain that he has had intermittently for the last few days and it was a worse today. It is localized and nonradiating. There are times when it is sharp at times when it is heavy and other times it has been tightness and described as a pressure. Patient states that he has not been compliant with his medications. He has not taken his medications in 3 to 4 days. Patient did state that he drank 4 beers prior to arrival to the emergency department today. He occasionally uses CBD Gummies. Patient has a history of hypertension and gastroesophageal reflux disease. Patient denies abdominal pain. He said no nausea vomiting or diarrhea symptoms. He does not have shortness of breath. Timing/Duration: day(s) (Present for 3 to 4 days), worse (Symptoms worse today) Quality: pressure, sharpness, tightness Location: other (Left anterior chest) Chest Pain Radiation: no radiation Severity of Pain-Max: mild (To moderate) Severity of Pain-Current: mild Modifying Factors: Improves With: nothing Associated Symptoms: other (Bilateral legs cramping) Prior Chest Pain/Cardiac Workup: no prior chest pain, no prior cardiac workup Nitro Today/Relief: no nitro taken today Aspirin Treatment Today: no aspirin today Allergies/Adverse Reactions: Penicillins Allergy (Mild, Verified 10/13/23 14:51) Home Medications: Aspirin EC 81 mg [Ecotrin 81 mg] 81 mg PO DAILY 11/12/21 [History] Metoprolol Succinate 25 mg Xl* [Toprol-Xl 25MG Tablets] 25 mg PO BID 11/12/21 [History] Omeprazole 40 mg PO DAILY 11/12/21 [History] Sertraline HCl 50 mg [Zoloft 50 mg Tablet] 50 mg PO DAILY 11/12/21 [History] cloNIDine [Clonidine] 1 each TD DAILY 11/12/21 [History] Hx Tetanus, Diphtheria Vaccination/Date Given: Yes Hx Influenza Vaccination/Date Given: No Hx Pneumococcal Vaccination/Date Given: No Travel Risk - International Travel Have you traveled outside of the country in past 3 weeks: No - Emerging Infectious Disease Are you exhibiting symptoms associated with any current EIDs: No - Review of Systems Constitutional: No Symptoms Eyes: No Symptoms Ears, Nose, & Throat: No Symptoms Respiratory: No Symptoms Cardiac: Chest Pain Abdominal/Gastrointestinal: No Symptoms Genitourinary Symptoms: No Symptoms Musculoskeletal: No Symptoms Skin: No Symptoms Neurological: No Symptoms Psychological: No Symptoms Endocrine: No Symptoms Hematologic/Lymphatic: No Symptoms Immunological/Allergic: No Symptoms All Other Systems: Reviewed and Negative - Past Medical History Pertinent Past Medical History: Yes Neurological History: No Pertinent History ENT History: No Pertinent History Cardiac History: Hypertension, Other Respiratory History: No Pertinent History Endocrine Medical History: No Pertinent History Musculoskeletal History: No Pertinent History GI Medical History: No Pertinent History History: No Pertinent History Psycho-Social History: Anxiety, Depression Male Reproductive Disorders: No Pertinent History Other Medical History: tendonitis rt arm. pericarditis - Past Surgical History Past Surgical History: Yes Neuro Surgical History: No Pertinent History Cardiac: No Pertinent History Respiratory: No Pertinent History Gastrointestinal: No Pertinent History Genitourinary: No Pertinent History Musculoskeletal: Amputation Male Surgical History: No Pertinent History Other Surgical History: left fifth finger amputation at [facility]. nose and sinus surgery Significant Family History: no pertinent family hx - Social History Smoking Status: Current every day smoker How long have you smoked: 40 yrs Exposure to second hand smoke: Yes Drug Use: marijuana Patient Lives Alone: No - Nursing Vital Signs Nursing Vital Signs: Initial Vital Signs Temperature 97.2 F 10/13/23 14:52 Pulse Rate 121 H 10/13/23 14:52 Respiratory Rate 24 10/13/23 14:52 Blood Pressure 170/117 10/13/23 14:52 O2 Sat by Pulse Oximetry 98 10/13/23 14:52 Pain Scale Pain Intensity 2 - Physical Exam General Appearance: no apparent distress, alert, anxiety, thin Eye Exam: PERRL/EOMI, eyes nml inspection Ears, Nose, Throat Exam: normal ENT inspection, moist mucous membranes Neck Exam: normal inspection, non-tender, supple, full range of motion Respiratory Exam: normal breath sounds, lungs clear, airway intact, No chest tenderness, No respiratory distress Cardiovascular Exam: tachycardia Gastrointestinal/Abdomen Exam: soft, normal bowel sounds, No tenderness Rectal Exam: not done Back Exam: normal inspection, normal range of motion, No CVA tenderness, No vertebral tenderness Extremity Exam: normal inspection, normal range of motion, pelvis stable Neurologic Exam: alert, oriented x 3, cooperative, bleach boiler filler II-XII nml as tested, nml cerebellar function, nml station & gait, sensation nml Skin Exam: normal color, warm, dry Lymphatic Exam: No adenopathy SpO2 Interpretation: normal O2 Delivery: Room Air - Course Nursing assessment & vital signs reviewed: Yes EKG Interpreted by Me: RATE ([id number]), Sinus Tach, NORMAL AXIS, NORMAL INTERVALS, NORMAL QRS, Non-specific ST Changes, Other (No acute ischemia on today's twelve- lead EKG.) Ordered Tests: Active Orders 24 hr Category Date Time Status It Trainee STAT Care 10/13/23 15:08 Active EKG-ER Only STAT Care 10/13/23 15:07 Active IV Insertion STAT Care 10/13/23 15:07 Active Pulse Oximetry (ED) STAT Care 10/13/23 15:07 Active CBC W DIFF Stat Lab 10/13/23 15:00 Completed CMP Stat Lab 10/13/23 15:00 Completed D-DIMER QUANTITATIVE Stat Lab 10/13/23 15:00 Completed ETHYL ALCOHOL Stat Lab 10/13/23 15:00 Completed MAGNESIUM Stat Lab 10/13/23 15:00 Completed NT PRO BNPII Stat Lab 10/13/23 15:00 Completed PROTIME WITH INR Stat Lab 10/13/23 15:00 Completed TROPONIN Q4H Lab 10/13/23 15:00 Completed TROPONIN Q4H Lab 10/13/23 19:15 Ordered TROPONIN Q4H Lab 10/13/23 23:15 Ordered UA W/RFX UR CULTURE Stat Lab 10/13/23 17:04 Completed Urine Triage Profile Stat Lab 10/13/23 17:04 Results Medication Summary Generic Name Dose Route Start Last Admin Trade Name Freq PRN Reason Stop Dose Admin Sodium Chloride 1,000 mls @ 999 mls/hr 10/13/23 17:16 10/13/23 17:22 Sodium Chloride 0.9% 1000 Ml IV 10/13/23 18:16 999 mls/hr .Q1H1M STA Administration Discontinued Medications Generic Name Dose Route Start Last Admin Trade Name Freq PRN Reason Stop Dose Admin Aspirin 324 mg 10/13/23 15:07 10/13/23 15:22 Aspirin 81 Mg Tab.Chew PO 10/13/23 15:08 324 mg STAT ONE Administration Aspirin Confirm 10/13/23 15:18 Aspirin 81 Mg Tab.Chew Administered 10/13/23 15:19 Dose 324 mg .ROUTE .STK-MED ONE Clonidine 0.1 mg 10/13/23 15:22 10/13/23 15:58 Clonidine Hcl 0.1 Mg Tablet PO 10/13/23 15:23 0.1 mg STAT ONE Administration Clonidine Confirm 10/13/23 15:29 Clonidine Hcl 0.1 Mg Tablet Administered 10/13/23 15:30 Dose 0.1 mg .ROUTE .STK-MED ONE Sodium Chloride Confirm 10/13/23 17:17 Sodium Chloride 0.9% 1000 Ml Administered 10/13/23 17:18 Dose 1,000 mls @ ud .ROUTE .STK-MED ONE Metoprolol Succinate 25 mg 10/13/23 15:22 10/13/23 15:57 Metoprolol Succinate 25 Mg Xl Tab PO 10/13/23 15:23 25 mg STAT ONE Administration Metoprolol Succinate Confirm 10/13/23 15:29 Metoprolol Succinate 25 Mg Xl Tab Administered 10/13/23 15:30 Dose 25 mg .ROUTE .STK-MED ONE Morphine Sulfate 2 mg 10/13/23 15:07 10/13/23 15:21 Morphine Sulfate 2 Mg/Ml Inj IV 10/13/23 15:08 2 mg STAT ONE Administration Morphine Sulfate Confirm 10/13/23 15:18 Morphine Sulfate 2 Mg/Ml Inj Administered 10/13/23 15:19 Dose 2 mg .ROUTE .STK-MED ONE Nitroglycerin 0.4 mg 10/13/23 15:07 10/13/23 15:21 Nitroglycerin 0.4 Mg (Ed) 0.4 Mg Tab.Subl SL 10/13/23 15:08 0.4 mg STAT ONE Administration Nitroglycerin Confirm 10/13/23 15:18 Nitroglycerin 0.4 Mg (Ed) 0.4 Mg Tab.Subl Administered 10/13/23 15:19 Dose 0.4 mg SL .STK-MED ONE Ondansetron HCl 4 mg 10/13/23 15:07 10/13/23 15:21 Ondansetron Hcl 4 Mg/2 Ml Vial IV 10/13/23 15:08 4 mg STAT ONE Administration Ondansetron HCl Confirm 10/13/23 15:17 Ondansetron Hcl 4 Mg/2 Ml Vial Administered 10/13/23 15:18 Dose 4 mg .ROUTE .STK-MED ONE Pantoprazole Sodium 40 mg 10/13/23 15:23 10/13/23 16:00 Pantoprazole 40 Mg Vial IV 10/13/23 15:24 40 mg STAT ONE Administration Pantoprazole Sodium Confirm 10/13/23 15:29 Pantoprazole 40 Mg Vial Administered 10/13/23 15:30 Dose 40 mg IV .STK-MED ONE Lab/Rad Data: Laboratory Result Diagrams 10/13/23 15:00 10/13/23 15:00 Laboratory Results 10/13/23 10/13/23 10/13/23 Range/Units 17:04 17:04 15:00 WBC (4.23-9.07) x10^3/uL RBC (4.63-6.08) x10^6/uL Hgb (13.7-17.5) g/dL Hct (40.1-51.0) % MCV (79.0-92.2) fL MCH (25.7-32.2) pg MCHC (32.3-36.5) g/dL RDW (11.6-14.4) % Plt Count (163-337) x10^3/uL MPV (9.4-12.4) fL Gran % (34.0-67.9) % Immature Gran % (Auto) (0.001-0.429) % Nucleat RBC Rel Count (0.00-0.2) % Eos # (Auto) (0.04-0.54) x10^3/uL Immature Gran # (Auto) (0.001-0.031) x10^3u/L Absolute Lymphs (auto) (1.32-3.57) x10^3/uL Absolute Monos (auto) (0.30-0.82) x10^3/uL Absolute Nucleated RBC (0.00-0.012) x10^3u/L Lymphocytes % (21.8-53.1) % Monocytes % (5.3-12.2) % Eosinophils % (0.8-7.0) % Basophils % (0.2-1.2) % Absolute Granulocytes (1.78-5.38) x10^3/uL Basophils # (0.01-0.08) x10^3/uL PT (9.4-12.5) SECONDS INR (0.8-3.0) D-Dimer (0.0-0.50) mg/L Sodium (135-145) mmol/L Potassium (3.5-5.1) mmol/L Chloride (98-107) mmol/L Carbon Dioxide (22-30) mmol/L Anion Gap (5-15) MEQ/L BUN (9-20) mg/dL Creatinine (0.66-1.25) mg/dL Estimated GFR ML/MIN Glucose (74-106) mg/dL Calcium (8.4-10.2) mg/dL Magnesium (1.6-2.3) mg/dL Total Bilirubin (0.2-1.3) mg/dL AST (17-59) U/L ALT (0-50) U/L Alkaline Phosphatase (38-126) U/L Troponin I (0.000-0.033) ng/mL NT-Pro-B Natriuret Pep (<300) pg/mL Serum Total Protein (6.3-8.2) g/dL Albumin (3.5-5.0) g/dL Urine Color Yellow (Yellow) Urine Appearance Clear (Clear) Urine pH 6.5 (4.6-8.0) Ur Specific [place] 1.010 (1.005-1.030) Urine Protein Negative (Negative) Urine Glucose (UA) 250 A (Negative) mg/dL Urine Ketones Negative (Negative) Urine Blood Negative (Negative) Urine Nitrite Negative (Negative) Urine Bilirubin Negative (Negative) Urine Urobilinogen 0.2 (0.2) mg/dL Ur Leukocyte Esterase Negative (Negative) U Hyaline Cast (Auto) NONE SEEN (0-2) /LPF Urine Microscopic RBC 0-2 (0-5) /HPF Urine Microscopic WBC 0-2 (0-5) /HPF Ur Epithelial Cells None Seen (None Seen) /HPF Urine Bacteria None Seen (None Seen) /HPF Urine Culture Reflexed NO (NO) Urine Opiates Level POSITIVE A (NEGATIVE) Ur Methadone Pending Urine Barbiturates NEGATIVE (NEGATIVE) Ur Phencyclidine (PCP) NEGATIVE (NEGATIVE) Urine Amphetamine NEGATIVE (NEGATIVE) U Benzodiazepine Level NEGATIVE (NEGATIVE) Urine Cocaine NEGATIVE (NEGATIVE) Urine Marijuana (THC) POSITIVE A (NEGATIVE) Ethyl Alcohol 217 H (0-10) mg/dL 10/13/23 10/13/23 10/13/23 Range/Units 15:00 15:00 15:00 WBC (4.23-9.07) x10^3/uL RBC (4.63-6.08) x10^6/uL Hgb (13.7-17.5) g/dL Hct (40.1-51.0) % MCV (79.0-92.2) fL MCH (25.7-32.2) pg MCHC (32.3-36.5) g/dL RDW (11.6-14.4) % Plt Count (163-337) x10^3/uL MPV (9.4-12.4) fL Gran % (34.0-67.9) % Immature Gran % (Auto) (0.001-0.429) % Nucleat RBC Rel Count (0.00-0.2) % Eos # (Auto) (0.04-0.54) x10^3/uL Immature Gran # (Auto) (0.001-0.031) x10^3u/L Absolute Lymphs (auto) (1.32-3.57) x10^3/uL Absolute Monos (auto) (0.30-0.82) x10^3/uL Absolute Nucleated RBC (0.00-0.012) x10^3u/L Lymphocytes % (21.8-53.1) % Monocytes % (5.3-12.2) % Eosinophils % (0.8-7.0) % Basophils % (0.2-1.2) % Absolute Granulocytes (1.78-5.38) x10^3/uL Basophils # (0.01-0.08) x10^3/uL PT 9.7 (9.4-12.5) SECONDS INR 0.88 (0.8-3.0) D-Dimer 0.44 (0.0-0.50) mg/L Sodium 139 (135-145) mmol/L Potassium 3.6 (3.5-5.1) mmol/L Chloride 101 (98-107) mmol/L Carbon Dioxide 19 L (22-30) mmol/L Anion Gap 22.1 H (5-15) MEQ/L BUN 4 L (9-20) mg/dL Creatinine 0.61 L (0.66-1.25) mg/dL Estimated GFR 112.7 ML/MIN Glucose 245 H (74-106) mg/dL Calcium 9.4 (8.4-10.2) mg/dL Magnesium 2.1 (1.6-2.3) mg/dL Total Bilirubin 0.40 (0.2-1.3) mg/dL AST 141 H (17-59) U/L ALT 114 H (0-50) U/L Alkaline Phosphatase 79 (38-126) U/L Troponin I < 0.012 (0.000-0.033) ng/mL NT-Pro-B Natriuret Pep < 20.0 (<300) pg/mL Serum Total Protein 8.1 (6.3-8.2) g/dL Albumin 4.8 (3.5-5.0) g/dL Urine Color (Yellow) Urine Appearance (Clear) Urine pH (4.6-8.0) Ur Specific [place] (1.005-1.030) Urine Protein (Negative) Urine Glucose (UA) (Negative) mg/dL Urine Ketones (Negative) Urine Blood (Negative) Urine Nitrite (Negative) Urine Bilirubin (Negative) Urine Urobilinogen (0.2) mg/dL Ur Leukocyte Esterase (Negative) U Hyaline Cast (Auto) (0-2) /LPF Urine Microscopic RBC (0-5) /HPF Urine Microscopic WBC (0-5) /HPF Ur Epithelial Cells (None Seen) /HPF Urine Bacteria (None Seen) /HPF Urine Culture Reflexed (NO) Urine Opiates Level (NEGATIVE) Ur Methadone Urine Barbiturates (NEGATIVE) Ur Phencyclidine (PCP) (NEGATIVE) Urine Amphetamine (NEGATIVE) U Benzodiazepine Level (NEGATIVE) Urine Cocaine (NEGATIVE) Urine Marijuana (THC) (NEGATIVE) Ethyl Alcohol (0-10) mg/dL 10/13/23 Range/Units 15:00 WBC 5.4 (4.23-9.07) x10^3/uL RBC 4.27 L (4.63-6.08) x10^6/uL Hgb 13.7 (13.7-17.5) g/dL Hct 40.5 (40.1-51.0) % MCV 94.8 H (79.0-92.2) fL MCH 32.1 (25.7-32.2) pg MCHC 33.8 (32.3-36.5) g/dL RDW 14.7 H (11.6-14.4) % Plt Count 278 (163-337) x10^3/uL MPV 8.8 L (9.4-12.4) fL Gran % 64.1 (34.0-67.9) % Immature Gran % (Auto) 0.2 (0.001-0.429) % Nucleat RBC Rel Count 0.0 (0.00-0.2) % Eos # (Auto) 0.07 (0.04-0.54) x10^3/uL Immature Gran # (Auto) 0.01 (0.001-0.031) x10^3u/L Absolute Lymphs (auto) 1.39 (1.32-3.57) x10^3/uL Absolute Monos (auto) 0.44 (0.30-0.82) x10^3/uL Absolute Nucleated RBC 0.00 (0.00-0.012) x10^3u/L Lymphocytes % 25.6 (21.8-53.1) % Monocytes % 8.1 (5.3-12.2) % Eosinophils % 1.3 (0.8-7.0) % Basophils % 0.7 (0.2-1.2) % Absolute Granulocytes 3.47 (1.78-5.38) x10^3/uL Basophils # 0.04 (0.01-0.08) x10^3/uL PT (9.4-12.5) SECONDS INR (0.8-3.0) D-Dimer (0.0-0.50) mg/L Sodium (135-145) mmol/L Potassium (3.5-5.1) mmol/L Chloride (98-107) mmol/L Carbon Dioxide (22-30) mmol/L Anion Gap (5-15) MEQ/L BUN (9-20) mg/dL Creatinine (0.66-1.25) mg/dL Estimated GFR ML/MIN Glucose (74-106) mg/dL Calcium (8.4-10.2) mg/dL Magnesium (1.6-2.3) mg/dL Total Bilirubin (0.2-1.3) mg/dL AST (17-59) U/L ALT (0-50) U/L Alkaline Phosphatase (38-126) U/L Troponin I (0.000-0.033) ng/mL NT-Pro-B Natriuret Pep (<300) pg/mL Serum Total Protein (6.3-8.2) g/dL Albumin (3.5-5.0) g/dL Urine Color (Yellow) Urine Appearance (Clear) Urine pH (4.6-8.0) Ur Specific [place] (1.005-1.030) Urine Protein (Negative) Urine Glucose (UA) (Negative) mg/dL Urine Ketones (Negative) Urine Blood (Negative) Urine Nitrite (Negative) Urine Bilirubin (Negative) Urine Urobilinogen (0.2) mg/dL Ur Leukocyte Esterase (Negative) U Hyaline Cast (Auto) (0-2) /LPF Urine Microscopic RBC (0-5) /HPF Urine Microscopic WBC (0-5) /HPF Ur Epithelial Cells (None Seen) /HPF Urine Bacteria (None Seen) /HPF Urine Culture Reflexed (NO) Urine Opiates Level (NEGATIVE) Ur Methadone Urine Barbiturates (NEGATIVE) Ur Phencyclidine (PCP) (NEGATIVE) Urine Amphetamine (NEGATIVE) U Benzodiazepine Level (NEGATIVE) Urine Cocaine (NEGATIVE) Urine Marijuana (THC) (NEGATIVE) Ethyl Alcohol (0-10) mg/dL - Progress Progress: improved, re-examined Air Movement: good Progress Note: 10/13/23 15:28 My medical decision making in the assignment of moderate complexity to this patient's medical issue today is based on review of the patient's past medical history, review the patient's medication list, reviewed patient drug allergy list, history of present illness and physical findings on examination. The work up today includes placement of intravenous line, alcohol level, urine triage level, CBC, CMP, twelve-lead EKG, BNP, D-dimer level, troponin level, magnesium level and twelve-lead EKG. Differential diagnosis includes but is not limited to myocardial infarction, arrhythmia, electrolyte abnormalities, medication noncompliance, illicit drug use 10/13/23 17:36 Interpreted the patient's laboratory data results. Based on the patient's laboratory data results, the patient is positive for alcohol intoxication. He also was positive for marijuana use. Patient, symptomatically, is improved. He denies chest pain at this time. His heart rate is now normal sinus rhythm on the monitor. He has a normal D-dimer level and a normal troponin level. Blood Culture(s) Obtained: No Antibiotics given: No Counseled pt/family regarding: lab results, diagnosis, need for follow-up, rad results Medical Desision Making - Diagnostic Testing Diagnostic test were ordered, analyzed, and reviewed by me: Yes - Risk of complications Low Risk: Low risk of morbidity from additional dx testing or treatment - Departure Departure Disposition: Home Clinical Impression: Nonspecific chest pain, Noncompliance, Alcohol intoxication Condition: Stable Critical Care Time: No Referrals: JOANNE MARROQUIN MD [Primary Care Provider] - Follow up/PCP as directed Additional Instructions: Drink plenty of nonalcoholic clear liquids before advancing your diet. Make certain you are taking your medications as prescribed. Call your primary care provider tomorrow, 10/14/2023, to make arrangements for follow-up appointment for further evaluation and management.
[2023-10-13 15:14] VITALS: TEMP 97.2
[2023-10-13 15:15] LABS: Absolute Neutrophil Ct (ANC) 3.47 x10^3/uL (1.78-5.38); BASOPHIL % 0.7 % (0.2-1.2); Basophil (Absolute #) 0.04 x10^3/uL (0.01-0.08); Eosinophil % 1.3 % (0.8-7.0); Eosinophil (Absolute #) 0.07 x10^3/uL (0.04-0.54); Hematocrit 40.5 % (40.1-51.0); Hemoglobin 13.7 g/dL (13.7-17.5); IMMATURE GRAN # 0.01 x10^3u/L (0.001-0.031); IMMATURE GRAN % 0.2 % (0.001-0.429); Lymphocyte (Absolute #) 1.39 x10^3/uL (1.32-3.57); Lymphocytes % 25.6 % (21.8-53.1); Mean Cell Volume 94.8 fL (79.0-92.2); Mean Corpuscular Hemoglobin 32.1 pg (25.7-32.2); Mean Corpuscular Hgb Concent. 33.8 g/dL (32.3-36.5); Mean Platelet Volume 8.8 fL (9.4-12.4); Monocyte (Absolute #) 0.44 x10^3/uL (0.30-0.82); Monocytes % 8.1 % (5.3-12.2); Neutrophil % 64.1 % (34.0-67.9); Platelet Count 278 x10^3/uL (163-337); Red Blood Count 4.27 x10^6/uL (4.63-6.08); Red Cell Distribution Width 14.7 % (11.6-14.4); White Blood Count 5.4 x10^3/uL (4.23-9.07)
[2023-10-13] MEDS ORDERED: Zofran 4 MG/2 ML VIAL ONE (15:17)
[2023-10-13] MEDS ORDERED: BABY ASPIRIN 81 MG CHEW ONE (15:18)
[2023-10-13] MEDS ORDERED: MORPHINE SULFATE 2 MG INJ ONE (15:18)
[2023-10-13] MEDS ORDERED: Nitrostat 0.4 MG (ED) SL ONE (15:18)
[2023-10-13] MEDS: Nitrostat 0.4 MG (ED) SL ONE (15:21)
[2023-10-13] MEDS: Zofran 4 MG/2 ML VIAL IV ONE (15:21)
[2023-10-13] MEDS: MORPHINE SULFATE 2 MG INJ IV ONE (15:21)
[2023-10-13] MEDS: BABY ASPIRIN 81 MG CHEW PO ONE (15:22)
[2023-10-13] MEDS ORDERED: Toprol-Xl 25MG Tablets ONE (15:29)
[2023-10-13] MEDS ORDERED: PROTONIX 40 MG IV IV ONE (15:29)
[2023-10-13] MEDS ORDERED: CLONIDINE 0.1 MG TABLET ONE (15:29)
[2023-10-13 15:32] LABS: D-DIMER QUANTITATIVE 0.44 mg/L (0.0-0.50); INR 0.88 (0.8-3.0); PROTIME 9.7 SECONDS (9.4-12.5)
[2023-10-13 15:41] LABS: ALBUMIN 4.8 g/dL (3.5-5.0); ALKALINE PHOSPHATASE 79 U/L (38-126); ANION GAP 22.1 MEQ/L (5-15); BLOOD UREA NITROGEN 4 mg/dL (9-20); CHLORIDE 101 mmol/L (98-107); Calcium 9.4 mg/dL (8.4-10.2); Carbon Dioxide 19 mmol/L (22-30); Creatinine 1 0.61 mg/dL (0.66-1.25); EST GLOMERULAR FILTRATION RATE 112.7 ML/MIN; Glucose 245 mg/dL (74-106); MAGNESIUM 2.1 mg/dL (1.6-2.3); NT PRO BNPII < 20.0 pg/mL (<300); Potassium 3.6 mmol/L (3.5-5.1); SGOT/AST 141 U/L (17-59); SGPT/ALT 114 U/L (0-50); SODIUM 139 mmol/L (135-145); Total Protein 8.1 g/dL (6.3-8.2)
[2023-10-13] MEDS: Toprol-Xl 25MG Tablets PO ONE (15:57)
[2023-10-13] MEDS: CLONIDINE 0.1 MG TABLET PO ONE (15:58)
[2023-10-13] MEDS: PROTONIX 40 MG IV IV ONE (16:00)
[2023-10-13] MEDS ORDERED: Sodium Chloride 0.9% 1000 ML 1,000 ML ONE (17:17)
[2023-10-13 17:18] LABS: Appearance Clear (Clear); Bacteria None Seen /HPF (None Seen); Bilirubin Negative (Negative); Blood Negative (Negative); Epithelial Cells None Seen /HPF (None Seen); Glucose, Urine 250 mg/dL (Negative); Hyaline Casts NONE SEEN /LPF (0-2); Ketones Negative (Negative); Leukocyte Esterase Negative (Negative); Nitrite Negative (Negative); Ph 6.5 (4.6-8.0); Protein,Urine Dip Negative (Negative); RBC 0-2 /HPF (0-5); Urobilinogen 0.2 mg/dL (0.2); WBC 0-2 /HPF (0-5)
[2023-10-13 17:22] LABS: ADD URINE CULTURE? NO (NO)
[2023-10-13] MEDS: Sodium Chloride 0.9% 1000 ML 1,000 ML IV STA (17:22)
[2023-10-13 17:27] LABS: Amphetamine,Urine NEGATIVE (NEGATIVE); Barbiturate,Urine NEGATIVE (NEGATIVE); Benzodiazepine,Urine NEGATIVE (NEGATIVE); Cocaine,Urine NEGATIVE (NEGATIVE); Opiate,Urine POSITIVE (NEGATIVE); PCP,Urine NEGATIVE (NEGATIVE); THC,Urine POSITIVE (NEGATIVE)
[2023-10-13 17:33] LABS: Methadone,Urine NEGATIVE (NEGATIVE)
[2023-10-13 18:24] VITALS: BP 122/86; PULSE 93; RESP 15; O2SAT 94
== END 2023-10-13 18:32 | disposition home or self-care (01) ==
LOC: ED 14:49
DX: R07.9 Chest pain, unspecified (principal); Z91.148 Patient's other noncompliance with medication regimen for other reason; F10.129 Alcohol abuse with intoxication, unspecified; Y90.7 Blood alcohol level of 200-239 mg/100 ml; I10 Essential (primary) hypertension; Z79.899 Other long term (current) drug therapy; Z72.0 Tobacco use
CPT/HCPCS: 36000; 36415; 80053; 80307; 81001; 82077; 83735; 83880; 84484; 85025; 85379; 85610; 93005; 93041; 94760; 96360; 96374; 96375; 99284; J2270; J2405; A9270-GY

== ENCOUNTER 2024-05-12 17:34 | Emergency (ER) | payer BC, OTHER ==
[2024-05-12 17:49] VITALS: TEMP 97.1
--- NOTE | 2024-05-12 17:52 | ERPHSYRPT ---
- History of Present Illness Time Seen by Provider: 05/12/24 17:52 Historian: patient Exam Limitations: no limitations Patient Subjective Stated Complaint: Pt states "I have not gone to the restroom in two weeks." Triage Nursing Assessment: Pt presnted alert and oriented X 3, skin pwd. Pt ambulates with an upright steady gait, pt able to speak in clear full sentences. Pt resting comfortably on the bed. Physician History: This is a 59-year-old white male patient of Dr. Marroquin who arrives by private vehicle with a complaint of constipation for over 2 weeks. Patient states he has passed flatus and liquid stool but no firm bowel movement. Patient states that a month ago he weighed 157 pounds. Today, at our facility, his weight was 141 pounds. Patient states that his weight fluctuates readily. He has had no nausea or vomiting symptoms. He denies chest pain. He denies shortness of breath. He has never had a colonoscopy. He is not on any narcotics. He has not been seen by his primary care provider in the last 2 weeks but he did contact them by phone. Patient has a history of hypertension, gastroesophageal reflux disease, anxiety/depression. Timing/Duration: week(s) (Over 2 weeks) Quality: cramping (Mild diffuse) Abdominal Pain Onset Location: generalized abdomen Pain Radiation: no radiation Severity of Pain-Max: mild Severity of Pain-Current: mild Modifying Factors: Improves With: nothing Associated Symptoms: other (Weight loss and constipation) Previous symptoms: no prior history, no recent treatment Allergies/Adverse Reactions: Penicillins Allergy (Mild, Verified 10/13/23 14:51) Home Medications: Aspirin EC 81 mg [Ecotrin 81 mg] 81 mg PO DAILY 11/12/21 [History] Metoprolol Succinate 25 mg Xl* [Toprol-Xl 25MG Tablets] 25 mg PO BID 11/12/21 [History] Omeprazole 40 mg PO DAILY 11/12/21 [History] Sertraline HCl 50 mg [Zoloft 50 mg Tablet] 50 mg PO DAILY 11/12/21 [History] cloNIDine [Clonidine] 1 each TD DAILY 11/12/21 [History] Buspirone HCl 5 mg [Buspar 5 mg] 10 mg PO DAILY 05/12/24 [History] Hx Tetanus, Diphtheria Vaccination/Date Given: Yes Hx Influenza Vaccination/Date Given: No Hx Pneumococcal Vaccination/Date Given: No Immunizations Up to Date: No Travel Risk - International Travel Have you traveled outside of the country in past 3 weeks: No - Emerging Infectious Disease Are you exhibiting symptoms associated with any current EIDs: Yes Symptoms: Abdominal Pain - Review of Systems Constitutional: No Symptoms Eyes: No Symptoms Ears, Nose, & Throat: No Symptoms Respiratory: No Symptoms Cardiac: No Symptoms Abdominal/Gastrointestinal: Abdominal Pain (Mild diffuse), Constipation Genitourinary Symptoms: No Symptoms Musculoskeletal: No Symptoms Skin: No Symptoms Neurological: No Symptoms Psychological: No Symptoms Endocrine: No Symptoms Hematologic/Lymphatic: No Symptoms Immunological/Allergic: No Symptoms All Other Systems: Reviewed and Negative - Past Medical History Pertinent Past Medical History: Yes Neurological History: No Pertinent History ENT History: No Pertinent History Cardiac History: Hypertension, Other Respiratory History: No Pertinent History Endocrine Medical History: No Pertinent History Musculoskeletal History: No Pertinent History GI Medical History: No Pertinent History History: No Pertinent History Psycho-Social History: Anxiety, Depression Male Reproductive Disorders: No Pertinent History Other Medical History: tendonitis rt arm. pericarditis - Past Surgical History Past Surgical History: Yes Neuro Surgical History: No Pertinent History Cardiac: No Pertinent History Respiratory: No Pertinent History Gastrointestinal: No Pertinent History Genitourinary: No Pertinent History Musculoskeletal: Amputation Male Surgical History: No Pertinent History Other Surgical History: left fifth finger amputation at [facility]. nose and sinus surgery Significant Family History: no pertinent family hx - Social History Smoking Status: Current every day smoker How long have you smoked: 40 yrs Exposure to second hand smoke: Yes Drug Use: none - Social Determinants of Health Will the patient participate in the screening: Declined to provide - Nursing Vital Signs Nursing Vital Signs: Initial Vital Signs Temperature 97.1 F 05/12/24 17:44 Pulse Rate 116 H 05/12/24 17:44 Respiratory Rate 20 05/12/24 17:44 Blood Pressure 162/109 05/12/24 17:44 O2 Sat by Pulse Oximetry 99 05/12/24 17:44 Pain Scale Pain Intensity 2 - Physical Exam General Appearance: no apparent distress, alert, anxiety, thin Eye Exam: PERRL/EOMI, eyes nml inspection Ears, Nose, Throat Exam: normal ENT inspection, moist mucous membranes Neck Exam: normal inspection, non-tender, supple, full range of motion Respiratory Exam: normal breath sounds, lungs clear, airway intact, No chest tenderness, No respiratory distress Cardiovascular Exam: regular rate/rhythm, normal heart sounds, normal peripheral pulses Gastrointestinal/Abdomen Exam: soft, normal bowel sounds, tenderness (Mild diffuse to palpation), guarding (Mild diffuse to palpation), No rebound Rectal Exam: not done Back Exam: normal inspection, normal range of motion, No CVA tenderness, No vertebral tenderness Extremity Exam: normal inspection, normal range of motion, pelvis stable Neurologic Exam: alert, oriented x 3, cooperative, validation intern II-XII nml as tested, nml cerebellar function, nml station & gait, sensation nml Skin Exam: normal color, warm, dry Lymphatic Exam: No adenopathy SpO2 Interpretation: normal SpO2: 99 O2 Delivery: Room Air - Course Nursing assessment & vital signs reviewed: Yes Ordered Tests: Active Orders 24 hr Category Date Time Status ABDOMEN AND PELVIS W/0 CONTRAS [CT] Stat Exams 05/12/24 18:20 Taken - Progress Progress: unchanged, re-examined Progress Note: 05/12/24 18:18 My medical decision making and the assignment of moderate complexity to this patient's medical issue today is based on review of the patient's past medical history, review the patient's medication list, reviewed patient drug allergy list, history present illness and physical findings on examination. The recommended workup in this patient includes placement of intravenous line, CBC, CMP, PT/INR, urinalysis, CT scan of the abdomen and pelvis without contrast. However, the patient refuses the recommended workup and agrees only to the CT scan of the abdomen pelvis without contrast. He will sign refusal of treatment/care. Differential diagnosis includes but is not limited to pancreatitis, colitis, diverticulitis, bowel obstruction, intestinal tumor 05/12/24 21:[address] scan of the abdomen pelvis without contrast was interpreted by the radiologist and I reviewed the impression. The impression states fatty liver with markedly distended urinary bladder. No acute findings. I discussed the findings on the CT scan of the abdomen pelvis with the patient. I offered a straight catheterization to help in reducing the bladder distention and sending the urine to the lab to determine if there is a urinary tract infection. He refuses. He will follow-up with his primary care provider tomorrow morning by phone. 05/12/24 21:10 Counseled pt/family regarding: need for follow-up, rad results Medical Desision Making - Diagnostic Testing Diagnostic test were ordered, analyzed, and reviewed by me: Yes Radiological Interpretation: Reviewed by me, Teleradiologist Report - Risk of complications Low Risk: Low risk of morbidity from additional dx testing or treatment - Departure Departure Disposition: Home Clinical Impression: Constipation, Distended bladder Condition: Stable Critical Care Time: No Referrals: JOANNE MARROQUIN MD [Primary Care Provider] - Follow up/PCP as directed Additional Instructions: Take all your medications as prescribed. Call your primary care provider tomorrow, 05/13/2024, to make arrangements for follow-up appointment to be seen in the next 2 to 3 days and to make arrangements for outpatient colonoscopy and an appointment to see a urologist.
[2024-05-12 21:10] VITALS: O2SAT 99
[2024-05-12 21:14] VITALS: BP 132/95; PULSE 94; RESP 21
--- NOTE | 2024-05-13 08:45 | XRAY ---
Indication: Constipation 2 weeks. Multiple contiguous axial images obtained through the abdomen and pelvis without contrast. Comparison: November 12, 2021 Lung bases remain clear. Heart not enlarged. Noncontrasted stomach and bowel loops appear nonobstructed. Normal appendix. Little to no scattered colonic fecal debris. New markedly distended urinary bladder concerning for neurogenic bladder versus outlet obstruction. Also new fatty liver. Stable small left renal cyst. No free fluid/air. Remaining liver, gallbladder, pancreas, spleen, adrenal glands, kidneys, ureters, bladder, and aorta are unremarkable for noncontrast exam. Osseous structures intact again with mild/moderate multilevel degenerative changes again greatest at L5-S1. Impression: 1. Markedly distended urinary bladder. Rule out neurogenic bladder versus outlet obstruction. 2. New fatty liver. 3. Stable chronic findings including left renal cyst and multilevel degenerative spondylosis.
== END 2024-05-12 21:38 | disposition home or self-care (01) ==
LOC: ED 17:34
DX: K59.00 Constipation, unspecified (principal); N32.89 Other specified disorders of bladder; I10 Essential (primary) hypertension; Z79.899 Other long term (current) drug therapy; Z72.0 Tobacco use
CPT/HCPCS: 74176; 99283; 99284

== ENCOUNTER 2024-12-18 15:37 | Emergency (ER) | payer OTHER ==
--- NOTE | 2024-12-18 15:42 | ERPHSYRPT ---
- History of Present Illness Time Seen by Provider: 12/18/24 15:41 Source: patient, EMS, old records Physician History: This is a 59-year-old white male patient who arrives by the paramedics because of seizure breakthrough. Patient does admit to consuming alcohol. He primarily drinks beer. He is a patient of Dr. Marroquin. Patient does have a history of seizure disorder. He admits he is not compliant with his medications. Patient did not soil himself with stool or urine. He does not have shortness of breath. He does not have chest pain. He denies abdominal pain. Timing/Duration: today Severity: mild Character of Deficits: none Deficits: no difficulties Baseline/Normal Cognition: alert oriented x 3 Current Cognition: alert oriented x 3 Baseline Gait: walks w/o assistance Associated Symptoms: weakness (Mild), seizures, No loss of consciousness, No nausea, No vomiting, No vision changes, No chest pain Allergies/Adverse Reactions: Penicillins Allergy (Mild, Verified 12/18/24 15:56) Home Medications: Metoprolol Succinate 25 mg Xl* [Toprol-Xl 25MG Tablets] 25 mg PO BID 11/12/21 [History] Omeprazole 40 mg PO DAILY 11/12/21 [History] cloNIDine [Clonidine] 1 each TD DAILY 11/12/21 [History] Buspirone HCl 5 mg [Buspar 5 mg] 10 mg PO DAILY 05/12/24 [History] Atomoxetine HCl 60 mg PO DAILY 07/06/24 [History] Divalproex Sodium 125 mg PO QID 07/06/24 [History] Tamsulosin HCl 0.4 mg PO DAILY 07/06/24 [History] Hx Tetanus, Diphtheria Vaccination/Date Given: Yes Hx Influenza Vaccination/Date Given: No Hx Pneumococcal Vaccination/Date Given: No Travel Risk - International Travel Have you traveled outside of the country in past 3 weeks: No - Emerging Infectious Disease Are you exhibiting symptoms associated with any current EIDs: No Symptoms: Abdominal Pain - Review of Systems Constitutional: Weakness Eyes: No Symptoms (Mild generalized) Ears, Nose, & Throat: No Symptoms Respiratory: No Symptoms Cardiac: No Symptoms Abdominal/Gastrointestinal: No Symptoms Genitourinary Symptoms: No Symptoms Musculoskeletal: No Symptoms Skin: No Symptoms Neurological: Seizure (Seizure breakthrough prior to arrival symptoms resolved) Psychological: No Symptoms Endocrine: No Symptoms Hematologic/Lymphatic: No Symptoms Immunological/Allergic: No Symptoms All Other Systems: Reviewed and Negative - Past Medical History Pertinent Past Medical History: Yes Neurological History: Seizures ENT History: No Pertinent History Cardiac History: Hypertension, Other Respiratory History: No Pertinent History Endocrine Medical History: No Pertinent History Musculoskeletal History: No Pertinent History GI Medical History: No Pertinent History History: No Pertinent History Psycho-Social History: Anxiety, Depression Male Reproductive Disorders: No Pertinent History Other Medical History: tendonitis rt arm. pericarditis - Past Surgical History Past Surgical History: Yes Neuro Surgical History: No Pertinent History Cardiac: No Pertinent History Respiratory: No Pertinent History Gastrointestinal: No Pertinent History Genitourinary: No Pertinent History Musculoskeletal: Amputation Male Surgical History: No Pertinent History Other Surgical History: left fifth finger amputation at [facility]. nose and sinus surgery Significant Family History: no pertinent family hx - Social History Smoking Status: Current some day smoker How long have you smoked: 40 yrs Exposure to second hand smoke: Yes Drug Use: none - Social Determinants of Health Will the patient participate in the screening: Declined to provide - Nursing Vital Signs Nursing Vital Signs: Initial Vital Signs Temperature 97.5 F 12/18/24 15:40 Pulse Rate 69 12/18/24 15:40 Blood Pressure 136/86 12/18/24 15:40 O2 Sat by Pulse Oximetry 98 12/18/24 15:40 Pain Scale Pain Intensity 0 - [place] Coma Scale Best Eye Response ([place]): (4) open spontaneously Best Verbal Response ([place]): (5) oriented Best Motor Response ([place]): (6) obeys commands [place] Total: 15 - Physical Exam General Appearance: no apparent distress, alert, anxiety, thin Eye Exam: bilateral eye: normal inspection, PERRL, EOMI Ears, Nose, Throat Exam: normal ENT inspection, moist mucous membranes Neck Exam: normal inspection, non-tender, supple, full range of motion Respiratory: normal breath sounds, lungs clear, airway intact, No chest tenderness, No respiratory distress Cardiovascular: regular rate/rhythm, normal heart sounds, normal peripheral pulses Gastrointestinal: soft, normal bowel sounds, No tenderness Rectal Exam: not done Back Exam: normal inspection, normal range of motion, No CVA tenderness, No vertebral tenderness Extremity Exam: normal inspection, normal range of motion, pelvis stable Mental Status: alert, oriented x 3, cooperative stone carver Exam: normal hearing, normal speech, PERRL Coordination/Gait: normal gait, normal cerebellar function Motor/Sensory: no motor deficit, no sensory deficit Skin Exam: normal color, warm, dry SpO2 Interpretation: normal O2 Delivery: Room Air - Course Nursing assessment & vital signs reviewed: Yes EKG Interpreted by Me: RATE (79), Sinus Rhythm, NORMAL AXIS, NORMAL INTERVALS, NORMAL QRS, Other (No acute ischemic changes on today's twelve-lead EKG) Ordered Tests: Active Orders 24 hr Category Date Time Status Crane Oiler STAT Care 12/18/24 16:23 Active EKG-ER Only STAT Care 12/18/24 16:21 Active IV Insertion STAT Care 12/18/24 16:21 Active POCT Glucose Check STAT Care 12/18/24 16:21 Completed Pulse Oximetry (ED) STAT Care 12/18/24 16:21 Active Seizure Precautions -SCCHED STAT Care 12/18/24 16:21 Active HEAD WITHOUT CONTRAST [CT] Stat Exams 12/18/24 16:22 Completed CBC W DIFF Stat Lab 12/18/24 16:45 Completed CMP Stat Lab 12/18/24 16:45 Completed ETHYL ALCOHOL Stat Lab 12/18/24 18:35 Ordered UA W/RFX UR CULTURE Stat Lab 12/18/24 17:20 Completed Urine Triage Profile Stat Lab 12/18/24 17:20 Completed Medication Summary Discontinued Medications Generic Name Dose Route Start Last Admin Trade Name Félix PRN Reason Stop Dose Admin Folic Acid 1 mg 12/18/24 16:23 12/18/24 16:43 Folic Acid 1 Mg Tablet PO 12/18/24 16:24 1 mg STAT ONE Administration Sodium Chloride 1,000 mls @ 999 mls/hr 12/18/24 16:21 12/18/24 17:35 Sodium Chloride 0.9% 1000 Ml IV 12/18/24 17:21 Infused .Q1H1M STA Infusion Sodium Chloride Confirm 12/18/24 16:28 Sodium Chloride 0.9% 1000 Ml Administered 12/18/24 16:29 Dose 1,000 mls @ ud .ROUTE .STK-MED ONE Multivitamins Therapeutic 1 tab 12/18/24 16:24 12/18/24 16:43 Multivitamins,Therapeutic 1 Tab Tab PO 12/18/24 16:25 1 tab STAT ONE Administration Ondansetron HCl 4 mg 12/18/24 16:21 12/18/24 16:32 Ondansetron Hcl 4 Mg/2 Ml Vial IV 12/18/24 16:22 4 mg STAT ONE Administration Ondansetron HCl Confirm 12/18/24 16:28 Ondansetron Hcl 4 Mg/2 Ml Vial Administered 12/18/24 16:29 Dose 4 mg .ROUTE .STK-MED ONE Thiamine HCl 100 mg 12/18/24 16:23 12/18/24 16:43 Thiamine Hcl 100 Mg Tablet PO 12/18/24 16:24 100 mg STAT ONE Administration Lab/Rad Data: Laboratory Result Diagrams 12/18/24 16:45 12/18/24 16:45 Laboratory Results 12/18/24 12/18/24 12/18/24 Range/Units 17:20 17:20 16:45 WBC (4.23-9.07) x10^3/uL RBC (4.63-6.08) x10^6/uL Hgb (13.7-17.5) g/dL Hct (40.1-51.0) % MCV (79.0-92.2) fL MCH (25.7-32.2) pg MCHC (32.3-36.5) g/dL RDW (11.6-14.4) % Plt Count (163-337) x10^3/uL MPV (9.4-12.4) fL Gran % (34.0-67.9) % Immature Gran % (Auto) (0.001-0.429) % Nucleat RBC Rel Count (0.00-0.2) % Eos # (Auto) (0.04-0.54) x10^3/uL Immature Gran # (Auto) (0.001-0.031) x10^3u/L Absolute Lymphs (auto) (1.32-3.57) x10^3/uL Absolute Monos (auto) (0.30-0.82) x10^3/uL Absolute Nucleated RBC (0.00-0.012) x10^3u/L Lymphocytes % (21.8-53.1) % Monocytes % (5.3-12.2) % Eosinophils % (0.8-7.0) % Basophils % (0.2-1.2) % Absolute Granulocytes (1.78-5.38) x10^3/uL Basophils # (0.01-0.08) x10^3/uL Sodium 134 L (135-145) mmol/L Potassium 3.8 (3.5-5.1) mmol/L Chloride 100 (98-107) mmol/L Carbon Dioxide 20 L (22-30) mmol/L Anion Gap 17.6 H (5-15) MEQ/L BUN 3 L (9-20) mg/dL Creatinine 0.51 L (0.66-1.25) mg/dL Estimated GFR 118.3 ML/MIN Glucose 101 (74-106) mg/dL Calcium 9.2 (8.4-10.2) mg/dL Total Bilirubin 0.80 (0.2-1.3) mg/dL AST 381 H (17-59) U/L ALT 279 H (0-50) U/L Alkaline Phosphatase 80 (38-126) U/L Serum Total Protein 7.7 (6.3-8.2) g/dL Albumin 4.6 (3.5-5.0) g/dL Urine Color Yellow (Yellow) Urine Appearance Clear (Clear) Urine pH 6.0 (4.6-8.0) Ur Specific [place] <=1.005 (1.005-1.030) Urine Protein Negative (Negative) Urine Glucose (UA) Negative (Negative) mg/dL Urine Ketones Negative (Negative) Urine Blood Negative (Negative) Urine Nitrite Negative (Negative) Urine Bilirubin Negative (Negative) Urine Urobilinogen 0.2 (0.2) mg/dL Ur Leukocyte Esterase Negative (Negative) U Hyaline Cast (Auto) NONE SEEN (0-2) /LPF Urine Microscopic RBC 0-2 (0-5) /HPF Urine Microscopic WBC 0-2 (0-5) /HPF Ur Epithelial Cells None Seen (None Seen) /HPF Urine Bacteria None Seen (None Seen) /HPF Urine Culture Reflexed NO (NO) Urine Opiates Level NEGATIVE (NEGATIVE) Ur Methadone NEGATIVE (NEGATIVE) Urine Barbiturates NEGATIVE (NEGATIVE) Ur Phencyclidine (PCP) NEGATIVE (NEGATIVE) Urine Amphetamine NEGATIVE (NEGATIVE) U Benzodiazepine Level NEGATIVE (NEGATIVE) Urine Cocaine NEGATIVE (NEGATIVE) Urine Marijuana (THC) POSITIVE A (NEGATIVE) 12/18/24 Range/Units 16:45 WBC 3.3 L (4.23-9.07) x10^3/uL RBC 3.78 L (4.63-6.08) x10^6/uL Hgb 12.5 L (13.7-17.5) g/dL Hct 36.5 L (40.1-51.0) % MCV 96.6 H (79.0-92.2) fL MCH 33.1 H (25.7-32.2) pg MCHC 34.2 (32.3-36.5) g/dL RDW 13.2 (11.6-14.4) % Plt Count 113 L (163-337) x10^3/uL MPV 9.5 (9.4-12.4) fL Gran % 64.0 (34.0-67.9) % Immature Gran % (Auto) 0.3 (0.001-0.429) % Nucleat RBC Rel Count 0.0 (0.00-0.2) % Eos # (Auto) 0.03 L (0.04-0.54) x10^3/uL Immature Gran # (Auto) 0.01 (0.001-0.031) x10^3u/L Absolute Lymphs (auto) 0.84 L (1.32-3.57) x10^3/uL Absolute Monos (auto) 0.30 (0.30-0.82) x10^3/uL Absolute Nucleated RBC 0.00 (0.00-0.012) x10^3u/L Lymphocytes % 25.2 (21.8-53.1) % Monocytes % 9.0 (5.3-12.2) % Eosinophils % 0.9 (0.8-7.0) % Basophils % 0.6 (0.2-1.2) % Absolute Granulocytes 2.13 (1.78-5.38) x10^3/uL Basophils # 0.02 (0.01-0.08) x10^3/uL Sodium (135-145) mmol/L Potassium (3.5-5.1) mmol/L Chloride (98-107) mmol/L Carbon Dioxide (22-30) mmol/L Anion Gap (5-15) MEQ/L BUN (9-20) mg/dL Creatinine (0.66-1.25) mg/dL Estimated GFR ML/MIN Glucose (74-106) mg/dL Calcium (8.4-10.2) mg/dL Total Bilirubin (0.2-1.3) mg/dL AST (17-59) U/L ALT (0-50) U/L Alkaline Phosphatase (38-126) U/L Serum Total Protein (6.3-8.2) g/dL Albumin (3.5-5.0) g/dL Urine Color (Yellow) Urine Appearance (Clear) Urine pH (4.6-8.0) Ur Specific [place] (1.005-1.030) Urine Protein (Negative) Urine Glucose (UA) (Negative) mg/dL Urine Ketones (Negative) Urine Blood (Negative) Urine Nitrite (Negative) Urine Bilirubin (Negative) Urine Urobilinogen (0.2) mg/dL Ur Leukocyte Esterase (Negative) U Hyaline Cast (Auto) (0-2) /LPF Urine Microscopic RBC (0-5) /HPF Urine Microscopic WBC (0-5) /HPF Ur Epithelial Cells (None Seen) /HPF Urine Bacteria (None Seen) /HPF Urine Culture Reflexed (NO) Urine Opiates Level (NEGATIVE) Ur Methadone (NEGATIVE) Urine Barbiturates (NEGATIVE) Ur Phencyclidine (PCP) (NEGATIVE) Urine Amphetamine (NEGATIVE) U Benzodiazepine Level (NEGATIVE) Urine Cocaine (NEGATIVE) Urine Marijuana (THC) (NEGATIVE) - Progress Progress: improved, re-examined Progress Note: 12/18/24 18:44 My medical decision making and the assignment of moderate complexity of this patient's medical issue today is based on review of the patient's past medical history, review the patient's medication list, reviewed patient drug allergy list, history of present illness and physical findings on examination. The workup in this patient includes CT scan of the head, IV placement, infusion of crystalloid solution, infusion of Zofran, CBC, CMP, twelve-lead EKG, urinalysis, urine drug screen, valproic acid level, alcohol level. Differential diagnosis includes was not limited to alcohol intoxication, alcohol withdrawal, dehydration, medication noncompliance, acute intracranial abnormality, seizure breakthrough 12/18/24 18:45 I interpreted the patient's laboratory data results. Based on the laboratory data results, the patient does have elevated transaminases. The values are 381 AST, 279 ALT. Patient also tested positive for marijuana in his urine. CT scan of the head without contrast was interpreted by the radiologist and compared to similar study dated 11/27/2024. There is no evidence of acute intracranial abnormality. There are chronic microvascular changes and senile changes are present and unchanged from the prior study. Counseled pt/family regarding: lab results, diagnosis, need for follow-up, rad results Medical Desision Making - Independent Historian Additional History obtained from: Animal Shelter Supervisor/EMT - Diagnostic Testing Diagnostic test were ordered, analyzed, and reviewed by me: Yes Radiological Interpretation: Reviewed by me, Teleradiologist Report - Risk of complications Low Risk: Low risk of morbidity from additional dx testing or treatment - Departure Departure Disposition: Home Clinical Impression: Breakthrough seizure, Noncompliance with medication regimen, Alcohol intoxication Condition: Stable Critical Care Time: No Referrals: JOANNE MARROQUIN MD [Primary Care Provider, [facility]] - Follow up/PCP as directed Additional Instructions: Avoid alcohol use. Make sure you are taking a multivitamin, daily thiamine and daily folic acid. Make certain you are taking your seizure medication as prescribed. Call your primary care provider and neurologist on 12/20/2024, to make arranges for follow-up appointment for further evaluation management.
[2024-12-18 15:56] VITALS: TEMP 97.5; O2SAT 98
[2024-12-18] MEDS ORDERED: Zofran 4 MG/2 ML VIAL ONE (16:28)
[2024-12-18] MEDS: Zofran 4 MG/2 ML VIAL IV ONE (16:32)
[2024-12-18 16:41] LABS: BASOPHIL % 0.6 % (0.2-1.2); Basophil (Absolute #) 0.02 x10^3/uL (0.01-0.08); Eosinophil (Absolute #) 0.03 x10^3/uL (0.04-0.54); Hematocrit 36.5 % (40.1-51.0); Hemoglobin 12.5 g/dL (13.7-17.5); IMMATURE GRAN # 0.01 x10^3u/L (0.001-0.031); IMMATURE GRAN % 0.3 % (0.001-0.429); Lymphocyte (Absolute #) 0.84 x10^3/uL (1.32-3.57); Mean Corpuscular Hemoglobin 33.1 pg (25.7-32.2); Mean Corpuscular Hgb Concent. 34.2 g/dL (32.3-36.5); Monocyte (Absolute #) 0.30 x10^3/uL (0.30-0.82); NUCLEATED RBC # 0.00 x10^3u/L (0.00-0.012); NUCLEATED RBC % 0.0 % (0.00-0.2); Platelet Count 113 x10^3/uL (163-337); Red Blood Count 3.78 x10^6/uL (4.63-6.08); White Blood Count 3.3 x10^3/uL (4.23-9.07)
[2024-12-18] MEDS: THERAGRAN MULTIVITAMIN PO ONE (16:43)
[2024-12-18] MEDS: VITAMIN B-1 100 MG PO ONE (16:43)
[2024-12-18] MEDS: FOLATE 1 MG PO ONE (16:43)
[2024-12-18 16:56] LABS: Calcium 9.2 mg/dL (8.4-10.2); Carbon Dioxide 20.0 mmol/L (22-30); Creatinine 1 0.51 mg/dL (0.66-1.25); EST GLOMERULAR FILTRATION RATE 118.3 ML/MIN; Glucose 101.0 mg/dL (74-106); Potassium 3.8 mmol/L (3.5-5.1); SGOT/AST 381.0 U/L (17-59); SGPT/ALT 279.0 U/L (0-50); Total Protein 7.7 g/dL (6.3-8.2)
[2024-12-18 17:37] LABS: Glucose, Urine Negative (Negative); Protein,Urine Dip Negative (Negative); RBC 0-2 /HPF (0-5); WBC 0-2 /HPF (0-5)
--- NOTE | 2024-12-18 17:38 | XRAY ---
CLINICAL HISTORY: Breakthrough seizure COMPARISON: 11/27/2024. TECHNIQUE: Axial non-contrast CT scan of the brain was performed from the skull base to the high parietal region. One of the following dose reduction techniques was utilized for this exam: automated exposure control, adjustment of the mA and/or kV according to patient size, or use of iterative reconstruction. FINDINGS: Brain Parenchyma: Mild periventricular white matter hypodensities are present, suggesting chronic microvascular ischemic changes. There is no evidence of acute infarct, hemorrhage, or mass effect. There are no abnormal areas of hypoattenuation or hyperattenuation. Ventricular System: The ventricles are prominent in size and configuration. Subarachnoid Spaces: The sulci and cisterns are prominent. There is no evidence of subarachnoid hemorrhage or extra-axial fluid collections. Cerebellum and Brainstem: There are no masses, lesions, or areas of abnormal density. Orbits: The globes, optic nerves, and extraocular muscles have a normal appearance. There is no evidence of orbital masses or abnormal density. Sinuses: The paranasal sinuses are clear. There is no evidence of sinusitis or mucosal thickening. Mastoid Air Cells: The mastoid air cells are clear. There is no evidence of mastoiditis. Skull: The skull demonstrates normal morphology. IMPRESSION: 1. No acute intracranial abnormality. 2. Chronic microvascular ischemic changes and senile changes are unchanged. Electronically Signed by: Marcio Nath MD. (12/18/2024 17:37:06 EDT)
[2024-12-18 17:43] LABS: Amphetamine,Urine NEGATIVE (NEGATIVE); Barbiturate,Urine NEGATIVE (NEGATIVE); Benzodiazepine,Urine NEGATIVE (NEGATIVE); Cocaine,Urine NEGATIVE (NEGATIVE); Methadone,Urine NEGATIVE (NEGATIVE); Opiate,Urine NEGATIVE (NEGATIVE); PCP,Urine NEGATIVE (NEGATIVE); THC,Urine POSITIVE (NEGATIVE)
[2024-12-18 18:11] VITALS: PULSE 73; RESP 19
[2024-12-18 18:52] VITALS: BP 151/95
== END 2024-12-18 18:54 | disposition home or self-care (01) ==
LOC: ED 15:37
DX: G40.909 Epilepsy, unspecified, not intractable, without status epilepticus (principal); Z91.148 Patient's other noncompliance with medication regimen for other reason; F10.129 Alcohol abuse with intoxication, unspecified; I10 Essential (primary) hypertension; Z79.899 Other long term (current) drug therapy; Z72.0 Tobacco use